=== PATIENT | male | born 1930 | race Caucasian/White ===

== ENCOUNTER 2016-12-05 16:38 | Inpatient (IN) | payer MEDICARE, OTHER ==
[~2016-12-05] VITALS: Ht 182.9 cm; Wt 88.5 kg
--- NOTE | 2016-12-05 16:38 | Emergency Room Report ---
History of Present Illness General Source: Patient, EMS Present Illness HPI [id number] sent from PMD for ?new onset Atrial fib Patient just got back from [place], had 6 days progressive SOB No chest pain, fever/chills, cough No history of asthma, COPD, CHF History of HTN, DM EMS strip shows sinus tach. Qwaves in v1-2 ST depression in V5 ECG from PMDs shows Atrial fib with RVR wo [address] depression Was given albuterol by EMS for wheezing Allergies: Coded Allergies: No Known Allergies (Unverified , 12/05/16) Patient History Past Medical History: DM, HTN Past Surgical History: none Pertinent Family History: none Social History: Denies: smoking, alcohol use, drug use Immunizations: UTD Reviewed Nursing Documentation: PMH: Agreed, PSxH: Agreed Review of Systems All Other Systems: negative except mentioned in HPI Physical Exam Sp02 EP Interpretation: reviewed, normal General Appearance: normal inspection, well appearing, no apparent distress, alert, GCS 15, non-toxic Head: normocephalic, atraumatic Eyes: bilateral eye PERRL, bilateral eye EOMI ENT: normal ENT inspection, hearing grossly normal, normal voice Neck: normal inspection, full range of motion, supple, no bony tend Respiratory: normal inspection, lungs clear, normal breath sounds, no respiratory distress, no retraction, wheezing Cardiovascular #1: regular rate, rhythm, no edema Gastrointestinal: normal inspection, normal bowel sounds, non tender, soft, no guarding, no hernia Genitourinary: no CVA tenderness Musculoskeletal: normal inspection, back normal, normal range of motion, Rina' s Sign negative Neurologic: normal inspection, alert, oriented x3, responsive, grab operator III-XII nml as tested, motor strength/tone normal, speech normal Psychiatric: normal inspection, judgement/insight normal, mood/affect normal Medical Decision Making Medicare Attestation I Cheyanne Loya MD hereby attest that the medical record entry for date of service, 12/05/16 accurately reflects signatures/notations that I made in my capacity as MD when I treated/diagnosed the above listed Medicare beneficiary. I attest that this information is true, accurate and complete to the best of my knowledge. I understand that any falsification, omission, or concealment of material fact may subject me to administrative, civil, or criminal liability. This patient warrants hospital admission for extreme of age and has a condition that cannot be treated as outpatient. Diagnostic Impression: Primary Impression: SOB (shortness of breath) Additional Impressions: Atrial fibrillation Qualified Codes: I48.91 - Unspecified atrial fibrillation Acute CHF (congestive heart failure) Qualified Codes: I50.9 - Heart failure, unspecified JAYNE (acute kidney injury) ER Course ?new onset Atrial Fib. Rate controlled to 118 Wheeze possibly cardiac wheeze, acute onset CHF from ?new onset Atrial fib CXR with diffuse pulm congestion New onset atrial fib ASA given Troponin 0. Likely cause of acute CHF Given low dose lopressor, HR now <100 Acute CHF Low dose lasix given BNP elevated Possible rll pna pn CXR Blood Cx pending Abx given for CAP Endorsed tele admit Dr Nickerson at 524pm EKG Diagnostic Results Rate: tachycardiac Rhythm: other - Atrial fib Rhythm Strip Diag. Results EP Interpretation: yes - 111 Rate: 111 Rhythm: NSR, no PVC's, no ectopy Chest X-Ray Diagnostic Results Chest X-Ray Diagnostic Results : Chest X-Ray Ordered: Yes Indication: Shortness of Breath EP Interpretation: Yes Interpretation: no pneumothorax, other - Diffuse pulm congestion. POssible right LL PNA Status: improved Disposition: ADMITTED INPATIENT Condition: Serious CHEYANNE LOYA M.D. Dec 05, 2016 16:38
[2016-12-05 16:42] VITALS: BP 130/8
[2016-12-05] MEDS ORDERED: Metoprolol 5mg/5ml Inj IVP SCH (17:15)
[2016-12-05 17:18] LABS: BASOPHILS % (AUTO) 0.8 % (0.0-2.0); EOSINOPHILS % (AUTO) 0.5 % (0.0-3.0); LYMPHOCYTES % (AUTO) 11.1 % (20.0-45.0); MEAN CORPUSCULAR VOLUME 95 FL (80-99); MEAN PLATELET VOLUME 6.7 FL (6.5-10.1); NEUTROPHILS % (AUTO) 79.6 % (45.0-75.0); PLATELET COUNT 349 K/UL (150-450); RED BLOOD COUNT 2.83 M/UL (4.70-6.10); RED CELL DISTRIBUTION WIDTH 11.1 % (11.6-14.8); WHITE BLOOD COUNT 12.5 K/UL (4.8-10.8)
[2016-12-05 17:39] LABS: TROPONIN I < 0.30 ng/mL (<=0.30)
[2016-12-05 17:40] LABS: ALANINE AMINOTRANSFERASE 27 U/L (3-41); ALBUMIN/GLOBULIN RATIO 1.6 (1.0-2.7); ANION GAP 14 (5-15); ASPARTATE AMINO TRANSFERASE 40 U/L (5-40); CALCIUM 8.7 mg/dL (8.6-10.2); CARBON DIOXIDE 22 mEQ/L (20-30); CHLORIDE 100 mEQ/L (98-107); CREATININE 2.6 mg/dL (0.7-1.2); HEMOLYSIS 0; POTASSIUM 3.8 mEQ/L (3.4-4.9); SODIUM 136 mEQ/L (135-145); TOTAL PROTEIN 6.3 g/dL (6.6-8.7)
[2016-12-05 17:50] LABS: CKMB 2.8 ng/mL (< 6.7)
[2016-12-05] MEDS ORDERED: DuoNeb 0.5-3(2.5)mg/3ml neb HHN PRN (18:15)
[2016-12-05] MEDS ORDERED: Miralax 17gm pkt ORAL PRN (18:15)
[2016-12-05] MEDS ORDERED: LANTUS5 UNITS SUBQ (19:16)
[2016-12-05 19:20] VITALS: BP 127/69
[2016-12-05 20:35] VITALS: BP 126/71
[2016-12-05] MEDS: Heparin 5000 units/ml inj SUBQ SCH (22:24)
[2016-12-06 00:26] VITALS: BP 160/58
[2016-12-06 04:13] VITALS: BP 132/66
[2016-12-06] MEDS: NovoLOG Insulin Flexpen SUBQ SCH ×5 (06:52→20:53)
[2016-12-06 07:08] LABS: BASOPHILS % (AUTO) 0.7 % (0.0-2.0); LYMPHOCYTES % (AUTO) 13.2 % (20.0-45.0); MEAN CORPUSCULAR HEMOGLOBIN 32.6 PG (27.0-31.0); MEAN CORPUSCULAR HGB CONC 34.6 G/DL (32.0-36.0); MEAN CORPUSCULAR VOLUME 94 FL (80-99); MEAN PLATELET VOLUME 6.8 FL (6.5-10.1); MONOCYTES % (AUTO) 8.5 % (1.0-10.0); NEUTROPHILS % (AUTO) 75.7 % (45.0-75.0); PLATELET COUNT 406 K/UL (150-450); RED BLOOD COUNT 3.04 M/UL (4.70-6.10); RED CELL DISTRIBUTION WIDTH 11.1 % (11.6-14.8); WHITE BLOOD COUNT 11.1 K/UL (4.8-10.8)
[2016-12-06 07:29] LABS: ANION GAP 16 (5-15); CARBON DIOXIDE 24 mEQ/L (20-30); CHLORIDE 103 mEQ/L (98-107); CREATININE 2.4 mg/dL (0.7-1.2); HEMOLYSIS 1; PHOSPHORUS 3.6 mg/dL (2.5-4.8); POTASSIUM 3.7 mEQ/L (3.4-4.9); SODIUM 143 mEQ/L (135-145)
[2016-12-06] MEDS: Heparin 5000 units/ml inj SUBQ SCH (08:57)
[2016-12-06 09:00] VITALS: BP 140/63
--- NOTE | 2016-12-06 10:10 | Diagnostic Imaging Report ---
Indication: SOB Technique: One view of the chest Comparison: none Findings: There is bilateral mostly interstitial edema versus infiltrates, with some airspace consolidation as well. Pleural spaces appear clear. Heart is enlarged. Impression: Bilateral infiltrates versus edema Cardiomegaly
--- NOTE | 2016-12-06 11:27 | Diagnostic Imaging Report ---
Indication: DYSPNEA Technique: One view of the chest Comparison: none Findings: Better inspiration on the current and the previous exam. There is slightly increased infiltrate in the right upper lobe. There is interim resolution of previously demonstrated right basilar infiltrate. There is some patchy consolidation in the left perihilar region. Generalized interstitial congestion has improved. Pleural spaces remain clear. Impression: Interstitial edema has overall improved. Focal airspace consolidation at the right lung base has resolved. There is increased consolidation in the right upper lobe and left perihilar region
[2016-12-06 12:00] VITALS: BP 116/78
--- NOTE | 2016-12-06 12:41 | History and Physical ---
History of Present Illness General Date patient seen: Dec 06, 2016 Reason for Hospitalization: Dyspnea/Respdistress Present Illness HPI 86 year ld male with hx of DM, HTN sent from [facility] for new onset Atrial fib. Patient just got back from [place], had 6 days progressive SOB No chest pain, fever/chills, cough. . EMS strip shows sinus tach. Pt was in and out of afib in ER. Initial CXR showed cardiomegaly and pulmonary edema, +/- infiltrate. Pt has dry cough and doesn't recall having fever or chills. Allergies: Coded Allergies: No Known Allergies (Unverified , 12/05/16) Medication History Scheduled Insulin Glargine (Lantus), 15 SUBQ BEDTIME, (Reported) Patient History Healthcare decision maker Resuscitation status Full Code Advanced Directive on File No Past Medical/Surgical History Past Medical/Surgical History: (1) Diabetes mellitus (2) Hypertension Review of Systems Constitutional: Reports: malaise Respiratory: Reports: cough, wheezing Physical Exam Lines, tubes and drains: peripheral HEENT: normocephalic, anicteric Neck: non-tender, normal alignment Respiratory/Chest: chest wall non-tender, lungs clear, expiratory wheezing Cardiovascular/Chest: normal peripheral pulses, normal rate Genitourinary/Rectal: normal genital exam, normal rectal exam Last 24 Hour Vital Signs Date Time Temp Pulse Resp B/P (MAP) Pulse Ox O2 Delivery O2 Flow Rate FiO2 12/06/16 12:00 97.8 74 20 116/78 98 Room Air 12/06/16 09:00 97.7 73 21 140/63 98 Nasal Cannula 2.0 12/06/16 08:00 75 12/06/16 07:52 Nasal Cannula 2.0 28 12/06/16 07:51 96 Nasal Cannula 2.0 28 12/06/16 07:50 68 20 Nasal Cannula 2.0 28 12/06/16 04:13 98.1 65 20 132/66 94 Nasal Cannula 2.0 12/06/16 04:00 69 12/06/16 00:26 98.0 77 20 160/58 96 Nasal Cannula 2.0 12/06/16 00:00 74 12/05/16 21:00 71 12/05/16 20:35 98.6 121 32 126/71 93 Nasal Cannula 2.0 12/05/16 19:49 98.6 107 32 127/69 91 Nasal Cannula 2.0 12/05/16 19:30 Nasal Cannula 2.0 28 12/05/16 19:30 95 Nasal Cannula 2.0 28 12/05/16 19:30 114 20 Nasal Cannula 2.0 28 12/05/16 19:20 107 32 127/69 91 Nasal Cannula 2.0 12/05/16 17:35 129 128/74 12/05/16 16:42 89 28 T-piece 5.0 12/05/16 16:42 98.6 22 130/8 90 Room Air 12/05/16 16:32 98.6 118 22 130/8 90 Room Air Laboratory Tests Test 12/05/16 16:32 12/06/16 06:20 White Blood Count 12.5 K/UL (4.8-10.8) H 11.1 K/UL (4.8-10.8) H Red Blood Count 2.83 M/UL (4.70-6.10) L 3.04 M/UL (4.70-6.10) L Hemoglobin 9.6 G/DL (14.2-18.0) L 9.9 G/DL (14.2-18.0) L Hematocrit 26.7 % (42.0-52.0) L 28.6 % (42.0-52.0) L Mean Corpuscular Volume 95 FL (80-99) 94 FL (80-99) Mean Corpuscular Hemoglobin 34.0 PG (27.0-31.0) H 32.6 PG (27.0-31.0) H Mean Corpuscular Hemoglobin Concent 36.0 G/DL (32.0-36.0) 34.6 G/DL (32.0-36.0) Red Cell Distribution Width 11.1 % (11.6-14.8) L 11.1 % (11.6-14.8) L Platelet Count 349 K/UL (150-450) 406 K/UL (150-450) Mean Platelet Volume 6.7 FL (6.5-10.1) 6.8 FL (6.5-10.1) Neutrophils (%) (Auto) 79.6 % (45.0-75.0) H 75.7 % (45.0-75.0) H Lymphocytes (%) (Auto) 11.1 % (20.0-45.0) L 13.2 % (20.0-45.0) L Monocytes (%) (Auto) 8.0 % (1.0-10.0) 8.5 % (1.0-10.0) Eosinophils (%) (Auto) 0.5 % (0.0-3.0) 2.0 % (0.0-3.0) Basophils (%) (Auto) 0.8 % (0.0-2.0) 0.7 % (0.0-2.0) Sodium Level 136 mEQ/L (135-145) 143 mEQ/L (135-145) Potassium Level 3.8 mEQ/L (3.4-4.9) 3.7 mEQ/L (3.4-4.9) Chloride Level 100 mEQ/L (98-107) 103 mEQ/L (98-107) Carbon Dioxide Level 22 mEQ/L (20-30) 24 mEQ/L (20-30) Anion Gap 14 (5-15) 16 (5-15) H Blood Urea Nitrogen 42 mg/dL (7-23) H 38 mg/dL (7-23) H Creatinine 2.6 mg/dL (0.7-1.2) H 2.4 mg/dL (0.7-1.2) H Estimat Glomerular Filtration Rate mL/min (>60) mL/min (>60) Glucose Level 282 mg/dL (74-106) H 163 mg/dL (74-106) #H Calcium Level 8.7 mg/dL (8.6-10.2) 9.0 mg/dL (8.6-10.2) Total Bilirubin 0.5 mg/dL (0.0-1.2) Aspartate Amino Transf (AST/SGOT) 40 U/L (5-40) Alanine Aminotransferase (ALT/SGPT) 27 U/L (3-41) Alkaline Phosphatase 111 U/L (40-129) Total Creatine Kinase 186 U/L (38-174) H Creatine Kinase MB 2.8 ng/mL (< 6.7) Creatine Kinase MB Relative Index 1.5 Troponin I < 0.30 ng/mL (<=0.30) Pro-B-Type Natriuretic Peptide 68943 pg/mL (0-450) H Total Protein 6.3 g/dL (6.6-8.7) L Albumin 3.9 g/dL (3.5-5.2) 3.0 g/dL (3.5-5.2) L Globulin 2.4 g/dL Albumin/Globulin Ratio 1.6 (1.0-2.7) Phosphorus Level 3.6 mg/dL (2.5-4.8) Height (Feet): 6 Height (Inches): 0.00 Weight (Pounds): 191 Medications Current Medications Medications (Trade) Dose Ordered Sig/Nitin Route PRN Reason Start Time Stop Time Status Last Admin Dose Admin Acetaminophen (Tylenol) 650 mg Q4H PRN ORAL T>100.5 12/05/16 18:15 01/04/17 18:14 Albuterol/ Ipratropium (DuoNeb 0.5-3(2.5)mg/3ml) 3 ml Q4H PRN HHN Shortness of Breath 12/05/16 18:15 12/10/16 18:14 Cetylpyridinium Chloride (Cepacol) 1 lozenge Q6HR PRN DUNG SORE THROAT 12/05/16 22:15 01/04/17 22:14 12/05/16 22:23 Dextrose (Dextrose 50%) STAT PRN IV Hypoglycemia 12/05/16 21:45 01/04/17 21:44 Furosemide (Lasix) 40 mg EVERY 8 HOURS IV 12/05/16 22:00 01/04/17 21:59 12/06/16 06:49 Heparin Sodium (Porcine) (Heparin 5000 units/ml) 5,000 units EVERY 12 HOURS SUBQ 12/05/16 21:00 01/04/17 20:59 12/06/16 08:57 Insulin Aspart (NovoLOG) BEFORE MEALS AND HS SUBQ 12/05/16 23:00 01/04/17 22:59 12/06/16 11:19 Ondansetron HCl (Zofran) 4 mg Q6H PRN IVP Nausea & Vomiting 12/05/16 18:15 01/04/17 18:14 Polyethylene Glycol (Miralax) 17 gm DAILYPRN PRN ORAL Constipation 12/05/16 18:15 01/04/17 18:14 Temazepam (Restoril) 15 mg HSPRN PRN ORAL Insomnia 12/05/16 21:00 12/12/16 20:59 Assessment/Plan Problem List: (1) Acute CHF (congestive heart failure) ICD Codes: I50.9 - Heart failure, unspecified SNOMED: 67539745 Qualifiers: Qualified Codes: I50.9 - Heart failure, unspecified (2) ATN (acute tubular necrosis) ICD Codes: N17.0 - Acute kidney failure with tubular necrosis SNOMED: 81749639 (3) Atrial fibrillation ICD Codes: I48.91 - Unspecified atrial fibrillation SNOMED: 12695615 Qualifiers: Qualified Codes: I48.91 - Unspecified atrial fibrillation (4) Hypertension ICD Codes: I10 - Essential (primary) hypertension SNOMED: 97531617 (5) Diabetes mellitus ICD Codes: E11.9 - Type 2 diabetes mellitus without complications SNOMED: 05382705 Assessment/Plan cardiac evaluation rate control check sputum, check BNP sliding scale, diabetic diet respiratory treatment cardio will decide about anticoagulation ENOC BUSCH Dec 06, 2016 12:41
[2016-12-06] MEDS ORDERED: Promethazine/Codeine 5ml UD ORAL PRN (14:00)
[2016-12-06 14:10] LABS: URIC ACID 10.5 mg/dL (3.0-7.5)
--- NOTE | 2016-12-06 14:11 | Consultation ---
Consult Note Consult Note asked to eval for renal failure HPI 86YOM sent from PMD for ?new onset Atrial fib Patient just got back from [place], had 6 days progressive SOB No chest pain, fever/chills, cough No history of asthma, COPD, CHF History of HTN, DM EMS strip shows sinus tach. Qwaves in v1-2 ST depression in V5 ECG from PMDs shows Atrial fib with RVR wo [address] Was given albuterol by EMS for wheezing Patient interviewed , examined- data reviewed . Assessment/Plan Renal failure , likely chronic , possible superimposed acute Anemia, likely chronic HTN DM presents with SOB , whezzing- Atrial fibrillation - h/o Prostate Ca and surgery- incontinent h/o Back surgery Plan: 2D Echo- Kidney LISA- UA- optimize cardiac and pulmonary status- Anemia cordova- Avoid Nephrotoxics- keep BP and BS in check MILKA VALDEZ Dec 06, 2016 14:11
--- NOTE | 2016-12-06 15:05 | Cardiology Progress Note ---
Assessment/Plan Assessment/Plan afib rvr spont converted to sinus recent nocturnal palpitation 2-3 weeks pneumonia dm htn cva hx prostate cnacer s/ reection hs fo bacteremia 1 yearago arf on crf cad hs s/p stent 2001 converted to sinus but has noted episodes of palp at nite fortheh past 2-3 week as devestating as a stroke could be will place on anticoagual tion and monitor on tele and outpt with ziopatch will have echo keep on tele treat underlying lung infection [id number] Objective Last 24 Hour Vital Signs Date Time Temp Pulse Resp B/P (MAP) Pulse Ox O2 Delivery O2 Flow Rate FiO2 12/06/16 12:00 97.8 74 20 116/78 98 Room Air 12/06/16 09:00 97.7 73 21 140/63 98 Nasal Cannula 2.0 12/06/16 08:00 75 12/06/16 07:52 Nasal Cannula 2.0 28 12/06/16 07:51 96 Nasal Cannula 2.0 28 12/06/16 07:50 68 20 Nasal Cannula 2.0 28 12/06/16 04:13 98.1 65 20 132/66 94 Nasal Cannula 2.0 12/06/16 04:00 69 12/06/16 00:26 98.0 77 20 160/58 96 Nasal Cannula 2.0 12/06/16 00:00 74 12/05/16 21:00 71 12/05/16 20:35 98.6 121 32 126/71 93 Nasal Cannula 2.0 12/05/16 19:49 98.6 107 32 127/69 91 Nasal Cannula 2.0 12/05/16 19:30 Nasal Cannula 2.0 28 12/05/16 19:30 95 Nasal Cannula 2.0 28 12/05/16 19:30 114 20 Nasal Cannula 2.0 28 12/05/16 19:20 107 32 127/69 91 Nasal Cannula 2.0 12/05/16 17:35 129 128/74 12/05/16 16:42 89 28 T-piece 5.0 12/05/16 16:42 98.6 22 130/8 90 Room Air 12/05/16 16:32 98.6 118 22 130/8 90 Room Air Laboratory Tests Test 12/05/16 16:32 12/06/16 06:20 12/06/16 06:43 White Blood Count 12.5 K/UL (4.8-10.8) H 11.1 K/UL (4.8-10.8) H Red Blood Count 2.83 M/UL (4.70-6.10) L 3.04 M/UL (4.70-6.10) L Hemoglobin 9.6 G/DL (14.2-18.0) L 9.9 G/DL (14.2-18.0) L Hematocrit 26.7 % (42.0-52.0) L 28.6 % (42.0-52.0) L Mean Corpuscular Volume 95 FL (80-99) 94 FL (80-99) Mean Corpuscular Hemoglobin 34.0 PG (27.0-31.0) H 32.6 PG (27.0-31.0) H Mean Corpuscular Hemoglobin Concent 36.0 G/DL (32.0-36.0) 34.6 G/DL (32.0-36.0) Red Cell Distribution Width 11.1 % (11.6-14.8) L 11.1 % (11.6-14.8) L Platelet Count 349 K/UL (150-450) 406 K/UL (150-450) Mean Platelet Volume 6.7 FL (6.5-10.1) 6.8 FL (6.5-10.1) Neutrophils (%) (Auto) 79.6 % (45.0-75.0) H 75.7 % (45.0-75.0) H Lymphocytes (%) (Auto) 11.1 % (20.0-45.0) L 13.2 % (20.0-45.0) L Monocytes (%) (Auto) 8.0 % (1.0-10.0) 8.5 % (1.0-10.0) Eosinophils (%) (Auto) 0.5 % (0.0-3.0) 2.0 % (0.0-3.0) Basophils (%) (Auto) 0.8 % (0.0-2.0) 0.7 % (0.0-2.0) Sodium Level 136 mEQ/L (135-145) 143 mEQ/L (135-145) Potassium Level 3.8 mEQ/L (3.4-4.9) 3.7 mEQ/L (3.4-4.9) Chloride Level 100 mEQ/L (98-107) 103 mEQ/L (98-107) Carbon Dioxide Level 22 mEQ/L (20-30) 24 mEQ/L (20-30) Anion Gap 14 (5-15) 16 (5-15) H Blood Urea Nitrogen 42 mg/dL (7-23) H 38 mg/dL (7-23) H Creatinine 2.6 mg/dL (0.7-1.2) H 2.4 mg/dL (0.7-1.2) H Estimat Glomerular Filtration Rate mL/min (>60) mL/min (>60) Glucose Level 282 mg/dL (74-106) H 163 mg/dL (74-106) #H Calcium Level 8.7 mg/dL (8.6-10.2) 9.0 mg/dL (8.6-10.2) Total Bilirubin 0.5 mg/dL (0.0-1.2) Aspartate Amino Transf (AST/SGOT) 40 U/L (5-40) Alanine Aminotransferase (ALT/SGPT) 27 U/L (3-41) Alkaline Phosphatase 111 U/L (40-129) Total Creatine Kinase 186 U/L (38-174) H 114 U/L (38-174) Creatine Kinase MB 2.8 ng/mL (< 6.7) Creatine Kinase MB Relative Index 1.5 Troponin I < 0.30 ng/mL (<=0.30) Pro-B-Type Natriuretic Peptide 35447 pg/mL (0-450) H Total Protein 6.3 g/dL (6.6-8.7) L Albumin 3.9 g/dL (3.5-5.2) 3.0 g/dL (3.5-5.2) L Globulin 2.4 g/dL Albumin/Globulin Ratio 1.6 (1.0-2.7) Phosphorus Level 3.6 mg/dL (2.5-4.8) Uric Acid 10.5 mg/dL (3.0-7.5) H ARACELI PAULSON Dec 06, 2016 15:05
[2016-12-06 15:47] LABS: APPEARANCE,URINE CLEAR; KETONES,URINE NEGATIVE (NEGATIVE); LEUKOCYTE ESTERASE ,URINE NEGATIVE (NEGATIVE); NITRITE,URINE NEGATIVE (NEGATIVE); PH,URINE 6 (4.5-8.0); PROTEIN,URINE NEGATIVE (NEGATIVE); UROBILINOGEN,URINE NORMAL MG/DL (0.0-1.0)
[2016-12-06 16:00] VITALS: BP 146/64
[2016-12-06 16:09] LABS: AMORPHOUS SEDIMENT,UR FEW /LPF; BACTERIA,URINE FEW /HPF; RBC,URINE 0-2 /HPF (0 - 0); WBC,URINE 0-2 /HPF (0 - 0)
[2016-12-06] MEDS: Eliquis 2.5mg tablet ORAL SCH (16:28)
[2016-12-06 20:00] VITALS: BP 138/57
[2016-12-06] MEDS ORDERED: Diltiazem 25mg/5ml IV ONE (20:30)
[2016-12-06] MEDS: Amiodarone 200mg tab ORAL SCH (20:51)
--- NOTE | 2016-12-06 23:06 | Consultation ---
Consult Note Consult Note ID DIC # [id number] VALERIA PATIÑO M.D. Dec 06, 2016 23:06
[2016-12-07] VITALS (7 sets, daily range): BP systolic 106–140; BP diastolic 56–79
--- NOTE | 2016-12-07 05:15 | Consultation ---
DATE OF CONSULTATION: 12/06/2016 CARDIOLOGY CONSULTATION REFERRING PHYSICIAN: Lilli Nickerson M.D. REASON FOR REFERRAL: Atrial fibrillation. History of Present Illness: This is an elderly gentleman whose information is obtained from the patient directly and from review of the patient's chart. He has had a trip to [place] last week. When he returned, he was fine the first day, second day he developed some sore throat, not feeling good, and he hardly could get out of bed and waited for few days to see if the symptoms would resolve. Yesterday, he went to his primary care physician. He was told to go to the emergency room, 911 was summoned and the patient was brought to the emergency room at [facility]. He really does not have any chest pain. He does have some shortness of breath, but there is no PND or orthopnea. He has had some shortness of breath with exertion and has had occasional palpitations, mainly during the night over the past three or four weeks that he has noticed. There is no syncope. His walking is limited mainly because of his recent hip surgery, although some shortness of breath component is also there, but may be limitation because of his hip surgery. On a trip, he did walk some half a block and he had to stop because of his hip. However, he has been doing more poorly recently. Past Medical History: Positive for diabetes and high blood pressure. His records at [facility] were reviewed. He was hospitalized back in 2016 and diagnosis with status post laminectomy with L4-L5 decompression with strep bacteremia, acute kidney failure on chronic renal insufficiency secondary to volume depletion on top of baseline abnormality, anemia and urinary incontinence. He does have a history of prostate cancer for which a prostatectomy was performed in 1993. He has had some problems with incontinence that he has been followed at [facility] as well as at [facility]. He has coronary disease, status post percutaneous coronary angioplasty and stent in 2001. 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 ALLERGIES: None. Social History: He never smoked or drank. He is retired. 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 has apparently dementia. He has two daughters in the area that he is hoping will come by and visit him later tonight. Review Of Systems: Gastrointestinal: He denies any nausea or vomiting. No diarrhea. No bloody or black stool. Genitourinary: Negative. Pulmonary: Positive for coughing, congestion and wheezing. Cardiac: As mentioned in HPI. Constitutional: Not feeling good and some rigors have been noted. PHYSICAL EXAMINATION: General: The patient to be elderly gentleman, in no apparent respiratory distress. Neck: Supple. No jugular venous distention. No abdominojugular reflux noted. Lungs: Appear to be clear to auscultation and percussion. He has rhonchi and expiratory wheezes. Cardiac: S1 is normal. S2 is normal. Regular rate and rhythm. No heaves or thrills noted. ABDOMEN: Soft and nontender. Positive bowel sounds. Extremities: There is no clubbing, cyanosis, nor is there any edema of significant degree. NEUROLOGICAL: Appears to be normal. Laboratory And Diagnostic Data: His EKG shows atrial fibrillation, ventricular response appears to be rapid at times. He has had heart rates in excess of 150 on telemetry, but he subsequently converted and the duration of time that he was in atrial fibrillation unfortunately is not completely clear to me. His QRS complexes do not seem to be any different than they were on his EKG from 2004, although as mentioned, he was in atrial fibrillation and at times that he has been converted to sinus rhythm already. Laboratory values, white count 11.5, hemoglobin 9.9, and platelet count of 406,000. His sodium is 143, potassium 3.7, chloride 103, bicarbonate 24, BUN 38, creatinine 2.4 and glucose of 163 down from 282. His uric acid is 10.5. Calcium is 9. His CK of 114 down from 183. Troponin first set is less than 0.3. ProBNP is 10,657. Albumin is 3. A chest x-ray was performed at the time of admission, bilateral infiltrates versus edema and cardiomegaly were documented on the chest x-ray. Repeat chest x-ray shows better inspiration, increased infiltrate in the right upper lobe, resolution of right basal infiltrate, some patchy consolidation in left parahilar region, generalized interstitial congestion has improved. Pleural spaces remained clear. ASSESSMENT: 1. Probable underlying pneumonia. 2. Episode of atrial fibrillation down spontaneously converted to sinus rhythm. 3. Diabetes mellitus. 4. Hypertension. 5. Chronic renal insufficiency. 6. Anemia. 7. History of bacteremia. 8. Prostate cancer status post resection. 9. History of urinary incontinence. Plan: Dr. Nickerson, this patient was seen in cardiac consultation at the time of his initial presentation for his atrial fibrillation at times with rapid ventricular response. He has got some risk factors for stroke including diabetes mellitus, high blood pressure, prior CVA as well as age and gender. In that regard, he should be on anticoagulation, however, the duration of his atrial fibrillations are unknown. He does indicate that for the past two to three months, he has been feeling rapid heart beats mainly at night and that may need to be considered in decision of putting him on anticoagulation. Because of the risk of stroke being so devastating, I think probably we would place him on some low-dose Eliquis for the time being. He has no significant fall. He should be followed up over the next few weeks to see if he has recurrence of atrial fibrillation and if he had to evaluate his atrial fibrillation burden with event monitors as an outpatient to eventually decide whether he should be on anticoagulation longer time or not. Copies of [facility] records have been reviewed and addended as part of the patient's present chart for everyone else to review as well. Of note, his creatinine of 2.6 when compared to his prior creatinine that is available through the [employer] system appears to be higher than his last one in September 2016, creatinine of 1.7. Fan Sheikh M.D. DR: DEVIN JOB#: [id number] CC:
[2016-12-07] MEDS: Amiodarone 200mg tab ORAL SCH ×3 (05:37→21:34)
[2016-12-07] MEDS: NovoLOG Insulin Flexpen SUBQ SCH ×4 (06:33→21:36)
[2016-12-07 08:08] LABS: MEAN CORPUSCULAR HGB CONC 33.9 G/DL (32.0-36.0); MEAN CORPUSCULAR VOLUME 94 FL (80-99); MEAN PLATELET VOLUME 6.6 FL (6.5-10.1); PLATELET COUNT 487 K/UL (150-450); RED BLOOD COUNT 3.39 M/UL (4.70-6.10); RED CELL DISTRIBUTION WIDTH 11.2 % (11.6-14.8); WHITE BLOOD COUNT 10.5 K/UL (4.8-10.8)
[2016-12-07 08:21] LABS: CRP QUANT 8.8 mg/dL (< 0.5); MAGNESIUM 1.6 mg/dL (1.7-2.5); PHOSPHORUS 3.5 mg/dL (2.5-4.8); URIC ACID 11.6 mg/dL (3.0-7.5)
[2016-12-07 08:22] LABS: TROPONIN I < 0.30 ng/mL (<=0.30)
[2016-12-07 08:25] LABS: ALANINE AMINOTRANSFERASE 26 U/L (3-41); ALBUMIN/GLOBULIN RATIO 0.9 (1.0-2.7); ANION GAP 15 (5-15); ASPARTATE AMINO TRANSFERASE 31 U/L (5-40); CALCIUM 8.8 mg/dL (8.6-10.2); CARBON DIOXIDE 24 mEQ/L (20-30); CHLORIDE 99 mEQ/L (98-107); CHOLESTEROL 96 mg/dL (< 200); CHOLESTEROL/HDL RATIO 4.8 (3.3-4.4); CREATININE 2.8 mg/dL (0.7-1.2); LACTATE DEHYDROGENASE 254 U/L (135-230); LDL CHOLESTEROL (CALC.) 52 mg/dL (60-99); POTASSIUM 3.8 mEQ/L (3.4-4.9); SODIUM 138 mEQ/L (135-145); TOTAL PROTEIN 6.3 g/dL (6.6-8.7)
[2016-12-07 08:32] LABS: FERRITIN 317 ng/mL (10-230)
[2016-12-07 08:50] LABS: INR 1.1 (0.9-1.1); PROTHROMBIN TIME 11.3 SEC (9.30-11.50)
[2016-12-07 08:54] LABS: IRON 31 ug/dL (59-158); TOTAL IRON BINDING CAPACITY 161 ug/dL (250-400)
[2016-12-07] MEDS: Eliquis 2.5mg tablet ORAL SCH ×2 (09:08→17:12)
[2016-12-07 09:14] LABS: ERYTHROCYTE SEDIMENTATION RATE 115 MM/HR (0-30); PATH BLOOD SMEAR/OMC SENT TO PATHOLOGIST; RETICULOCYTE COUNT 1.1 % (0.0-2.0)
[2016-12-07 09:54] LABS: EOSINOPHILS % (MANUAL) 3 % (0-3); LYMPHOCYTES % (MANUAL) 14 % (20-45); NEUTROPHILS % (MANUAL) 78 % (45-75); TOTAL CELLS COUNTED 100
[2016-12-07 09:55] LABS: BAND NEUTROPHILS % (MANUAL) 0 % (0-8); BASOPHILS % (MANUAL) 0 % (0-2); HYPOCHROMASIA 1+; PLATELET ESTIMATE ADEQUATE
--- NOTE | 2016-12-07 10:15 | Consultation ---
DATE OF CONSULTATION: 12/06/2016 INFECTIOUS DISEASES CONSULTATION CONSULTING PHYSICIAN: Loi Breen M.D. REFERRING PHYSICIAN: Lilli Nickerson M.D. REASON FOR CONSULTATION: Evaluation of the patient for pneumonia. History of present illness: The patient is an 86-year-old male with multiple medical problems, who was admitted to this medical center due to the shortness of breath that was progressive recently. The patient's workup was suggestive of AFib. Chest x-ray showed pulmonary edema and cardiomegaly. Denies having fever and chills. Infectious Diseases consultation has been requested for further evaluation of the patient and antibiotic management. PAST MEDICAL HISTORY: 1. History of prostate cancer. 2. History of diabetes. 3. History of knee replacement and shoulder surgery. MEDICATIONS: Levaquin. ALLERGIES: No known drug allergies. SOCIAL HISTORY: The patient lives at home. FAMILY HISTORY: Not contributing. Review of systems: HEENT: No recent change in vision or hearing. Pulmonary: As mentioned above. No significant cough, mostly shortness of breath. Cardiovascular: As mentioned above. Gastrointestinal/Abdomen: No nausea or vomiting. Genitourinary: No dysuria. Musculoskeletal: As mentioned above. PHYSICAL EXAMINATION: Vital signs: Temperature 98, blood pressure 138/57, pulse rate 50, and respiratory rate 18. HEENT: No pale conjunctivae. No icterus. NECK: No lymphadenopathy. CHEST: Clear. HEART: S1 and S2. ABDOMEN: Soft. EXTREMITIES: No cyanosis at this time. NEUROLOGICAL: He is awake and alert. Laboratory data: White blood cells 12.5, hemoglobin 9.9, and platelets 406. UA is unremarkable. BUN and creatinine 2.4. ALT, AST, and alkaline phosphatase are unremarkable. Diagnostic data: Chest x-ray, interstitial edema with focal consolidation in the right lung base and right upper lobe and left perihilar region. ASSESSMENT: The patient is an 86-year-old male with: 1. Possible healthcare-associated pneumonia. 2. Shortness of breath due to the above versus congestive heart failure. 3. Leukocytosis, improving. 4. Afebrile. 5. History of prostate cancer. 6. Diabetes. 7. Status post knee replacement and shoulder surgery. PLAN: 1. We will continue the patient on Levaquin day #2/5. 2. Monitor CBC. 3. Monitor BMP. 4. Monitor chest x-ray. 5. Follow up renal and Nephrology recommendation regarding renal insufficiency. 6. Monitor culture (blood and sputum). 7. Based on the patient's clinical course and labs, we will do further recommendation. Thank you, Dr. Nickerson,for allowing me to participate in the care of this patient. I will follow the patient with you during this hospitalization. Loi Breen M.D. DR: Kalpesh JOB#: [id number] CC:
--- NOTE | 2016-12-07 10:41 | Diagnostic Imaging Report ---
Indication: Abnormal renal function tests Technique: Grayscale and duplex images of the kidneys, retroperitoneum, and bladder were obtained. Comparison:None Findings: Right kidney measures 10.3 cm in length. Left kidney measures 11 cm in length. Both kidneys demonstrate normal echogenicity. No hydronephrosis. No focal abnormality. Normal inferior vena cava. Bladder is normal. Impression: negative.
--- NOTE | 2016-12-07 11:44 | Pulmonology Progress Note ---
Assessment/Plan Problems: (1) Acute CHF (congestive heart failure) (2) Atrial fibrillation (3) ATN (acute tubular necrosis) (4) Hypertension (5) Diabetes mellitus Assessment/Plan on amiodarone, Eliquis started sliding scale continue abx / levoflox pt/ot dc when heart rate better. Subjective ROS Limited/Unobtainable: No Interval Events: feeling better, less cough Constitutional: Reports: fever Allergies: Coded Allergies: No Known Allergies (Unverified , 12/05/16) Objective Last 24 Hour Vital Signs Date Time Temp Pulse Resp B/P (MAP) Pulse Ox O2 Delivery O2 Flow Rate FiO2 12/07/16 08:00 97.5 64 16 117/59 95 Nasal Cannula 3.0 12/07/16 07:42 Nasal Cannula 2.0 12/07/16 07:41 94 Nasal Cannula 2.0 12/07/16 07:40 80 20 Nasal Cannula 2.0 12/07/16 06:39 86 121/64 12/07/16 04:23 112 12/07/16 04:11 98.1 95 18 140/66 94 Nasal Cannula 2.0 12/07/16 00:21 110 140/79 12/07/16 00:06 102 12/07/16 00:00 98.0 110 20 140/79 94 Nasal Cannula 3.0 12/06/16 20:35 85 138/57 12/06/16 20:00 98.2 76 18 138/57 93 Nasal Cannula 2.0 12/06/16 19:53 79 12/06/16 19:30 94 Nasal Cannula 2.0 12/06/16 19:30 120 20 Nasal Cannula 2.0 12/06/16 19:30 Nasal Cannula 2.0 12/06/16 17:55 81 125/66 12/06/16 16:00 97.5 77 21 146/64 91 Nasal Cannula 2.0 12/06/16 16:00 84 12/06/16 15:25 72 20 97 Nasal Cannula 2.0 12/06/16 15:20 70 20 93 Nasal Cannula 2.0 12/06/16 12:00 97.8 74 20 116/78 98 Room Air 12/06/16 12:00 73 General Appearance: WD/WN HEENT: normocephalic, atraumatic Respiratory/Chest: chest wall non-tender, lungs clear Cardiovascular: normal peripheral pulses, normal rate Abdomen: normal bowel sounds, soft, non tender Genitourinary: normal external genitalia 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 Lymphatic: no neck adenopathy Microbiology Date/Time Source Procedure Growth Status 12/05/16 21:45 Blood Blood Culture - Preliminary NO GROWTH AFTER 24 HOURS Resulted 12/05/16 21:30 Blood Blood Culture - Preliminary NO GROWTH AFTER 24 HOURS Resulted Laboratory Tests 12/06/16 15:20: Urine Color Pale yellow, Urine Appearance Clear, Urine pH 6, Urine Specific [place] 1.005, Urine Protein Negative, Urine Glucose (UA) Negative, Urine Ketones Negative, Urine Occult Blood Negative, Urine Nitrite Negative, Urine Bilirubin Negative, Urine Urobilinogen Normal, Urine Leukocyte Esterase Negative , Urine RBC 0-2H, Urine WBC 0-2, Urine Squamous Epithelial Cells None, Urine Amorphous Sediment FewH, Urine Bacteria Few, Urine Eosinophils None seen, Urine Random Sodium 129, Urine Potassium Timed 11 12/07/16 08:00: White Blood Count 10.5, Red Blood Count 3.39L, Hemoglobin 10.9L, Hematocrit 32.0L, Mean Corpuscular Volume 94, Mean Corpuscular Hemoglobin 32.0H, Mean Corpuscular Hemoglobin Concent 33.9, Red Cell Distribution Width 11.2L, Platelet Count 487H, Mean Platelet Volume 6.6, Neutrophils (%) (Auto) , Lymphocytes (%) (Auto) , Monocytes (%) (Auto) , Eosinophils (%) (Auto) , Basophils (%) (Auto) , Differential Total Cells Counted 100, Neutrophils % ( Manual) 78H, Lymphocytes % (Manual) 14L, Monocytes % (Manual) 5, Eosinophils % ( Manual) 3, Basophils % (Manual) 0, Band Neutrophils 0, Platelet Estimate Adequate, Platelet Morphology , Giant Platelets 1+, Hypochromasia 1+, Erythrocyte Sedimentation Rate 115H, Reticulocyte Count 1.1, Prothrombin Time 11.3, Prothromb Time International Ratio 1.1, Activated Partial Thromboplast Time 30, Sodium Level 138, Potassium Level 3.8, Chloride Level 99, Carbon Dioxide Level 24, Anion Gap 15, Blood Urea Nitrogen 41H, Creatinine 2.8H, Estimat Glomerular Filtration Rate , Glucose Level 304#H, Hemoglobin A1c 6.9H, Uric Acid 11.6H, Calcium Level 8.8, Phosphorus Level 3.5, Magnesium Level 1.6L, Iron Level 31L, Total Iron Binding Capacity 161L, Percent Iron Saturation 19, Unsaturated Iron Binding 130, Ferritin 317H, Total Bilirubin 0.5, Gamma Glutamyl Transpeptidase 26, Aspartate Amino Transf (AST/SGOT) 31, Alanine Aminotransferase (ALT/SGPT) 26, Alkaline Phosphatase 116, Lactate Dehydrogenase 254H, Troponin I < 0.30, C-Reactive Protein, Quantitative 8.8H, Pro-B-Type Natriuretic Peptide 4269H, Total Protein 6.3L, Albumin 3.1L, Globulin 3.2, Albumin/Globulin Ratio 0.9L, Triglycerides Level 122, Cholesterol Level 96, LDL Cholesterol 52L, HDL Cholesterol 20, Cholesterol/HDL Ratio 4.8H, Carcinoembryonic Antigen 1.8, Vitamin B12 Level 691, Folate [Pending], Thyroid Stimulating Hormone (TSH) 1.980 Current Medications Medications (Trade) Dose Ordered Sig/Nitin Route PRN Reason Start Time Stop Time Status Last Admin Dose Admin Acetaminophen (Tylenol) 650 mg Q4H PRN ORAL T>100.5 12/05/16 18:15 01/04/17 18:14 Albuterol/ Ipratropium (DuoNeb 0.5-3(2.5)mg/3ml) 3 ml Q4H PRN HHN Shortness of Breath 12/05/16 18:15 12/10/16 18:14 12/06/16 15:29 Amiodarone HCl (Cordarone) 200 mg Q8HR ORAL 12/06/16 21:00 01/05/17 20:59 12/07/16 05:37 Apixaban (Eliquis) 2.5 mg BID ORAL 12/06/16 16:00 01/05/17 15:59 12/07/16 09:08 Cetylpyridinium Chloride (Cepacol) 1 lozenge Q6HR PRN DUNG SORE THROAT 12/05/16 22:15 01/04/17 22:14 12/05/16 22:23 Dextrose (Dextrose 50%) STAT PRN IV Hypoglycemia 12/05/16 21:45 01/04/17 21:44 Diltiazem HCl (Cardizem) 30 mg EVERY 6 HOURS ORAL 12/06/16 18:00 01/05/17 17:59 12/07/16 06:39 Furosemide (Lasix) 40 mg Q12HR IV 12/06/16 21:00 01/05/17 20:59 12/07/16 09:09 Insulin Aspart (NovoLOG) BEFORE MEALS AND HS SUBQ 12/05/16 23:00 01/04/17 22:59 12/07/16 06:33 Levofloxacin 50 ml @ 50 mls/hr Q24H IVPB 12/07/16 15:00 12/14/16 14:59 Ondansetron HCl (Zofran) 4 mg Q6H PRN IVP Nausea & Vomiting 12/05/16 18:15 01/04/17 18:14 Pantoprazole (Protonix) 40 mg BID ORAL 12/06/16 14:15 01/05/17 14:14 12/07/16 09:08 Polyethylene Glycol (Miralax) 17 gm DAILYPRN PRN ORAL Constipation 12/05/16 18:15 01/04/17 18:14 Promethazine HCl/ Codeine (Phenergan with Codeine) 5 ml Q4H PRN ORAL For Cough 12/06/16 14:00 01/05/17 13:59 Temazepam (Restoril) 15 mg HSPRN PRN ORAL Insomnia 12/05/16 21:00 12/12/16 20:59 ENOC BUSCH Dec 07, 2016 11:44
--- NOTE | 2016-12-07 12:14 | Wound Care Consultation ---
Wound Assessment Wound Assessment #1: Wound Number: 1 Wound Present on Admission: No New Wound: Yes Status Change of Wound: No Wound Location Body Site Modif: mid Wound Location Body Site: sacral Wound Type: pressure ulcer Doug Test: Does not Doug Pressure Ulcer Stage: II Wound Thickness: Partial Thickness Wound Length: 0.8 Wound Width: 0.5 Wound Depth: less than 0.1 Percent of Wound Blunt/Red: 100 Wound Drainage Description: Serosanguineous Wound Drainage Amount: Scant Wound Drainage Odor: None/Absent Tissue Surrounding Wound: Erythemic Wound General Appearance: Reddened Wound Assessment #2: Wound Number: 2 Wound Present on Admission: Yes New Wound: No Status Change of Wound: No Wound Location Body Site Modif: left Wound Location Body Site: ear Wound Type: scab Doug Test: Does not Duog Wound Thickness: Full Thickness Wound Length: 0.5 Wound Width: 0.2 Wound Depth: utd Percent of Wound Bed Yellow/Wh: 100 - dry Wound Drainage Amount: None Wound Drainage Odor: None/Absent Tissue Surrounding Wound: Intact Wound General Appearance: Asymptomatic Wound Assessment #3: Wound Number: 3 Wound Present on Admission: Yes New Wound: No Status Change of Wound: No Wound Location Body Site Modif: right Wound Location Body Site: ear Wound Type: scab Doug Test: Does not Doug Wound Thickness: Full Thickness Wound Length: 0.3 Wound Width: 0.3 Wound Depth: utd Percent of Wound Bed Yellow/Wh: 100 - dry Wound Drainage Amount: None Wound Drainage Odor: None/Absent Tissue Surrounding Wound: Intact Wound General Appearance: Asymptomatic Wound Assessment #4: Wound Number: 4 Wound Present on Admission: No New Wound: Yes Status Change of Wound: No Wound Location Body Site Modif: left, right, mid, upper Wound Location Body Site: back Wound Type: rash Doug Test: Does not Doug Percent of Wound Blunt/Red: 100 Wound Drainage Amount: None Wound Drainage Odor: None/Absent Tissue Surrounding Wound: Intact Wound General Appearance: Reddened Wound Comment #1 Sacral stage II pressure ulcer #2 Left ear dry scab #3 Right ear dry scab #4 Back area with rashes Recommendation -Keep clean and dry -Turn and reposition -Low air loss [facility] mattress -Local wound care per protocol -Optimize nutrition -Offload both heels -Heel protector on both heels -Assess and f/u accordingly for any changes MIKE FOOTE RN Dec 07, 2016 12:14
[2016-12-07] MEDS: Levofloxacin 250mg/D5W 50ml IVPB SCH (14:24)
[2016-12-07] MEDS ORDERED: Tubing IV Secondary IV ONE (14:53)
[2016-12-07] MEDS ORDERED: NS 275ml ONE (14:53)
--- NOTE | 2016-12-07 16:04 | General Progress Note ---
Assessment/Plan Status: stable Status Narrative Cr alex 2.8 Assessment/Plan Renal failure , likely chronic , possible superimposed acute Anemia, likely chronic HTN DM presents with SOB , whezzing- Atrial fibrillation - h/o Prostate Ca and surgery- incontinent h/o Back surgery Plan: 2D Echo- pending Kidney LISA- negative UA- optimize cardiac and pulmonary status- Anemia cordova- Avoid Nephrotoxics- keep BP and BS in check Subjective ROS Limited/Unobtainable: No Constitutional: Reports: malaise Allergies: Coded Allergies: No Known Allergies (Unverified , 12/05/16) Objective Last 24 Hour Vital Signs Date Time Temp Pulse Resp B/P (MAP) Pulse Ox O2 Delivery O2 Flow Rate FiO2 12/07/16 12:00 98.1 67 18 140/60 93 Nasal Cannula 3.0 12/07/16 12:00 67 12/07/16 11:51 64 117/59 12/07/16 08:00 97.5 64 16 117/59 95 Nasal Cannula 3.0 12/07/16 08:00 104 12/07/16 07:42 Nasal Cannula 2.0 12/07/16 07:41 94 Nasal Cannula 2.0 12/07/16 07:40 80 20 Nasal Cannula 2.0 12/07/16 06:39 86 121/64 12/07/16 04:23 112 12/07/16 04:11 98.1 95 18 140/66 94 Nasal Cannula 2.0 12/07/16 00:21 110 140/79 12/07/16 00:06 102 12/07/16 00:00 98.0 110 20 140/79 94 Nasal Cannula 3.0 12/06/16 20:35 85 138/57 12/06/16 20:00 98.2 76 18 138/57 93 Nasal Cannula 2.0 12/06/16 19:53 79 12/06/16 19:30 94 Nasal Cannula 2.0 12/06/16 19:30 120 20 Nasal Cannula 2.0 12/06/16 19:30 Nasal Cannula 2.0 28 12/06/16 17:55 81 125/66 Laboratory Tests 12/07/16 08:00: White Blood Count 10.5, Red Blood Count 3.39L, Hemoglobin 10.9L, Hematocrit 32.0L, Mean Corpuscular Volume 94, Mean Corpuscular Hemoglobin 32.0H, Mean Corpuscular Hemoglobin Concent 33.9, Red Cell Distribution Width 11.2L, Platelet Count 487H, Mean Platelet Volume 6.6, Neutrophils (%) (Auto) , Lymphocytes (%) (Auto) , Monocytes (%) (Auto) , Eosinophils (%) (Auto) , Basophils (%) (Auto) , Differential Total Cells Counted 100, Neutrophils % ( Manual) 78H, Lymphocytes % (Manual) 14L, Monocytes % (Manual) 5, Eosinophils % ( Manual) 3, Basophils % (Manual) 0, Band Neutrophils 0, Platelet Estimate Adequate, Platelet Morphology , Giant Platelets 1+, Hypochromasia 1+, Erythrocyte Sedimentation Rate 115H, Reticulocyte Count 1.1, Prothrombin Time 11.3, Prothromb Time International Ratio 1.1, Activated Partial Thromboplast Time 30, Sodium Level 138, Potassium Level 3.8, Chloride Level 99, Carbon Dioxide Level 24, Anion Gap 15, Blood Urea Nitrogen 41H, Creatinine 2.8H, Estimat Glomerular Filtration Rate , Glucose Level 304#H, Hemoglobin A1c 6.9H, Uric Acid 11.6H, Calcium Level 8.8, Phosphorus Level 3.5, Magnesium Level 1.6L, Iron Level 31L, Total Iron Binding Capacity 161L, Percent Iron Saturation 19, Unsaturated Iron Binding 130, Ferritin 317H, Total Bilirubin 0.5, Gamma Glutamyl Transpeptidase 26, Aspartate Amino Transf (AST/SGOT) 31, Alanine Aminotransferase (ALT/SGPT) 26, Alkaline Phosphatase 116, Lactate Dehydrogenase 254H, Troponin I < 0.30, C-Reactive Protein, Quantitative 8.8H, Pro-B-Type Natriuretic Peptide 4269H, Total Protein 6.3L, Albumin 3.1L, Globulin 3.2, Albumin/Globulin Ratio 0.9L, Triglycerides Level 122, Cholesterol Level 96, LDL Cholesterol 52L, HDL Cholesterol 20, Cholesterol/HDL Ratio 4.8H, Carcinoembryonic Antigen 1.8, Vitamin B12 Level 691, Folate [Pending], Thyroid Stimulating Hormone (TSH) 1.980 Height (Feet): 6 Height (Inches): 0.00 Weight (Pounds): 173 General Appearance: other - not short of breath Cardiovascular: normal rate Respiratory/Chest: decreased breath sounds Abdomen: soft MILKA VALDEZ Dec 07, 2016 16:04
[2016-12-07] MEDS: Allopurinol 100mg Tab ORAL SCH (17:06)
--- NOTE | 2016-12-07 18:14 | Cardiology Progress Note ---
Assessment/Plan Assessment/Plan 1. Probable underlying pneumonia. 2. Episode of atrial fibrillation paroxysmal 3. Diabetes mellitus. 4. Hypertension. 5. Chronic renal insufficiency. 6. Anemia. 7. History of bacteremia. 8. Prostate cancer status post resection. 9. History of urinary incontinence. on eliquis went bck adn forth with afib flutter over nite on several occasion needed iv dilt i have started him on amiod for nwo keep on eliquis hold duonebs as increases tachy keep on tele Atrovent hhn tele reviewed d/w rn Subjective Cardiovascular: Denies: chest pain, lightheadedness, palpitations Respiratory: Reports: cough, SOB with excertion, sputum Gastrointestinal/Abdominal: Denies: black stools Genitourinary: Denies: burning Objective Last 24 Hour Vital Signs Date Time Temp Pulse Resp B/P (MAP) Pulse Ox O2 Delivery O2 Flow Rate FiO2 12/07/16 17:05 73 106/60 12/07/16 16:00 97.9 73 17 106/60 96 Nasal Cannula 3.0 12/07/16 12:00 98.1 67 18 140/60 93 Nasal Cannula 3.0 12/07/16 12:00 67 12/07/16 11:51 64 117/59 12/07/16 08:00 97.5 64 16 117/59 95 Nasal Cannula 3.0 12/07/16 08:00 104 12/07/16 07:42 Nasal Cannula 2.0 28 12/07/16 07:41 94 Nasal Cannula 2.0 28 12/07/16 07:40 80 20 Nasal Cannula 2.0 28 12/07/16 06:39 86 121/64 12/07/16 04:23 112 12/07/16 04:11 98.1 95 18 140/66 94 Nasal Cannula 2.0 12/07/16 00:21 110 140/79 12/07/16 00:06 102 12/07/16 00:00 98.0 110 20 140/79 94 Nasal Cannula 3.0 12/06/16 20:35 85 138/57 12/06/16 20:00 98.2 76 18 138/57 93 Nasal Cannula 2.0 12/06/16 19:53 79 12/06/16 19:30 94 Nasal Cannula 2.0 28 12/06/16 19:30 120 20 Nasal Cannula 2.0 28 12/06/16 19:30 Nasal Cannula 2.0 28 General Appearance: no apparent distress, alert Neck: no JVD Cardiovascular: normal rate Respiratory/Chest: crackles/rales, rhonchi - bilaterally Abdomen: normal bowel sounds, non tender, soft Extremities: no swelling Laboratory Tests Test 12/07/16 08:00 White Blood Count 10.5 K/UL (4.8-10.8) Red Blood Count 3.39 M/UL (4.70-6.10) L Hemoglobin 10.9 G/DL (14.2-18.0) L Hematocrit 32.0 % (42.0-52.0) L Mean Corpuscular Volume 94 FL (80-99) Mean Corpuscular Hemoglobin 32.0 PG (27.0-31.0) H Mean Corpuscular Hemoglobin Concent 33.9 G/DL (32.0-36.0) Red Cell Distribution Width 11.2 % (11.6-14.8) L Platelet Count 487 K/UL (150-450) H Mean Platelet Volume 6.6 FL (6.5-10.1) Neutrophils (%) (Auto) % (45.0-75.0) Lymphocytes (%) (Auto) % (20.0-45.0) Monocytes (%) (Auto) % (1.0-10.0) Eosinophils (%) (Auto) % (0.0-3.0) Basophils (%) (Auto) % (0.0-2.0) Differential Total Cells Counted 100 Neutrophils % (Manual) 78 % (45-75) H Lymphocytes % (Manual) 14 % (20-45) L Monocytes % (Manual) 5 % (1-10) Eosinophils % (Manual) 3 % (0-3) Basophils % (Manual) 0 % (0-2) Band Neutrophils 0 % (0-8) Platelet Estimate Adequate Platelet Morphology Giant Platelets 1+ Hypochromasia 1+ Erythrocyte Sedimentation Rate 115 MM/HR (0-30) H Reticulocyte Count 1.1 % (0.0-2.0) Prothrombin Time 11.3 SEC (9.30-11.50) Prothromb Time International Ratio 1.1 (0.9-1.1) Activated Partial Thromboplast Time 30 SEC (23-33) Sodium Level 138 mEQ/L (135-145) Potassium Level 3.8 mEQ/L (3.4-4.9) Chloride Level 99 mEQ/L (98-107) Carbon Dioxide Level 24 mEQ/L (20-30) Anion Gap 15 (5-15) Blood Urea Nitrogen 41 mg/dL (7-23) H Creatinine 2.8 mg/dL (0.7-1.2) H Estimat Glomerular Filtration Rate mL/min (>60) Glucose Level 304 mg/dL (74-106) #H Hemoglobin A1c 6.9 % (< 6.0) H Uric Acid 11.6 mg/dL (3.0-7.5) H Calcium Level 8.8 mg/dL (8.6-10.2) Phosphorus Level 3.5 mg/dL (2.5-4.8) Magnesium Level 1.6 mg/dL (1.7-2.5) L Iron Level 31 ug/dL (59-158) L Total Iron Binding Capacity 161 ug/dL (250-400) L Percent Iron Saturation 19 % (15-50) Unsaturated Iron Binding 130 ug/dL (112-346) Ferritin 317 ng/mL (10-230) H Total Bilirubin 0.5 mg/dL (0.0-1.2) Gamma Glutamyl Transpeptidase 26 U/L (8-61) Aspartate Amino Transf (AST/SGOT) 31 U/L (5-40) Alanine Aminotransferase (ALT/SGPT) 26 U/L (3-41) Alkaline Phosphatase 116 U/L (40-129) Lactate Dehydrogenase 254 U/L (135-230) H Troponin I < 0.30 ng/mL (<=0.30) C-Reactive Protein, Quantitative 8.8 mg/dL (< 0.5) H Pro-B-Type Natriuretic Peptide 4269 pg/mL (0-450) H Total Protein 6.3 g/dL (6.6-8.7) L Albumin 3.1 g/dL (3.5-5.2) L Globulin 3.2 g/dL Albumin/Globulin Ratio 0.9 (1.0-2.7) L Triglycerides Level 122 mg/dL (< 150) Cholesterol Level 96 mg/dL (< 200) LDL Cholesterol 52 mg/dL (60-99) L HDL Cholesterol 20 mg/dL (> 60) Cholesterol/HDL Ratio 4.8 (3.3-4.4) H Carcinoembryonic Antigen 1.8 ng/mL Vitamin B12 Level 691 pg/mL (211-946) Folate Pending Thyroid Stimulating Hormone (TSH) 1.980 uIU/mL (0.300-4.500) Microbiology Date/Time Source Procedure Growth Status 12/05/16 21:45 Blood Blood Culture - Preliminary NO GROWTH AFTER 24 HOURS Resulted 12/05/16 21:30 Blood Blood Culture - Preliminary NO GROWTH AFTER 24 HOURS Resulted ARACELI PAULSON Dec 07, 2016 18:14
[2016-12-07] MEDS: Ipratropium 0.02% Inh Soln 2.5ml UD HHN SCH (19:48)
[2016-12-08 03:57] VITALS: BP 128/54
[2016-12-08] MEDS: Amiodarone 200mg tab ORAL SCH ×2 (05:39→17:39)
[2016-12-08] MEDS: NovoLOG Insulin Flexpen SUBQ SCH ×4 (06:28→21:38)
[2016-12-08 07:41] LABS: BASOPHILS % (AUTO) 0.7 % (0.0-2.0); EOSINOPHILS % (AUTO) 3.7 % (0.0-3.0); LYMPHOCYTES % (AUTO) 13.9 % (20.0-45.0); MEAN CORPUSCULAR HEMOGLOBIN 31.9 PG (27.0-31.0); MEAN CORPUSCULAR HGB CONC 34.2 G/DL (32.0-36.0); MEAN CORPUSCULAR VOLUME 93 FL (80-99); MEAN PLATELET VOLUME 6.5 FL (6.5-10.1); MONOCYTES % (AUTO) 7.4 % (1.0-10.0); NEUTROPHILS % (AUTO) 74.3 % (45.0-75.0); PLATELET COUNT 520 K/UL (150-450); RED BLOOD COUNT 3.34 M/UL (4.70-6.10); WHITE BLOOD COUNT 10.3 K/UL (4.8-10.8)
[2016-12-08] MEDS: Ipratropium 0.02% Inh Soln 2.5ml UD HHN SCH ×3 (07:42→19:12)
[2016-12-08 08:00] VITALS: BP 123/48
[2016-12-08 08:06] LABS: PHOSPHORUS 4.3 mg/dL (2.5-4.8); URIC ACID 11.6 mg/dL (3.0-7.5)
[2016-12-08 08:13] LABS: ALANINE AMINOTRANSFERASE 22 U/L (3-41); ALBUMIN/GLOBULIN RATIO 0.8 (1.0-2.7); ANION GAP 15 (5-15); ASPARTATE AMINO TRANSFERASE 25 U/L (5-40); CALCIUM 8.8 mg/dL (8.6-10.2); CARBON DIOXIDE 24 mEQ/L (20-30); CHLORIDE 101 mEQ/L (98-107); HEMOLYSIS 3; SODIUM 140 mEQ/L (135-145); TOTAL PROTEIN 6.4 g/dL (6.6-8.7)
--- NOTE | 2016-12-08 09:41 | Pulmonology Progress Note ---
Assessment/Plan Assessment/Plan ASSESSMENT SOB possible CAP A fib ( new onset) with RVR ( off and on) acute diastolic CHF ARF on CKD HTN DM anemia of chronic disease prostate Ca , s/p surgery sacral decub st 2 , POA PLAN OF CARE tele O2 HHN prn s/p diuresis , off Lasix due to worsening creatinine pro BNP trending down fup CXR with improvement in congestive changes cardio follows rate control with Amiodarone and Cardizem -controlled a/coagulation with Eliquis ECHO with pEF 55% and RVSP of 23, mild LVH Venous Duplex BLE negative BP management with Cardizem and optimize as needed empiric abx, blood cx preliminary negative ID follows BS management with SS of insulin, [id number] at goal renal failure likely chronic with some element of acute, nephro follows creat worse, off diuresis renal US negative, no hydro, normal echogenicity bilaterally GI prophylaxis monitor HH, stays at baseline, CEA WNL wound care as per wound nurse recommendations case discussed and evaluated by supervising physician Subjective Allergies: Coded Allergies: No Known Allergies (Unverified , 12/05/16) Subjective denies chest pain, admits to intermittent SOB, dry cough occasional palpitations, no dizziness Objective Last 24 Hour Vital Signs Date Time Temp Pulse Resp B/P (MAP) Pulse Ox O2 Delivery O2 Flow Rate FiO2 12/08/16 08:23 73 20 93 Nasal Cannula 3.0 12/08/16 08:19 Nasal Cannula 4.0 12/08/16 08:19 92 Nasal Cannula 4.0 12/08/16 08:18 75 20 92 Nasal Cannula 4.0 12/08/16 06:32 74 127/48 12/08/16 03:57 98.2 76 20 128/54 97 Room Air 12/08/16 03:47 66 12/08/16 00:01 85 125/56 12/08/16 00:00 67 12/07/16 23:56 98.5 84 21 125/56 93 Nasal Cannula 2.0 12/07/16 20:35 71 12/07/16 20:03 97.9 72 20 124/57 98 Room Air 12/07/16 20:02 74 18 95 Nasal Cannula 3.0 32 12/07/16 19:49 72 18 93 Nasal Cannula 3.0 32 12/07/16 19:48 Nasal Cannula 3.0 32 12/07/16 19:48 93 Nasal Cannula 3.0 32 12/07/16 17:05 73 106/60 12/07/16 16:00 80 12/07/16 16:00 97.9 73 17 106/60 96 Nasal Cannula 3.0 12/07/16 12:00 98.1 67 18 140/60 93 Nasal Cannula 3.0 12/07/16 12:00 67 12/07/16 11:51 64 117/59 General Appearance: no acute distress, other - awake, alert, responsive HEENT: normocephalic, atraumatic, anicteric, mucous membranes moist Respiratory/Chest: no respiratory distress, no accessory muscle use, rhonchi - few scattered , other Cardiovascular: normal rate, regular rhythm - SR with off and on A fib with RVR occasionally ( 130) , no JVD Abdomen: soft, non tender, non distended Genitourinary: normal external genitalia Extremities: no edema, pedal pulses normal Neurologic/Psychiatric: abnormal gait, alert, oriented x 3, responsive Musculoskeletal: atrophy Microbiology Date/Time Source Procedure Growth Status 12/05/16 21:45 Blood Blood Culture - Preliminary NO GROWTH AFTER 48 HOURS Resulted 12/05/16 21:30 Blood Blood Culture - Preliminary NO GROWTH AFTER 48 HOURS Resulted Laboratory Tests 12/08/16 05:20: White Blood Count 10.3, Red Blood Count 3.34L, Hemoglobin 10.7L, Hematocrit 31.2L, Mean Corpuscular Volume 93, Mean Corpuscular Hemoglobin 31.9H, Mean Corpuscular Hemoglobin Concent 34.2, Red Cell Distribution Width 11.0L, Platelet Count 520H, Mean Platelet Volume 6.5, Neutrophils (%) (Auto) 74.3, Lymphocytes (%) (Auto) 13.9L, Monocytes (%) (Auto) 7.4, Eosinophils (%) (Auto) 3.7H, Basophils (%) (Auto) 0.7, Sodium Level 140, Potassium Level 4.0, Chloride Level 101, Carbon Dioxide Level 24, Anion Gap 15, Blood Urea Nitrogen 43H, Creatinine 3.0H, Estimat Glomerular Filtration Rate , Glucose Level 256H, Uric Acid 11.6H, Calcium Level 8.8, Phosphorus Level 4.3, Magnesium Level 2.2, Total Bilirubin 0.4, Aspartate Amino Transf (AST/SGOT) 25, Alanine Aminotransferase ( ALT/SGPT) 22, Alkaline Phosphatase 122, Pro-B-Type Natriuretic Peptide 1865H, Total Protein 6.4L, Albumin 3.0L, Globulin 3.4, Albumin/Globulin Ratio 0.8L Current Medications Medications (Trade) Dose Ordered Sig/Nitin Route PRN Reason Start Time Stop Time Status Last Admin Dose Admin Acetaminophen (Tylenol) 650 mg Q4H PRN ORAL T>100.5 12/05/16 18:15 01/04/17 18:14 Allopurinol (Zyloprim) 100 mg DAILY ORAL 12/07/16 16:30 01/06/17 16:29 12/07/16 17:06 Amiodarone HCl (Cordarone) 200 mg Q8HR ORAL 12/06/16 21:00 01/05/17 20:59 12/08/16 05:39 Apixaban (Eliquis) 2.5 mg BID ORAL 12/06/16 16:00 01/05/17 15:59 12/07/16 17:12 Cetylpyridinium Chloride (Cepacol) 1 lozenge Q6HR PRN DUNG SORE THROAT 12/05/16 22:15 01/04/17 22:14 12/05/16 22:23 Clotrimazole (Lotrimin) 1 applic EVERY 12 HOURS TOPIC 12/07/16 21:00 01/06/17 20:59 12/07/16 21:34 Dextrose (Dextrose 50%) STAT PRN IV Hypoglycemia 12/05/16 21:45 01/04/17 21:44 Diltiazem HCl (Cardizem) 30 mg EVERY 6 HOURS ORAL 12/06/16 18:00 01/05/17 17:59 12/08/16 06:32 Insulin Aspart (NovoLOG) BEFORE MEALS AND HS SUBQ 12/05/16 23:00 01/04/17 22:59 12/08/16 06:28 Ipratropium [place] (Atrovent) 500 mcg TIDRT HHN 12/07/16 19:00 12/12/16 18:59 12/08/16 07:42 Levofloxacin 50 ml @ 50 mls/hr Q24H IVPB 12/07/16 15:00 12/14/16 14:59 12/07/16 14:24 Ondansetron HCl (Zofran) 4 mg Q6H PRN IVP Nausea & Vomiting 12/05/16 18:15 01/04/17 18:14 Pantoprazole (Protonix) 40 mg BID ORAL 12/06/16 14:15 01/05/17 14:14 12/07/16 17:12 Polyethylene Glycol (Miralax) 17 gm DAILYPRN PRN ORAL Constipation 12/05/16 18:15 01/04/17 18:14 Promethazine HCl/ Codeine (Phenergan with Codeine) 5 ml Q4H PRN ORAL For Cough 12/06/16 14:00 01/05/17 13:59 Temazepam (Restoril) 15 mg HSPRN PRN ORAL Insomnia 12/05/16 21:00 12/12/16 20:59 Aristides ([facility])Meenakshi NP Dec 08, 2016 09:41
[2016-12-08] MEDS: Allopurinol 100mg Tab ORAL SCH (09:43)
[2016-12-08] MEDS: Eliquis 2.5mg tablet ORAL SCH ×2 (09:43→17:39)
[2016-12-08 12:00] VITALS: BP 116/53
--- NOTE | 2016-12-08 12:26 | Diagnostic Imaging Report ---
Indication: DYSPNEA Technique: One view of the chest Comparison: 12/06/2016 Findings: Left perihilar atelectasis is again demonstrated. Right apical hazy infiltrate is again demonstrated. The remainder of the lungs and pleural spaces are clear. The heart size is normal. Findings are overall unchanged Impression: Unchanged, over 2 days, findings as above.
--- NOTE | 2016-12-08 12:48 | Cardiology Report ---
APPROVED REPORT EKG Measurement Heart [id number] NM [id number] [id number] Sinus rhythm with 1st degree AV block Right bundle branch block Left ventricular hypertrophy with repolarization abnormality Abnormal ECG
--- NOTE | 2016-12-08 12:54 | General Progress Note ---
Assessment/Plan Status: stable - from cardiac and pulmonary stand Status Narrative Cr up to 3 Assessment/Plan Renal failure , likely chronic , possible superimposed acute Anemia, likely chronic HTN DM presents with SOB , whezzing- Atrial fibrillation - h/o Prostate Ca and surgery- incontinent h/o Back surgery Plan: 2D Echo- pending Kidney LISA- negative UA- optimize cardiac and pulmonary status- Anemia cordova- Avoid Nephrotoxics- keep BP and BS in check Subjective ROS Limited/Unobtainable: No Constitutional: Reports: malaise Allergies: Coded Allergies: No Known Allergies (Unverified , 12/05/16) Objective Last 24 Hour Vital Signs Date Time Temp Pulse Resp B/P (MAP) Pulse Ox O2 Delivery O2 Flow Rate FiO2 12/08/16 12:00 73 123/48 12/08/16 08:23 73 20 93 Nasal Cannula 3.0 12/08/16 08:19 Nasal Cannula 4.0 12/08/16 08:19 92 Nasal Cannula 4.0 12/08/16 08:18 75 20 92 Nasal Cannula 4.0 12/08/16 08:00 98.2 71 19 123/48 93 Nasal Cannula 4.0 12/08/16 06:32 74 127/48 12/08/16 03:57 98.2 76 20 128/54 97 Room Air 12/08/16 03:47 66 12/08/16 00:01 85 125/56 12/08/16 00:00 67 12/07/16 23:56 98.5 84 21 125/56 93 Nasal Cannula 2.0 12/07/16 20:35 71 12/07/16 20:03 97.9 72 20 124/57 98 Room Air 12/07/16 20:02 74 18 95 Nasal Cannula 3.0 32 12/07/16 19:49 72 18 93 Nasal Cannula 3.0 32 12/07/16 19:48 Nasal Cannula 3.0 32 12/07/16 19:48 93 Nasal Cannula 3.0 32 12/07/16 17:05 73 106/60 12/07/16 16:00 80 12/07/16 16:00 97.9 73 17 106/60 96 Nasal Cannula 3.0 Intake and Output 12/08/16 12/09/16 19:00 07:00 Intake Total 260 ml Balance 260 ml Intake Oral 260 ml Laboratory Tests 12/08/16 05:20: White Blood Count 10.3, Red Blood Count 3.34L, Hemoglobin 10.7L, Hematocrit 31.2L, Mean Corpuscular Volume 93, Mean Corpuscular Hemoglobin 31.9H, Mean Corpuscular Hemoglobin Concent 34.2, Red Cell Distribution Width 11.0L, Platelet Count 520H, Mean Platelet Volume 6.5, Neutrophils (%) (Auto) 74.3, Lymphocytes (%) (Auto) 13.9L, Monocytes (%) (Auto) 7.4, Eosinophils (%) (Auto) 3.7H, Basophils (%) (Auto) 0.7, Sodium Level 140, Potassium Level 4.0, Chloride Level 101, Carbon Dioxide Level 24, Anion Gap 15, Blood Urea Nitrogen 43H, Creatinine 3.0H, Estimat Glomerular Filtration Rate , Glucose Level 256H, Uric Acid 11.6H, Calcium Level 8.8, Phosphorus Level 4.3, Magnesium Level 2.2, Total Bilirubin 0.4, Aspartate Amino Transf (AST/SGOT) 25, Alanine Aminotransferase ( ALT/SGPT) 22, Alkaline Phosphatase 122, Pro-B-Type Natriuretic Peptide 1865H, Total Protein 6.4L, Albumin 3.0L, Globulin 3.4, Albumin/Globulin Ratio 0.8L Height (Feet): 6 Height (Inches): 0.00 Weight (Pounds): 193 General Appearance: no apparent distress Cardiovascular: normal rate Respiratory/Chest: decreased breath sounds Abdomen: soft Objective no signs of CHF MILKA VALDEZ Dec 08, 2016 12:54
--- NOTE | 2016-12-08 14:28 | Cardiology Progress Note ---
Assessment/Plan Assessment/Plan 1. Probable underlying pneumonia. 2. Episode of atrial fibrillation paroxysmal 3. Diabetes mellitus. 4. Hypertension. 5. Chronic renal insufficiency. 6. Anemia. 7. History of bacteremia. 8. Prostate cancer status post resection. 9. History of urinary incontinence. on eliquis bid went bck adn forth with afib flutter now remain in sinus i have started him on amiod for nwo hold duonebs as increases tachy keep on tele Atrovent hhn tele reviewed i have asked pt to return to se me in 2 week i have givenhim instruction about amio adn eliquis and need to decrease amiod to once a day after aboput 2 weeks and possible dc in near future he has agreed to fu with me in office Subjective Cardiovascular: Denies: chest pain, irregular heart rate, lightheadedness Respiratory: Reports: SOB with excertion, Denies: shortness of breath Gastrointestinal/Abdominal: Denies: abdominal pain Genitourinary: Denies: burning Objective Last 24 Hour Vital Signs Date Time Temp Pulse Resp B/P (MAP) Pulse Ox O2 Delivery O2 Flow Rate FiO2 12/08/16 13:17 87 18 92 Nasal Cannula 3.0 12/08/16 13:07 88 18 91 Nasal Cannula 3.0 12/08/16 12:00 76 12/08/16 12:00 98.1 75 21 116/53 98 Nasal Cannula 4.0 12/08/16 12:00 73 123/48 12/08/16 08:23 73 20 93 Nasal Cannula 3.0 12/08/16 08:19 Nasal Cannula 4.0 12/08/16 08:19 92 Nasal Cannula 4.0 12/08/16 08:18 75 20 92 Nasal Cannula 4.0 12/08/16 08:00 77 12/08/16 08:00 98.2 71 19 123/48 93 Nasal Cannula 4.0 12/08/16 06:32 74 127/48 12/08/16 03:57 98.2 76 20 128/54 97 Room Air 12/08/16 03:47 66 12/08/16 00:01 85 125/56 12/08/16 00:00 67 12/07/16 23:56 98.5 84 21 125/56 93 Nasal Cannula 2.0 12/07/16 20:35 71 12/07/16 20:03 97.9 72 20 124/57 98 Room Air 12/07/16 20:02 74 18 95 Nasal Cannula 3.0 32 12/07/16 19:49 72 18 93 Nasal Cannula 3.0 32 12/07/16 19:48 Nasal Cannula 3.0 32 12/07/16 19:48 93 Nasal Cannula 3.0 32 12/07/16 17:05 73 106/60 12/07/16 16:00 80 12/07/16 16:00 97.9 73 17 106/60 96 Nasal Cannula 3.0 General Appearance: alert Neck: supple Cardiovascular: normal rate, regular rhythm Respiratory/Chest: lungs clear Abdomen: normal bowel sounds, non tender, soft Extremities: no swelling Intake and Output 12/08/16 12/09/16 19:00 07:00 Intake Total 480 ml Output Total 300 ml Balance 180 ml Intake Oral 480 ml Output Urine Total 300 ml Laboratory Tests Test 12/08/16 05:20 White Blood Count 10.3 K/UL (4.8-10.8) Red Blood Count 3.34 M/UL (4.70-6.10) L Hemoglobin 10.7 G/DL (14.2-18.0) L Hematocrit 31.2 % (42.0-52.0) L Mean Corpuscular Volume 93 FL (80-99) Mean Corpuscular Hemoglobin 31.9 PG (27.0-31.0) H Mean Corpuscular Hemoglobin Concent 34.2 G/DL (32.0-36.0) Red Cell Distribution Width 11.0 % (11.6-14.8) L Platelet Count 520 K/UL (150-450) H Mean Platelet Volume 6.5 FL (6.5-10.1) Neutrophils (%) (Auto) 74.3 % (45.0-75.0) Lymphocytes (%) (Auto) 13.9 % (20.0-45.0) L Monocytes (%) (Auto) 7.4 % (1.0-10.0) Eosinophils (%) (Auto) 3.7 % (0.0-3.0) H Basophils (%) (Auto) 0.7 % (0.0-2.0) Sodium Level 140 mEQ/L (135-145) Potassium Level 4.0 mEQ/L (3.4-4.9) Chloride Level 101 mEQ/L (98-107) Carbon Dioxide Level 24 mEQ/L (20-30) Anion Gap 15 (5-15) Blood Urea Nitrogen 43 mg/dL (7-23) H Creatinine 3.0 mg/dL (0.7-1.2) H Estimat Glomerular Filtration Rate mL/min (>60) Glucose Level 256 mg/dL (74-106) H Uric Acid 11.6 mg/dL (3.0-7.5) H Calcium Level 8.8 mg/dL (8.6-10.2) Phosphorus Level 4.3 mg/dL (2.5-4.8) Magnesium Level 2.2 mg/dL (1.7-2.5) Total Bilirubin 0.4 mg/dL (0.0-1.2) Aspartate Amino Transf (AST/SGOT) 25 U/L (5-40) Alanine Aminotransferase (ALT/SGPT) 22 U/L (3-41) Alkaline Phosphatase 122 U/L (40-129) Pro-B-Type Natriuretic Peptide 1865 pg/mL (0-450) H Total Protein 6.4 g/dL (6.6-8.7) L Albumin 3.0 g/dL (3.5-5.2) L Globulin 3.4 g/dL Albumin/Globulin Ratio 0.8 (1.0-2.7) L Microbiology Date/Time Source Procedure Growth Status 12/05/16 21:45 Blood Blood Culture - Preliminary NO GROWTH AFTER 48 HOURS Resulted 12/05/16 21:30 Blood Blood Culture - Preliminary NO GROWTH AFTER 48 HOURS Resulted ARACELI PAULSON Dec 08, 2016 14:28
[2016-12-08] MEDS: Levofloxacin 250mg/D5W 50ml IVPB SCH (15:16)
--- NOTE | 2016-12-08 15:31 | Infectious Diseases Prog Note ---
Assessment/Plan Assessment/Plan ASSESSMENT: The patient is an 86-year-old male with: Possible healthcare-associated pneumonia - cough nonproductive - CXR 12/08: Left perihilar atelectasis is again demonstrated. Right apical hazy infiltrate is again demonstrated. The remainder of the lungs and pleural spaces are clear. Shortness of breath due to the above versus congestive heart failure. Stage II sacral decubitus POA, not grossly infected Leukocytosis - resolved, afebrile. New onset A-fib with RVR Acute diastolic CHF Renal insufficiency ?acute vs chronic - worse Thrombocytosis History of prostate cancer. DM2 - HbA1c 6.9% NKDA Full Code PLAN: We will continue the patient on Levaquin day #4/5. f/u final cultures Monitor CBC. Monitor BMP. Monitor chest x-ray. Subjective Allergies: Coded Allergies: No Known Allergies (Unverified , 12/05/16) Subjective remains afebrile no sig cough Objective Vital Signs Last 24 Hour Vital Signs Date Time Temp Pulse Resp B/P (MAP) Pulse Ox O2 Delivery O2 Flow Rate FiO2 12/08/16 13:17 87 18 92 Nasal Cannula 3.0 12/08/16 13:07 88 18 91 Nasal Cannula 3.0 12/08/16 12:00 76 12/08/16 12:00 98.1 75 21 116/53 98 Nasal Cannula 4.0 12/08/16 12:00 73 123/48 12/08/16 08:23 73 20 93 Nasal Cannula 3.0 12/08/16 08:19 Nasal Cannula 4.0 12/08/16 08:19 92 Nasal Cannula 4.0 12/08/16 08:18 75 20 92 Nasal Cannula 4.0 12/08/16 08:00 77 12/08/16 08:00 98.2 71 19 123/48 93 Nasal Cannula 4.0 12/08/16 06:32 74 127/48 12/08/16 03:57 98.2 76 20 128/54 97 Room Air 12/08/16 03:47 66 12/08/16 00:01 85 125/56 12/08/16 00:00 67 12/07/16 23:56 98.5 84 21 125/56 93 Nasal Cannula 2.0 12/07/16 20:35 71 12/07/16 20:03 97.9 72 20 124/57 98 Room Air 12/07/16 20:02 74 18 95 Nasal Cannula 3.0 32 12/07/16 19:49 72 18 93 Nasal Cannula 3.0 32 12/07/16 19:48 Nasal Cannula 3.0 32 12/07/16 19:48 93 Nasal Cannula 3.0 32 12/07/16 17:05 73 106/60 12/07/16 16:00 80 12/07/16 16:00 97.9 73 17 106/60 96 Nasal Cannula 3.0 Height (Feet): 6 Height (Inches): 0.00 Weight (Pounds): 193 General Appearance: no acute distress Respiratory/Chest: no respiratory distress Cardiovascular: normal rate, regular rhythm Abdomen: normal bowel sounds, soft, non tender, non distended Microbiology Date/Time Source Procedure Growth Status 12/05/16 21:45 Blood Blood Culture - Preliminary NO GROWTH AFTER 48 HOURS Resulted 12/05/16 21:30 Blood Blood Culture - Preliminary NO GROWTH AFTER 48 HOURS Resulted Laboratory Tests Test 12/08/16 05:20 White Blood Count 10.3 K/UL (4.8-10.8) Red Blood Count 3.34 M/UL (4.70-6.10) L Hemoglobin 10.7 G/DL (14.2-18.0) L Hematocrit 31.2 % (42.0-52.0) L Mean Corpuscular Volume 93 FL (80-99) Mean Corpuscular Hemoglobin 31.9 PG (27.0-31.0) H Mean Corpuscular Hemoglobin Concent 34.2 G/DL (32.0-36.0) Red Cell Distribution Width 11.0 % (11.6-14.8) L Platelet Count 520 K/UL (150-450) H Mean Platelet Volume 6.5 FL (6.5-10.1) Neutrophils (%) (Auto) 74.3 % (45.0-75.0) Lymphocytes (%) (Auto) 13.9 % (20.0-45.0) L Monocytes (%) (Auto) 7.4 % (1.0-10.0) Eosinophils (%) (Auto) 3.7 % (0.0-3.0) H Basophils (%) (Auto) 0.7 % (0.0-2.0) Sodium Level 140 mEQ/L (135-145) Potassium Level 4.0 mEQ/L (3.4-4.9) Chloride Level 101 mEQ/L (98-107) Carbon Dioxide Level 24 mEQ/L (20-30) Anion Gap 15 (5-15) Blood Urea Nitrogen 43 mg/dL (7-23) H Creatinine 3.0 mg/dL (0.7-1.2) H Estimat Glomerular Filtration Rate mL/min (>60) Glucose Level 256 mg/dL (74-106) H Uric Acid 11.6 mg/dL (3.0-7.5) H Calcium Level 8.8 mg/dL (8.6-10.2) Phosphorus Level 4.3 mg/dL (2.5-4.8) Magnesium Level 2.2 mg/dL (1.7-2.5) Total Bilirubin 0.4 mg/dL (0.0-1.2) Aspartate Amino Transf (AST/SGOT) 25 U/L (5-40) Alanine Aminotransferase (ALT/SGPT) 22 U/L (3-41) Alkaline Phosphatase 122 U/L (40-129) Pro-B-Type Natriuretic Peptide 1865 pg/mL (0-450) H Total Protein 6.4 g/dL (6.6-8.7) L Albumin 3.0 g/dL (3.5-5.2) L Globulin 3.4 g/dL Albumin/Globulin Ratio 0.8 (1.0-2.7) L Current Medications Medications (Trade) Dose Ordered Sig/Nitin Route PRN Reason Start Time Stop Time Status Last Admin Dose Admin Acetaminophen (Tylenol) 650 mg Q4H PRN ORAL T>100.5 12/05/16 18:15 01/04/17 18:14 Allopurinol (Zyloprim) 100 mg DAILY ORAL 12/07/16 16:30 01/06/17 16:29 12/08/16 09:43 Amiodarone HCl (Cordarone) 200 mg BID ORAL 12/08/16 18:00 01/05/17 20:59 Apixaban (Eliquis) 2.5 mg BID ORAL 12/06/16 16:00 01/05/17 15:59 12/08/16 09:43 Cetylpyridinium Chloride (Cepacol) 1 lozenge Q6HR PRN DUNG SORE THROAT 9/18/17 22:15 01/04/17 22:14 12/05/16 22:23 Clotrimazole (Lotrimin) 1 applic EVERY 12 HOURS TOPIC 12/07/16 21:00 01/06/17 20:59 12/08/16 10:12 Dextrose (Dextrose 50%) STAT PRN IV Hypoglycemia 12/05/16 21:45 01/04/17 21:44 Diltiazem HCl (Cardizem) 30 mg Q8H ORAL 12/08/16 20:00 01/05/17 17:59 Insulin Aspart (NovoLOG) BEFORE MEALS AND HS SUBQ 12/05/16 23:00 01/04/17 22:59 12/08/16 12:37 Ipratropium [place] (Atrovent) 500 mcg TIDRT HHN 12/07/16 19:00 12/12/16 18:59 12/08/16 13:07 Levofloxacin 50 ml @ 50 mls/hr Q24H IVPB 12/07/16 15:00 12/14/16 14:59 12/08/16 15:16 Ondansetron HCl (Zofran) 4 mg Q6H PRN IVP Nausea & Vomiting 12/05/16 18:15 01/04/17 18:14 Pantoprazole (Protonix) 40 mg BID ORAL 12/06/16 14:15 01/05/17 14:14 12/08/16 09:43 Polyethylene Glycol (Miralax) 17 gm DAILYPRN PRN ORAL Constipation 12/05/16 18:15 01/04/17 18:14 Promethazine HCl/ Codeine (Phenergan with Codeine) 5 ml Q4H PRN ORAL For Cough 12/06/16 14:00 01/05/17 13:59 Temazepam (Restoril) 15 mg HSPRN PRN ORAL Insomnia 12/05/16 21:00 12/12/16 20:59 ASHLY LAGUNAS Dec 08, 2016 15:31
[2016-12-08 16:00] VITALS: BP 138/58
--- NOTE | 2016-12-08 16:46 | Cardiology Report ---
APPROVED REPORT EXAM: Two-dimensional and M-mode echocardiogram with Doppler and color Doppler. INDICATION LV function M-Mode DIMENSIONS IVSd1.3 (0.7-1.1cm)Left Atrium (MM)4.5 (1.6-4.0cm) LVDd5.1 (3.5-5.6cm)Aortic Root3.7 (2.0-3.7cm) PWd1.2 (0.7-1.1cm)Aortic Cusp Exc.2.2 (1.5-2.0cm) LVDs2.9 (2.5-4.0cm) PWs1.9 cm Technically difficult study due to poor acoustical windows. Normal left ventricular chamber size, systolic function and wall motion to extent visualized except for inferior wall hypokinesis Left ventricular ejection fraction estimated to be 55 %. Study quality precludes accurate assessment of regional wall motion. Mild left ventricular hypertrophy. Anterior Echo-free space, may be due to pericardial fat or effusion. All other cardiac chamber sizes are within normal limits. Focal aortic valve sclerosis with adequate cusp excursion. Thickened mitral valve leaflets with normal excursion. Mitral annulus and aortic root calcification. Pulmonic valve not well visualized. Normal tricuspid valve structure. IVC at normal size with physiologic collapse. A color flow and spectral Doppler study was performed and revealed: Trace aortic regurgitation. Mild mitral regurgitation. Mitral diastolic velocities suggest reduced left ventricular relaxation c/w mild LV diastolic dysfunction (Grade I). Trace tricuspid regurgitation. Tricuspid systolic velocities suggests peak right ventricular systolic pressure of 23 mmHg.
[2016-12-08 20:04] VITALS: BP 133/64
[2016-12-08 23:50] VITALS: BP 130/75
[2016-12-09 03:53] VITALS: BP 128/70
[2016-12-09] MEDS: NovoLOG Insulin Flexpen SUBQ SCH ×2 (06:34→12:34)
[2016-12-09] MEDS: Ipratropium 0.02% Inh Soln 2.5ml UD HHN SCH ×2 (07:50→13:46)
[2016-12-09 08:00] VITALS: BP 121/56
[2016-12-09 08:33] LABS: EOSINOPHILS % (AUTO) 4.6 % (0.0-3.0); LYMPHOCYTES % (AUTO) 12.9 % (20.0-45.0); MEAN CORPUSCULAR HEMOGLOBIN 33.2 PG (27.0-31.0); MEAN CORPUSCULAR VOLUME 95 FL (80-99); MEAN PLATELET VOLUME 6.2 FL (6.5-10.1); MONOCYTES % (AUTO) 6.3 % (1.0-10.0); NEUTROPHILS % (AUTO) 75.3 % (45.0-75.0); PLATELET COUNT 518 K/UL (150-450); RED BLOOD COUNT 3.11 M/UL (4.70-6.10); RED CELL DISTRIBUTION WIDTH 11.4 % (11.6-14.8); WHITE BLOOD COUNT 9.7 K/UL (4.8-10.8)
[2016-12-09 08:52] LABS: ANION GAP 13 (5-15); CALCIUM 8.5 mg/dL (8.6-10.2); CARBON DIOXIDE 25 mEQ/L (20-30); CHLORIDE 102 mEQ/L (98-107); CREATININE 2.8 mg/dL (0.7-1.2); HEMOLYSIS 1; SODIUM 140 mEQ/L (135-145)
[2016-12-09] MEDS: Eliquis 2.5mg tablet ORAL SCH (09:25)
[2016-12-09] MEDS: Allopurinol 100mg Tab ORAL SCH (09:25)
[2016-12-09] MEDS: Amiodarone 200mg tab ORAL SCH (09:25)
--- NOTE | 2016-12-09 09:48 | General Progress Note ---
Assessment/Plan Status: stable Status Narrative Cr lower 2.8 Assessment/Plan Renal failure , likely chronic , possible superimposed acute Anemia, likely chronic HTN DM presents with SOB , whezzing- Atrial fibrillation - h/o Prostate Ca and surgery- incontinent h/o Back surgery Plan: 2D Echo- Left ventricular ejection fraction estimated to be 55 %. Kidney LISA- negative UA- optimize cardiac and pulmonary status- Anemia cordova- Avoid Nephrotoxics- keep BP and BS in check DC planning ? Subjective ROS Limited/Unobtainable: No Allergies: Coded Allergies: No Known Allergies (Unverified , 12/05/16) Objective Last 24 Hour Vital Signs Date Time Temp Pulse Resp B/P (MAP) Pulse Ox O2 Delivery O2 Flow Rate FiO2 12/09/16 08:00 79 12/09/16 08:00 97.9 67 20 121/56 97 Nasal Cannula 2.0 12/09/16 07:45 72 20 95 Nasal Cannula 4.0 12/09/16 07:44 95 Nasal Cannula 4.0 12/09/16 07:43 Nasal Cannula 4.0 12/09/16 04:14 68 120/60 12/09/16 04:00 67 12/09/16 03:53 97.8 75 20 128/70 98 Room Air 12/09/16 00:00 65 12/08/16 23:50 98.8 71 21 130/75 97 Room Air 12/08/16 21:36 76 133/74 12/08/16 20:04 98.6 68 20 133/64 95 Room Air 12/08/16 20:00 68 12/08/16 19:24 81 18 94 Nasal Cannula 3.0 12/08/16 19:14 Nasal Cannula 4.0 12/08/16 19:14 92 Nasal Cannula 4.0 12/08/16 19:13 79 18 92 Nasal Cannula 3.0 12/08/16 16:00 70 12/08/16 16:00 98.2 70 19 138/58 95 Nasal Cannula 4.0 12/08/16 13:17 87 18 92 Nasal Cannula 3.0 12/08/16 13:07 88 18 91 Nasal Cannula 3.0 12/08/16 12:00 76 12/08/16 12:00 98.1 75 21 116/53 98 Nasal Cannula 4.0 12/08/16 12:00 73 123/48 Laboratory Tests 12/09/16 06:52: White Blood Count 9.7, Red Blood Count 3.11L, Hemoglobin 10.3L, Hematocrit 29.5L , Mean Corpuscular Volume 95, Mean Corpuscular Hemoglobin 33.2H, Mean Corpuscular Hemoglobin Concent 35.0, Red Cell Distribution Width 11.4L, Platelet Count 518H, Mean Platelet Volume 6.2L, Neutrophils (%) (Auto) 75.3H, Lymphocytes (%) (Auto) 12.9L, Monocytes (%) (Auto) 6.3, Eosinophils (%) (Auto) 4.6H, Basophils (%) (Auto) 1.0, Sodium Level 140, Potassium Level 4.0, Chloride Level 102, Carbon Dioxide Level 25, Anion Gap 13, Blood Urea Nitrogen 44H, Creatinine 2.8H, Estimat Glomerular Filtration Rate , Glucose Level 212H, Calcium Level 8.5L Height (Feet): 6 Height (Inches): 0.00 Weight (Pounds): 195 General Appearance: no apparent distress Objective no signs of CHF MILKA VALDEZ Dec 09, 2016 09:48
[2016-12-09 10:50] LABS: OTHERS PATHOLOGIST COMMENT
[2016-12-09 12:00] VITALS: BP 131/66
[2016-12-09] MEDS ORDERED: LEVAQUIN250 M1 ORAL (12:00)
[2016-12-09] MEDS ORDERED: ELIQUIS2.5 MG ORAL (12:00)
[2016-12-09] MEDS ORDERED: PACERONE200 MG ORAL (12:00)
[2016-12-09] MEDS ORDERED: CARDIZEM30 M1 PO (12:02)
--- NOTE | 2016-12-09 12:04 | Discharge Instructions ---
Discharge Instructions Discharge Instructions Follow up with: dr Sheikh in 2 weeks Call MD/Return to Hospital if: fever, palpiattions, dizziness, chest pain, dyspnea Services at Discharge: home health services Diet: diabetic calorie control, cardiac 2 GM Na, low fat Activity: as tolerated - fall precautions For Congestive Heart Failure Reminder Report to your physician any weight gain of 5 pounds or more in one week. [facility] Barnhart NP Dec 09, 2016 12:04
--- NOTE | 2016-12-09 12:06 | Pulmonology Progress Note ---
Assessment/Plan Assessment/Plan ASSESSMENT SOB possible CAP A fib ( new onset) with RVR ( off and on) acute diastolic CHF ARF on CKD HTN DM anemia of chronic disease prostate Ca , s/p surgery sacral decub st 2 , POA PLAN OF CARE tele O2 HHN prn s/p diuresis , off Lasix due to worsening creatinine pro BNP trending down fup CXR with improvement in congestive changes cardio follows rate control with Amiodarone and Cardizem -controlled a/coagulation with Eliquis ECHO with pEF 55% and RVSP of 23, mild LVH Venous Duplex BLE negative BP management with Cardizem and optimize as needed empiric abx, blood cx preliminary negative ID follows BS management with SS of insulin, [id number] at goal renal failure likely chronic with some element of acute, nephro follows off diuresis renal US negative, no hydro, normal echogenicity bilaterally GI prophylaxis monitor HH, stays at baseline, CEA WNL wound care as per wound nurse recommendations dc today with home health services: wound care, BS management, cardiac status management , medication compliance per ID 1 more day of abx case discussed and evaluated by supervising physician Subjective Allergies: Coded Allergies: No Known Allergies (Unverified , 12/05/16) Subjective denies chest pain, SOB feeling better no dizziness Objective Last 24 Hour Vital Signs Date Time Temp Pulse Resp B/P (MAP) Pulse Ox O2 Delivery O2 Flow Rate FiO2 12/09/16 08:00 79 12/09/16 08:00 97.9 67 20 121/56 97 Nasal Cannula 2.0 12/09/16 07:55 71 18 98 Nasal Cannula 3.0 12/09/16 07:45 72 20 95 Nasal Cannula 4.0 12/09/16 07:44 95 Nasal Cannula 4.0 12/09/16 07:43 Nasal Cannula 4.0 12/09/16 04:14 68 120/60 12/09/16 04:00 67 12/09/16 03:53 97.8 75 20 128/70 98 Room Air 12/09/16 00:00 65 12/08/16 23:50 98.8 71 21 130/75 97 Room Air 12/08/16 21:36 76 133/74 12/08/16 20:04 98.6 68 20 133/64 95 Room Air 12/08/16 20:00 68 12/08/16 19:24 81 18 94 Nasal Cannula 3.0 12/08/16 19:14 Nasal Cannula 4.0 12/08/16 19:14 92 Nasal Cannula 4.0 12/08/16 19:13 79 18 92 Nasal Cannula 3.0 12/08/16 16:00 70 12/08/16 16:00 98.2 70 19 138/58 95 Nasal Cannula 4.0 12/08/16 13:17 87 18 92 Nasal Cannula 3.0 12/08/16 13:07 88 18 91 Nasal Cannula 3.0 Objective General Appearance: no acute distress, other - awake, alert, responsive HEENT: normocephalic, atraumatic, anicteric, mucous membranes moist Respiratory/Chest: no respiratory distress, no accessory muscle use, BS clear Cardiovascular: normal rate, regular rhythm - SR with off and on A fib , no JVD Abdomen: soft, non tender, non distended Genitourinary: normal external genitalia Extremities: no edema, pedal pulses normal Neurologic/Psychiatric: abnormal gait, alert, oriented x 3, responsive Musculoskeletal: atrophy Laboratory Tests 12/09/16 06:52: White Blood Count 9.7, Red Blood Count 3.11L, Hemoglobin 10.3L, Hematocrit 29.5L , Mean Corpuscular Volume 95, Mean Corpuscular Hemoglobin 33.2H, Mean Corpuscular Hemoglobin Concent 35.0, Red Cell Distribution Width 11.4L, Platelet Count 518H, Mean Platelet Volume 6.2L, Neutrophils (%) (Auto) 75.3H, Lymphocytes (%) (Auto) 12.9L, Monocytes (%) (Auto) 6.3, Eosinophils (%) (Auto) 4.6H, Basophils (%) (Auto) 1.0, Sodium Level 140, Potassium Level 4.0, Chloride Level 102, Carbon Dioxide Level 25, Anion Gap 13, Blood Urea Nitrogen 44H, Creatinine 2.8H, Estimat Glomerular Filtration Rate , Glucose Level 212H, Calcium Level 8.5L Current Medications Medications (Trade) Dose Ordered Sig/Nitin Route PRN Reason Start Time Stop Time Status Last Admin Dose Admin Acetaminophen (Tylenol) 650 mg Q4H PRN ORAL T>100.5 12/05/16 18:15 01/04/17 18:14 Allopurinol (Zyloprim) 100 mg DAILY ORAL 12/07/16 16:30 01/06/17 16:29 12/09/16 09:25 Amiodarone HCl (Cordarone) 200 mg BID ORAL 12/08/16 18:00 01/05/17 20:59 12/09/16 09:25 Apixaban (Eliquis) 2.5 mg BID ORAL 12/06/16 16:00 01/05/17 15:59 12/09/16 09:25 Cetylpyridinium Chloride (Cepacol) 1 lozenge Q6HR PRN DUNG SORE THROAT 12/05/16 22:15 01/04/17 22:14 12/05/16 22:23 Clotrimazole (Lotrimin) 1 applic EVERY 12 HOURS TOPIC 12/07/16 21:00 01/06/17 20:59 12/09/16 09:26 Dextrose (Dextrose 50%) STAT PRN IV Hypoglycemia 12/05/16 21:45 01/04/17 21:44 Diltiazem HCl (Cardizem) 30 mg Q8H ORAL 12/08/16 20:00 01/05/17 17:59 12/09/16 04:14 Insulin Aspart (NovoLOG) BEFORE MEALS AND HS SUBQ 12/05/16 23:00 01/04/17 22:59 12/09/16 06:34 Ipratropium [place] (Atrovent) 500 mcg TIDRT HHN 12/07/16 19:00 12/12/16 18:59 12/09/16 07:50 Levofloxacin 50 ml @ 50 mls/hr Q24H IVPB 12/07/16 15:00 12/14/16 14:59 12/08/16 15:16 Ondansetron HCl (Zofran) 4 mg Q6H PRN IVP Nausea & Vomiting 12/05/16 18:15 01/04/17 18:14 Pantoprazole (Protonix) 40 mg BID ORAL 12/06/16 14:15 01/05/17 14:14 12/09/16 09:24 Polyethylene Glycol (Miralax) 17 gm DAILYPRN PRN ORAL Constipation 12/05/16 18:15 01/04/17 18:14 Promethazine HCl/ Codeine (Phenergan with Codeine) 5 ml Q4H PRN ORAL For Cough 12/06/16 14:00 10/19/17 13:59 Temazepam (Restoril) 15 mg HSPRN PRN ORAL Insomnia 12/05/16 21:00 12/12/16 20:59 Aristides ([facility])Meenakshi NP Dec 09, 2016 12:06
[2016-12-09 12:28] VITALS: BP 121/56
--- NOTE | 2016-12-11 22:14 | Diagnostic Imaging Report ---
APPROVED REPORT CPT Code: 82076 Present Symptoms Shortness of breath BILATERAL: Imaging reveals a patent deep venous system bilaterally. There is no evidence of thrombus within the femoral, popliteal or tibial segments. The greater saphenous veins are also within normal limits. Doppler indicates normal spontaneous flow within these segments.
--- NOTE | 2016-12-12 14:43 | Discharge Summary ---
Discharge Summary Hospital Course Date of Admission Dec 05, 2016 at 17:13 Date of Discharge Dec 09, 2016 at 15:00 Admitting Diagnosis SOB/new onset Atrial fib HPI Kaiden Guo is a 86 year old male who was admitted on Dec 05, 2016 at 17: 13 for Short Of Breath,New Onset Atrial Fibrilation Hospital Course dc summary #[id number] Discharge Medications New Medications: Diltiazem Hcl* (Cardizem*) 30 Mg Tablet 30 MG PO Q8HR, #90 TAB Levofloxacin* (Levaquin*) 250 Mg Tablet 250 MG ORAL DAILY, #1 TAB Amiodarone Hcl* (Pacerone*) 200 Mg Tablet 200 MG ORAL BID, #58 TAB [id number] mg po bid x 2 weeks #28 tabs then cgange todaily #30 tabs Apixaban (Eliquis) 2.5 Mg Tablet 2.5 MG ORAL BID, #60 TAB Continued Medications: Insulin Glargine (Lantus) 100 Unit/1 Ml Vial 15 SUBQ BEDTIME, #1 EA 0 Refills Discharge Condition Upon Discharge: stable Discharge Disposition Patient was discharged to Home with Home Health(06) Discharge Diagnoses: Discharge Instructions Discharge Instructions Follow up with: dr Sheikh in 2 weeks Call MD/Return to Hospital if: fever, palpiattions, dizziness, chest pain, dyspnea Services Upon Discharge: home health services Activity: as tolerated - fall precautions Aristides [facility])Meenakshi NP Dec 12, 2016 14:43
--- NOTE | 2016-12-13 04:30 | Discharge Summary 2 SIG ---
DATE OF ADMISSION: 12/05/2016 DATE OF DISCHARGE: 12/09/2016 Reason For Admission: 86-year-old male was sent from the primary medical doctor office for questionable new onset of atrial fibrillation. The patient had a progressive shortness of breath for the last 6 days. No chest pain. No fevers. No chills. No cough. No history of asthma. No chronic obstructive pulmonary disease. No congestive heart failure. Past medical history significant for hypertension and diabetes. While in route ECG showed sinus tachycardia with Q-waves in leads V1 and V2. ST depression in V5. EKG from primary medical doctor revealed atrial fibrillation with rapid ventricular response of [address] depression in V5. The patient was given albuterol by software engineer intern for wheezing. In ED patient was given the low dose of Lopressor, heart rate was below 100. Aspirin was given. Troponin was negative. Chest x-ray revealed diffuse pulmonary congestion: CHF, possible underlying pneumonia. Low dose of Lasix was administered. The patient was eugene-cultured, and started on empiric antibiotics for possible community-acquired pneumonia. The patient was admitted for further management. ADMITTING DIAGNOSES: 1. Atrial fibrillation with rapid ventricular response. 2. Acute congestive heart failure, 3. Possible pneumonia. 4. Acute kidney injury. 5. Hypertension. 6. Diabetes. Hospital Stay: The patient was admitted to telemetry floor. Cardiology and ID consults were requested. Supplemental oxygen provided to keep saturation above 92%. Pulmonary toilet provided as needed only with Atrovent. Albuterol was stopped due to the risk of tachycardia. The patient was on diuretic. Pro BNP was trending down. However, diuretic was stopped due to worsening creatinine. Followup chest x-ray revealed improvement in congestive changes. The patient demonstrated on tapestry spontaneous switching between atrial fibrillation and sinus rhythm. Prior to discharge, in sinus rhythm. While in the atrial fibrillation, rate was controlled. Rate control was done with Cardizem and amiodarone. Anticoagulation was started with Eliquis. Echocardiogram revealed ejection fraction of 55%, right ventricular systolic pressure of 23 as well as the mild left ventricular hypertrophy. Venous Duplex bilateral lower extremities was negative. Blood pressure was managed with Cardizem and was stable. Strawhat Sizer cleared the patient for discharge. Strawhat Sizer instructed the patient to take amiodarone twice a day, and in two weeks decrease dose of amiodarone to once daily with a goal to eventually discontinue amiodarone. The patient to follow up as outpatient with regulatory compliance director. in two weeks. The patient agreed to see regulatory compliance director as outpatient. The patient was on empiric antibiotics. Blood culture were preliminary negative. ID specialist followed. The patient was treated for presumptive community acquired pneumonia. Patient will need one more day of antibiotic as outpatient, prescription provided. Blood sugar was managed with sliding scale of insulin. Hemoglobin A1c- 6.9 , at goal. Renal failure was likely chronic with some element of acute. Collections Professional followed. The patient off diuresis. Renal ultrasound negative: no hydronephrosis, normal echogenicity bilaterally. Gastrointestinal prophylaxis provided. Anemia workup was consistent with anemia of chronic disease with low iron and low TIBC as well as the elevated ferritin. Hemoglobin and hematocrit were closely monitored throughout the stay. remained at the baseline. CEA was within normal limits. Wound care was provided as per wound nurse recommendation. The patient was stable for discharge home with home health services for wound care, blood sugar management, and cardiac status management as well as to ensure medication compliance. FINAL DIAGNOSES: 1. Possible community-acquired pneumonia. 2. Atrial fibrillation, new onset with rapid ventricular response. 3. Acute diastolic congestive heart failure. 4. Acute renal failure on chronic kidney disease. 5. Hypertension. 6. Diabetes. 7. Anemia of chronic disease. 8. Prostate cancer, status post surgery. 9. Sacral decubitus stage II, present on admission. DISCHARGE MEDICATIONS: See medication reconciliation list. Need one more day of antibiotic. Decrease amiodarone in two weeks to once daily. Discharge Instruction: The patient was discharged home. Follow up with the primary medical doctor. Follow up with the regulatory compliance director in two weeks. Lilli Nickerson M.D. [facility]shi [facility] N.PLisa DR: FLORES JOB#: [id number] CC: KESHIA
== END 2016-12-09 15:00 | disposition home health service (06) | DRG 291 ==
LOC: EDBD 16:38 → EMR 17:00 → 2E 17:13 → EDBEDREQ 17:43
DX: I50.31 Acute diastolic (congestive) heart failure (principal); J18.9 Pneumonia, unspecified organism; N17.0 Acute kidney failure with tubular necrosis; L89.152 Pressure ulcer of sacral region, stage 2; E11.22 Type 2 diabetes mellitus with diabetic chronic kidney disease; I48.91 Unspecified atrial fibrillation; D63.8 Anemia in other chronic diseases classified elsewhere; Z79.01 Long term (current) use of anticoagulants; I12.9 Hypertensive chronic kidney disease with stage 1 through stage 4 chronic kidney disease, or unspecified chronic kidney disease; I25.10 Atherosclerotic heart disease of native coronary artery without angina pectoris; N18.9 Chronic kidney disease, unspecified; Z85.46 Personal history of malignant neoplasm of prostate; N39.498 Other specified urinary incontinence; Z95.5 Presence of coronary angioplasty implant and graft; Z86.73 Personal history of transient ischemic attack (TIA), and cerebral infarction without residual deficits; K21.9 Gastro-esophageal reflux disease without esophagitis
CPT/HCPCS: 36415; 71010; 76775; 80048; 80053; 80061; 80069; 81001; 82378; 82550; 82553; 82607; 82728; 82746; 82962; 82977; 83036; 83540; 83550; 83615; 83735; 83880; 84100; 84133; 84300; 84443; 84484; 84550; 85007; 85025; 85044; 85060; 85610; 85651; 85730; 86140; 87040; 89050; 93005; 93306; 93970; 94640; 94664; 94760; 99285; J1815; J7620

== ENCOUNTER 2017-01-19 15:15 | Inpatient (IN) | payer MEDICARE, OTHER ==
[~2017-01-19] VITALS: Ht 180.3 cm; Wt 80.7 kg
[~2017-01-19 15:15] MED LIST: CARDIZEM30 M1 PO; ELIQUIS2.5 MG ORAL; LANTUS5 UNITS SUBQ; LEVAQUIN250 M1 ORAL; PACERONE200 MG ORAL
--- NOTE | 2017-01-19 15:37 | Emergency Room Report ---
History of Present Illness General Chief Complaint: Generalized Weakness Source: Patient, EMS Present Illness HPI Patient presents emergency department today complaining of acute onset of nausea vomiting abdominal discomfort and hypotension. Patient states he also feels dizzy. Patient is not a very good historian as he appears very comfortable. Patient was brought in by paramedics. Apparently the caregiver for the patient's called 911 to have the patient evaluated. No further history is available as the patient appears fairly ill. Patient was hypotensive. Symptoms noted to be highly severe.No other modifying factors. No other associated signs and symptoms. No other complaints were noted. Allergies: Coded Allergies: No Known Allergies (Unverified , 12/05/16) Patient History Past Medical History: DM, HTN Past Surgical History: pacemaker Pertinent Family History: none Social History: Denies: smoking, alcohol use, drug use Reviewed Nursing Documentation: PMH: Agreed, PSxH: Agreed Nursing Documentation-PMH Past Medical History: No History, Except For Hx Hypertension: Yes Hx Diabetes: Yes Hx Cancer: Yes Hx Gastrointestinal Problems: No Hx Neurological Problems: No Review of Systems All Other Systems: negative except mentioned in HPI Physical Exam Vital Signs Date Time Temp Pulse Resp B/P (MAP) Pulse Ox O2 Delivery O2 Flow Rate FiO2 01/19/17 15:16 96.1 86 20 87/41 97 Room Air Sp02 EP Interpretation: reviewed, normal General Appearance: moderate distress, lethargic Head: normocephalic Eyes: bilateral eye normal inspection ENT: normal ENT inspection, hearing grossly normal, normal voice Neck: normal inspection, full range of motion, supple, no bony tend Respiratory: normal inspection, lungs clear, normal breath sounds, no respiratory distress, no retraction, no wheezing Cardiovascular #1: regular rate, rhythm, no edema, no gallop Gastrointestinal: normal inspection, normal bowel sounds, non tender, soft, no guarding, no hernia Genitourinary: no CVA tenderness Musculoskeletal: normal inspection Neurologic: alert, responsive, other - confused about month Psychiatric: anxious Skin: diaphoresis Procedures Critical Care Time Critical Care Time Patient had a critical medical condition which untreated could potentially result in life or limb threatening injury. Total critical care time excluding procedures was approximately 45 minutes. Medical Decision Making Diagnostic Impression: Primary Impression: Hypotension Additional Impressions: Gastroenteritis Dehydration Renal insufficiency ER Course Patient presents emergency department today with weakness and altered mental status and hypotension. Differential considerations include dehydration, acute NM, acute renal failure, gastroenteritis, bowel obstruction just to name a few.Given the severity of the patient's presentation I felt this is a highly complex patient. This patient required extensive workup. Because of patient's hypotension this is a critical patient IV was immediately established patient was given fluids. Patient blood pressure improved significantly. Laboratory workup was not impressive CT scan of the abdomen and pelvis shows possible gastroenteritis. Patient's blood pressure did improve but appears to weak with active nausea vomiting and diarrhea. Because of the presentation and the tenuous blood pressure felt the patient require admission to the hospital to telemetry unit. Case was discussed with Dr. Nickerson who very graciously agreed to admit the patient. Patient also had evidence of renal insufficiency which could have to do it patient's low blood pressure as well as dehydration. Labs Test 01/19/17 15:30 White Blood Count 8.8 K/UL (4.8-10.8) Red Blood Count 4.19 M/UL (4.70-6.10) Hemoglobin 13.2 G/DL (14.2-18.0) Hematocrit 39.7 % (42.0-52.0) Mean Corpuscular Volume 95 FL (80-99) Mean Corpuscular Hemoglobin 31.4 PG (27.0-31.0) Mean Corpuscular Hemoglobin Concent 33.2 G/DL (32.0-36.0) Red Cell Distribution Width 12.1 % (11.6-14.8) Platelet Count 467 K/UL (150-450) Mean Platelet Volume 5.8 FL (6.5-10.1) Neutrophils (%) (Auto) 61.6 % (45.0-75.0) Lymphocytes (%) (Auto) 33.5 % (20.0-45.0) Monocytes (%) (Auto) 2.9 % (1.0-10.0) Eosinophils (%) (Auto) 1.3 % (0.0-3.0) Basophils (%) (Auto) 0.7 % (0.0-2.0) Prothrombin Time 10.7 SEC (9.30-11.50) Prothromb Time International Ratio 1.0 (0.9-1.1) Activated Partial Thromboplast Time 21 SEC (23-33) Sodium Level 138 MMOL/L (136-145) Potassium Level 4.6 MMOL/L (3.5-5.1) Chloride Level 108 MMOL/L (98-107) Carbon Dioxide Level 16 MMOL/L (21-32) Anion Gap 14 mmol/L (5-15) Blood Urea Nitrogen 42 mg/dL (7-18) Creatinine 2.9 MG/DL (0.55-1.30) Estimat Glomerular Filtration Rate mL/min (>60) Glucose Level 219 MG/DL (74-106) Calcium Level 9.6 MG/DL (8.5-10.1) Total Bilirubin 0.5 MG/DL (0.2-1.0) Aspartate Amino Transf (AST/SGOT) 24 U/L (15-37) Alanine Aminotransferase (ALT/SGPT) 22 U/L (12-78) Alkaline Phosphatase 116 U/L (46-116) Total Creatine Kinase 96 U/L (26-308) Creatine Kinase MB 3.7 NG/ML (0.0-3.6) Creatine Kinase MB Relative Index 3.8 Troponin I 0.018 ng/mL (0.000-0.056) Total Protein 7.0 G/DL (6.4-8.2) Albumin 3.5 G/DL (3.4-5.0) Globulin 3.5 g/dL Albumin/Globulin Ratio 1.0 (1.0-2.7) Lipase 250 U/L (73-393) EKG Diagnostic Results Rate: normal, other - ventricular block Rhythm: NSR ST Segments: no acute changes Rhythm Strip Diag. Results EP Interpretation: yes Rate: 74 Rhythm: NSR, no PVC's, no ectopy, other - ventricular block Chest X-Ray Diagnostic Results Chest X-Ray Diagnostic Results : Chest X-Ray Ordered: Yes # of Views/Limited/Complete: 1 View Indication: Shortness of Breath EP Interpretation: No Interpretation: no consolidation, no effusion, no pneumothorax, no acute cardiopulmonary disease Impression: No acute disease Electronically Signed by: Electronically signed by Ina Mixon MD Last Vital Signs Date Time Temp Pulse Resp B/P (MAP) Pulse Ox O2 Delivery O2 Flow Rate FiO2 01/19/17 15:16 96.1 86 20 87/41 97 Room Air Status: improved Disposition: ADMITTED INPATIENT Condition: Serious INA MXION M.D. Jan 19, 2017 15:37
[2017-01-19 15:40] LABS: BASOPHILS % (AUTO) 0.7 % (0.0-2.0); EOSINOPHILS % (AUTO) 1.3 % (0.0-3.0); HEMATOCRIT 39.7 % (42.0-52.0); HEMOGLOBIN 13.2 G/DL (14.2-18.0); LYMPHOCYTES % (AUTO) 33.5 % (20.0-45.0); MEAN CORPUSCULAR VOLUME 95 FL (80-99); MONOCYTES % (AUTO) 2.9 % (1.0-10.0); NEUTROPHILS % (AUTO) 61.6 % (45.0-75.0); PLATELET COUNT 467 K/UL (150-450); RED BLOOD COUNT 4.19 M/UL (4.70-6.10); RED CELL DISTRIBUTION WIDTH 12.1 % (11.6-14.8); WHITE BLOOD COUNT 8.8 K/UL (4.8-10.8)
[2017-01-19 15:45] VITALS: BP 97/42
[2017-01-19 15:49] LABS: ANION GAP 14 mmol/L (5-15); BLOOD UREA NITROGEN 42 mg/dL (7-18); CALCIUM 9.6 MG/DL (8.5-10.1); CARBON DIOXIDE 16 MMOL/L (21-32); CHLORIDE 108 MMOL/L (98-107); CREATININE 2.9 MG/DL (0.55-1.30); POTASSIUM 4.6 MMOL/L (3.5-5.1); SODIUM 138 MMOL/L (136-145)
[2017-01-19] MEDS ORDERED: ACETAMINOPHEN-1 EAC1 ORAL (15:53)
[2017-01-19] MEDS ORDERED: RAMIPRIL5 MG ORAL (15:53)
[2017-01-19] MEDS ORDERED: ATORVASTATIN CA20 MG ORAL ×2 (15:53→15:58)
[2017-01-19] MEDS ORDERED: ZANTAC150 MG ORAL (15:58)
[2017-01-19] MEDS ORDERED: AMIODARONE HCL400 M1 ORAL (16:00)
[2017-01-19] MEDS ORDERED: GLIPIZIDE5 MG ORAL (16:00)
[2017-01-19] MEDS ORDERED: OMEPRAZOLE40 M1 ORAL (16:01)
[2017-01-19 16:03] LABS: ALANINE AMINOTRANSFERASE 22 U/L (12-78); ALBUMIN 3.5 G/DL (3.4-5.0); ALKALINE PHOSPHATASE 116 U/L (46-116); ASPARTATE AMINO TRANSFERASE 24 U/L (15-37); BILIRUBIN,TOTAL 0.5 MG/DL (0.2-1.0); CKMB 3.7 NG/ML (0.0-3.6); CREATINE KINASE 96 U/L (26-308)
--- NOTE | 2017-01-19 16:33 | Diagnostic Imaging Report ---
Indication: COUGH Technique: One view of the chest Comparison: 12/08/2016 Findings: Power pack overlies the left chest. Lungs and pleural space are clear. Previously demonstrated left perihilar atelectasis is no longer evident. There is a fracture deformity of the left shoulder Impression: No acute process
--- NOTE | 2017-01-19 16:37 | Diagnostic Imaging Report ---
Indication: PAIN Technique: spiral acquisitions obtained through the brain. Angled axial and coronal 5 x 5 mm slices were reconstructed. No IV contrast utilized. Radiation dose was minimized using automated exposure control Total dose length product 1446 mGycm. CTDIvol(s) 70 mGy Comparison: none FINDINGS: No acute hemorrhage or edema. No mass effect or midline shift. There is age-related enlargement of the ventricles and extra axial CSF spaces. There is a focus of cystic encephalomalacia in the right hippocampal region. This results in expected location of the atrium and proximal temporal horn of the right lateral ventricle. There is some obscuration of the posterior fossa by streak artifact from dental amalgam. There is periventricular deep white matter ischemic change. Normal vu-white differentiation. Visualized orbits are unremarkable. Visualized sinuses are unremarkable. Intact calvarium. There is a 1 cm diameter cutaneous lesion in the high right frontal scalp, and a smaller lesion in the left frontal subcutaneous scalp. IMPRESSION: Chronic and age-related changes. 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 Bilateral frontal subcutaneous lesions. Correlate with clinical findings The CT scanner at [facility] is accredited by the [employer] and the scans are performed using protocols designed to limit radiation exposure to as low as reasonably achievable to attain images of sufficient resolution adequate for diagnostic evaluation The CT scanner at [facility] is accredited by the [employer] and the scans are performed using protocols designed to limit radiation exposure to as low as reasonably achievable to attain images of sufficient resolution adequate for diagnostic evaluation. Contrast
--- NOTE | 2017-01-19 16:47 | Diagnostic Imaging Report ---
Indication: Abdominal pain Technique: Spiral acquisitions obtained through the abdomen and pelvis. No oral contrast utilized, per emergency room physician request No IV contrast utilized, per referring physician request.. Multiplanar reconstructions were generated. Total dose length product 716 mGycm. CTDIvol(s) 12 mGy. Dose reduction achieved using automated exposure control Comparison: None Findings: The appendix is normal. The colon is diffusely borderline dilated, filled with gas and fluid, mostly the latter, to the level of the distal descending colon. It is stool-filled, upper limits of normal in caliber distal to this. There is fairly extensive sigmoid diverticulosis. No evidence of diverticulitis. No colonic wall thickening is demonstrated. Small bowel loops are diffusely fluid-filled, upper limits of normal in caliber. The distal esophagus demonstrates a small sliding-type hiatal hernia and possibly some wall thickening. The stomach and duodenum are unremarkable. Lack of IV contrast limits assessment of the solid organs. The liver demonstrates calcifications and segments 7 and 2. The gallbladder demonstrates multiple gallstones. No biliary ductal dilatation. The pancreas is atrophic. The spleen demonstrates several parenchymal calcifications. The adrenals are unremarkable. The kidneys demonstrate perinephric fat stranding. A calcification in the right renal sinus is more likely arterial than calyceal. No mesenteric or retroperitoneal mass or adenopathy. The reservoir for a penile prosthesis is seen in the right lower quadrant. The tubing is incompletely included as is the prosthetic itself. There is a left hip arthroplasty prosthesis. There are is a left common iliac arterial stent. No pelvic mass or adenopathy. The included lung bases demonstrate posterior dependent atelectatic changes. There is anterior wall pericardial thickening versus fluid. The bones demonstrate degenerative spondylosis changes. Impression: Borderline distended gas and fluid filled proximal colon. This may indicates diarrhea. May also indicate colitis, although there is no definite wall thickening present. Mildly prominent fluid-filled small bowel loops may indicate a component of enteritis or diarrhea as well Sigmoid diverticulosis. No evidence of diverticulitis. Hiatal hernia. Possible distal esophageal wall thickening, could indicate a component of esophagitis Cholelithiasis Postsurgical changes as described, including penile prosthesis, left hip arthroplasty, left common iliac arterial stent Incidental findings as noted, including evidence of old granulomatous disease within the liver spleen, pancreatic atrophy, anterior wall pericardial thickening versus fluid, degenerative spondylosis, posterior dependent pulmonary atelectasis The CT scanner at [facility] is accredited by the [employer] and the scans are performed using protocols designed to limit radiation exposure to as low as reasonably achievable to attain images of sufficient resolution adequate for diagnostic evaluation.
[2017-01-19 17:30] VITALS: BP 124/93
[2017-01-19] MEDS ORDERED: Mylanta II UD 30ml ORAL PRN (18:45)
[2017-01-19] MEDS ORDERED: Ketorolac 30mg Inj IV PRN (18:45)
[2017-01-19] MEDS ORDERED: Miralax 17gm pkt ORAL PRN (18:45)
[2017-01-19] MEDS ORDERED: Nitroglycerin Subl 0.4mg tab SL PRN (18:45)
[2017-01-19 20:00] VITALS: BP 153/46
[2017-01-19] MEDS: NovoLOG Insulin Flexpen SUBQ SCH (20:25)
[2017-01-19] MEDS ORDERED: Heparin 5000 units/ml inj SUBQ SCH (21:00)
[2017-01-20] VITALS (8 sets, daily range): BP systolic 86–123; BP diastolic 37–65
[2017-01-20] MEDS: NovoLOG Insulin Flexpen SUBQ SCH ×4 (05:24→21:12)
--- NOTE | 2017-01-20 06:00 | Consultation ---
DATE OF CONSULTATION: 01/19/2017 UROLOGY CONSULTATION CONSULTING PHYSICIAN: Seth Loredo M.D. ATTENDING PHYSICIAN/CONSULTING PHYSICIAN: Lilli Nickerson M.D. CHIEF COMPLAINT AND HISTORY OF PRESENT ILLNESS: I was asked by Dr. Nickerson to evaluate this elderly gentleman regarding a history of possible urinary retention in the setting of previous prostate surgery and hardware. Briefly, the patient presented to the hospital with history of nausea, vomiting, and abdominal pain. He also had dizziness. He was brought to the hospital. The patient has an artificial urinary sphincter through which, he drains his bladder, but he reports that today he has not been able to do so. He has a history of prostate cancer, for which he had a radical prostatectomy complicated by stress incontinence. The artificial urinary sphincter was placed by Dr. Babin at [facility] over 20 years ago. He has never had a problem with it up until more recently when he noted what was described above today. PAST MEDICAL HISTORY: 1. Prostate cancer. 2. Diabetes mellitus. 3. Hypertension. PAST SURGICAL HISTORY: 1. Pacemaker placement. 2. Radical prostatectomy. MEDICATIONS: Please see the chart for current medications administration details. ALLERGIES: No known drug allergies. SOCIAL HISTORY: Unremarkable for tobacco, alcohol, or drug use. FAMILY HISTORY: Noncontributory. REVIEW OF SYSTEMS: A 12-system review of systems was essentially unremarkable outside of what is described above. PHYSICAL EXAMINATION: GENERAL: The patient is an elderly gentleman, awake, alert, oriented x4, in mild distress. HEENT: NC/AT. EOMI. NECK: Supple. Full range of motion. Oropharynx clear. CHEST: Within normal limits. ABDOMEN: Soft, nondistended. Tender suprapubically. Prostatectomy scar clean, dry, and intact. EXTREMITIES: Warm and well perfused. No cyanosis, clubbing, or edema. BACK: No CVA tenderness to percussion. NEUROLOGIC: Grossly nonfocal. GENITOURINARY: Normal male phallus. No discharge, lesions, or curvature. There are bilateral descended testes and cord structures with no masses or tenderness to palpation. The artificial urinary sphincter pump is palpable in the right hemiscrotum. The cuff is palpable in the urethra. LABORATORY DATA: White blood cell count 8.8, hematocrit 39.7, and platelets 467. PT, PTT, and INR within normal limits. Sodium 138, potassium 4.6, chloride 108, bicarbonate 16, BUN 42, creatinine 2.9, glucose 219, and calcium 9.6. Urinalysis, specific gravity 1.005, pH 6.0. Dip test negative for all findings. DIAGNOSTIC IMAGING: CT scan of the abdomen and pelvis reveals borderline gas and fluid-filled proximal colon, possibly indicative of colitis. There are postsurgical changes including penile prosthesis, left hip arthroplasty and left common iliac arterial shunt. I believe the penile prosthesis they are actually referring to is the reservoir for the artificial urinary sphincter. ASSESSMENT AND PLAN: In summary, the patient is an 86-year-old gentleman with a history of prostate cancer, status post radical prostatectomy. His course was complicated by stress urinary incontinence, for which he underwent an artificial urinary sphincter placement many years ago at [facility]. It has worked reasonably well until this time when he presents to the hospital with very little urine output today and abdominal pain and nausea and vomiting. Physical exam reveals an artificial urinary sphincter in place. Laboratory data is notable for evidence of dehydration and renal insufficiency. Diagnostic imaging reveals the pump of the artificial urinary sphincter. Today, at the bedside, I myself attempted to deflate the patient's pump. The button pushed easily and the pump went to the what should have been the open position. Despite the same, there was no urine output. At the patient's request, I then passed a 12-Romansh Frias catheter through the urethra into the bladder. This returned a very small amount of urine. It was inflated and left to gravity drainage and irrigated easily indicating good position. It appears that the patient's low urine output is not due to any kind of obstruction from his sphincter, but rather from oliguria/anuria. This is possibly secondary to dehydration and is backed up by his elevated creatinine and BUN. I would suggest rehydrating the patient and see how his urine output does. I would leave the catheter in place overnight. It can be removed at your discretion and he can return to using his pump when he is better. Thank you for allowing me to participate in the care of this unfortunate gentleman. Please do not hesitate to contact me with any questions that you may further have regarding his care. I will be happy to see him with you as needed. Seth Loredo M.D. DR: Yahaira JOB#: [id number] CC:
[2017-01-20 08:28] LABS: HEMATOCRIT 32.3 % (42.0-52.0); MEAN CORPUSCULAR VOLUME 97 FL (80-99); PLATELET COUNT 350 K/UL (150-450); RED BLOOD COUNT 3.33 M/UL (4.70-6.10); RED CELL DISTRIBUTION WIDTH 12.9 % (11.6-14.8)
[2017-01-20 08:34] LABS: WHITE BLOOD COUNT 22.2 K/UL (4.8-10.8)
[2017-01-20 08:39] LABS: INR 1.1 (0.9-1.1)
[2017-01-20 08:43] LABS: ANION GAP 8 mmol/L (5-15); BLOOD UREA NITROGEN 58 mg/dL (7-18); CALCIUM 8.7 MG/DL (8.5-10.1); CARBON DIOXIDE 21 MMOL/L (21-32); CHLORIDE 111 MMOL/L (98-107); POTASSIUM 5.9 MMOL/L (3.5-5.1); SODIUM 140 MMOL/L (136-145)
[2017-01-20 08:48] LABS: LACTATE DEHYDROGENASE 160 U/L (81-234)
[2017-01-20] MEDS: Amiodarone 200mg tab ORAL SCH (08:54)
[2017-01-20 08:57] LABS: ALANINE AMINOTRANSFERASE 25 U/L (12-78); ALKALINE PHOSPHATASE 88 U/L (46-116); AMYLASE 158 U/L (25-115); ASPARTATE AMINO TRANSFERASE 31 U/L (15-37); BILIRUBIN,TOTAL 0.6 MG/DL (0.2-1.0)
[2017-01-20] MEDS ORDERED: Eliquis 2.5mg tablet ORAL SCH (09:00)
[2017-01-20 09:18] LABS: % IRON SATURATION 7 % (15-50); IRON 13 ug/dL (50-175); TOTAL IRON BINDING CAPACITY 178 ug/dL (250-450)
--- NOTE | 2017-01-20 09:38 | History and Physical ---
History of Present Illness General Date patient seen: Jan 20, 2017 Time patient seen: 08:30 Reason for Hospitalization: Generalized Weakness Present Illness HPI 86 y/old male with hx of DM, HTN, prostate Ca, s/p radical prostatectomy, pacemaker presented to ED with altered mental status, acute onset of nausea, vomiting and abdominal discomfort, diarrhea noted blood in stool He reported very little urinary output He reported being dizzy He denied chest pain, SOB, palpitations Workup in ED revealed low BP -87/41, evidence of renal failure with BUN -42 and creatinine-2.9 CT A/P revealed possible enteritis, possible colitis, diarrhea, cholelithiasis CT head revealed no acute IC pathology CXR unremarkable Stable lytes, LFT, lipase No leukocytosis , afebrile patient was admitted for further management patient seen later by urologist who placed Frias catheter, no significant urinary output, no evidence of urinary retention, patient simply was oliguric due to dehydration - per urologist this am leukocytosis-22 c/o pain L hip Allergies: Coded Allergies: No Known Allergies (Unverified , 12/05/16) Medication History Scheduled Amiodarone Hcl* (Amiodarone Hcl*), 200 MG ORAL DAILY, (Reported) Apixaban (Eliquis), 2.5 MG ORAL BID Atorvastatin Calcium* (Atorvastatin Calcium*), 20 MG ORAL BEDTIME, (Reported) Glipizide* (Glipizide*), 5 MG ORAL DAILY, (Reported) Insulin Glargine (Lantus), 15 SUBQ BEDTIME, (Reported) Omeprazole (Omeprazole), 40 MG ORAL DAILY, (Reported) Ranitidine Hcl* (Zantac*), 75 MG ORAL DAILY, (Reported) Scheduled PRN Acetaminophen With Codeine (T#3) (Tylenol #3 Tab*), 1 TAB ORAL Q4H PRN for For Pain, (Reported) Discontinued Medications Diltiazem Hcl* (Cardizem*), 30 MG PO Q8HR Discontinued Reason: Pt stopped taking med Levofloxacin* (Levaquin*), 250 MG ORAL DAILY Discontinued Reason: Therapy completed Patient History Healthcare decision maker Resuscitation status Full Code Advanced Directive on File No Past Medical/Surgical History Past Medical/Surgical History: (1) Diabetes mellitus (2) Hypertension Review of Systems Constitutional: Reports: weakness Eye: Reports: no symptoms ENT: Reports: no symptoms Respiratory: Reports: cough - dry, no wheezing, no hemoptysis Cardiovascular: Reports: palpitations Gastrointestinal: Reports: constipation Genitourinary: Reports: see HPI Musculoskeletal: Reports: other - left hip pain Psychiatric: Reports: no symptoms Neurological: Reports: no symptoms Endocrine: Reports: other - diabetes Hematologic/Lymphatic: Reports: no symptoms, other Physical Exam General Appearance: no apparent distress, alert Lines, tubes and drains: peripheral HEENT: normocephalic, atraumatic, anicteric, mucous membranes moist Neck: non-tender, supple Respiratory/Chest: lungs clear, no respiratory distress, no accessory muscle use Cardiovascular/Chest: normal peripheral pulses, normal rate, regular rhythm Abdomen: non tender, soft Extremities: no calf tenderness Skin Exam: warm/dry Neurologic: alert Musculoskeletal: normal muscle bulk Last 24 Hour Vital Signs Date Time Temp Pulse Resp B/P (MAP) Pulse Ox O2 Delivery O2 Flow Rate FiO2 01/20/17 08:48 98.1 63 20 114/58 2 Room Air 01/20/17 04:47 98.2 65 24 110/49 99 Nasal Cannula 2.0 01/20/17 04:00 98.2 65 24 110/49 99 Nasal Cannula 2.0 01/20/17 04:00 65 01/20/17 00:49 97.9 65 16 86/37 98 Nasal Cannula 2.0 01/20/17 00:00 67 01/19/17 21:24 97.5 01/19/17 20:00 96.1 40 24 153/46 96 Nasal Cannula 3.0 01/19/17 18:41 72 21 122/93 100 Room Air 01/19/17 17:30 68 23 124/93 97 Room Air 01/19/17 15:45 97.5 60 27 97/42 100 Room Air 01/19/17 15:16 96.1 86 20 87/41 97 Room Air Laboratory Tests Test 01/19/17 15:30 01/20/17 07:35 White Blood Count 8.8 K/UL (4.8-10.8) 22.2 K/UL (4.8-10.8) #*H Red Blood Count 4.19 M/UL (4.70-6.10) L 3.33 M/UL (4.70-6.10) L Hemoglobin 13.2 G/DL (14.2-18.0) L 11.0 G/DL (14.2-18.0) L Hematocrit 39.7 % (42.0-52.0) L 32.3 % (42.0-52.0) L Mean Corpuscular Volume 95 FL (80-99) 97 FL (80-99) Mean Corpuscular Hemoglobin 31.4 PG (27.0-31.0) H 32.9 PG (27.0-31.0) H Mean Corpuscular Hemoglobin Concent 33.2 G/DL (32.0-36.0) 34.0 G/DL (32.0-36.0) Red Cell Distribution Width 12.1 % (11.6-14.8) 12.9 % (11.6-14.8) Platelet Count 467 K/UL (150-450) H 350 K/UL (150-450) Mean Platelet Volume 5.8 FL (6.5-10.1) L 6.3 FL (6.5-10.1) L Neutrophils (%) (Auto) 61.6 % (45.0-75.0) % (45.0-75.0) Lymphocytes (%) (Auto) 33.5 % (20.0-45.0) % (20.0-45.0) Monocytes (%) (Auto) 2.9 % (1.0-10.0) % (1.0-10.0) Eosinophils (%) (Auto) 1.3 % (0.0-3.0) % (0.0-3.0) Basophils (%) (Auto) 0.7 % (0.0-2.0) % (0.0-2.0) Prothrombin Time 10.7 SEC (9.30-11.50) 11.3 SEC (9.30-11.50) Prothromb Time International Ratio 1.0 (0.9-1.1) 1.1 (0.9-1.1) Activated Partial Thromboplast Time 21 SEC (23-33) L 29 SEC (23-33) Sodium Level 138 MMOL/L (136-145) Pending Potassium Level 4.6 MMOL/L (3.5-5.1) Pending Chloride Level 108 MMOL/L (98-107) H Pending Carbon Dioxide Level 16 MMOL/L (21-32) L Pending Anion Gap 14 mmol/L (5-15) Blood Urea Nitrogen 42 mg/dL (7-18) H Pending Creatinine 2.9 MG/DL (0.55-1.30) H Pending Estimat Glomerular Filtration Rate mL/min (>60) Pending Glucose Level 219 MG/DL (74-106) H Pending Calcium Level 9.6 MG/DL (8.5-10.1) Pending Total Bilirubin 0.5 MG/DL (0.2-1.0) Pending Aspartate Amino Transf (AST/SGOT) 24 U/L (15-37) Pending Alanine Aminotransferase (ALT/SGPT) 22 U/L (12-78) Pending Alkaline Phosphatase 116 U/L (46-116) Pending Total Creatine Kinase 96 U/L (26-308) Creatine Kinase MB 3.7 NG/ML (0.0-3.6) H Creatine Kinase MB Relative Index 3.8 Troponin I 0.018 ng/mL (0.000-0.056) Total Protein 7.0 G/DL (6.4-8.2) Pending Albumin 3.5 G/DL (3.4-5.0) Pending Globulin 3.5 g/dL Pending Albumin/Globulin Ratio 1.0 (1.0-2.7) Lipase 250 U/L (73-393) Pending Neutrophils % (Manual) Pending Lymphocytes % (Manual) Pending Platelet Estimate Pending Platelet Morphology Pending Reticulocyte Count Pending Hemoglobin A1c 7.0 % (4.3-6.0) H Iron Level Pending Unsaturated Iron Binding Pending Lactate Dehydrogenase 160 U/L (81-234) Amylase Level Pending Vitamin B12 Level Pending Folate Pending Thyroid Stimulating Hormone (TSH) Pending Height (Feet): 6 Height (Inches): 7.00 Weight (Pounds): 178 Medications Current Medications Medications (Trade) Dose Ordered Sig/Nitin Route PRN Reason Start Time Stop Time Status Last Admin Dose Admin Acetaminophen (Tylenol) 650 mg Q4H PRN ORAL fever 01/19/17 18:45 02/18/17 18:44 01/19/17 20:25 Al Hydroxide/Mg Hydroxide (Mylanta II) 30 ml Q6H PRN ORAL dyspepsia 01/19/17 18:45 02/18/17 18:44 Amiodarone HCl (Cordarone) 200 mg DAILY ORAL 01/20/17 09:00 02/19/17 08:59 01/20/17 08:54 Atorvastatin Calcium (Lipitor) 20 mg BEDTIME ORAL 01/19/17 21:00 02/18/17 20:59 01/19/17 20:23 Dextrose (Dextrose 50%) STAT PRN IV Hypoglycemia 01/19/17 18:45 02/18/17 18:44 Diphenhydramine HCl (Benadryl) 25 mg Q6H PRN ORAL Itching/Pruritis 01/19/17 18:45 02/18/17 18:44 Insulin Aspart (NovoLOG) BEFORE MEALS AND HS SUBQ 01/19/17 21:00 02/18/17 20:59 Ketorolac Tromethamine (Toradol 30mg) 30 mg Q6H PRN IV moderate pian 4-6 01/19/17 18:45 01/24/17 18:44 Nitroglycerin (Ntg) 0.4 mg Q5M X 3 DOSES PRN SL Prn Chest Pain 01/19/17 18:45 02/18/17 18:44 Ondansetron HCl (Zofran) 4 mg Q6H PRN IVP Nausea & Vomiting 01/19/17 18:45 02/18/17 18:44 Polyethylene Glycol (Miralax) 17 gm HSPRN PRN ORAL Constipation 01/19/17 18:45 02/18/17 18:44 Sodium Chloride 1,000 ml @ 50 mls/hr Q20H IV 01/19/17 18:33 02/18/17 18:32 01/19/17 20:26 Temazepam (Restoril) 15 mg HSPRN PRN ORAL Insomnia 01/19/17 18:45 01/26/17 18:44 Assessment/Plan Assessment/Plan ASSESSMENT possible sepsis ( ? UTI ? enteritis? colitis) acute toxic metabolic encephalopathy (likely 2 to dehydration ) bloody diarrhea hypotension dehydration ARF/possible ATN on CRI possible gastroenteritis hx of prostate Ca with radical prostatectomy L hip pain DM hx of HTN pacemaker PAF anemia PLAN OF CARE IVF, increase rate closely monitor BP appears to be hemodynamically stable monitor renal parameters, lytes avoid nephrotoxic renal US on previous admission in November - no hydro, normal echogenicity bilateral kidneys monitor UO panculture start empiric abx ID consult abdominal US GI eval a/emetic prn NPO resume home meds Amiodarone, Eliguis, statin ECHO done in November with pEF 55% and RVSP of 23 BS management with SS of insulin, check HgA1c Venous Duplex BLE pain management X ray L hip anemia w/up , stool OB, CEA monitor counts, transfuse prn case discussed and evaluated by supervising physician Aristides WinklerMeenakshi tejeda NP Jan 20, 2017 09:38
[2017-01-20] MEDS ORDERED: Vancomycin 1.5 GM/D5W 250ML IVPB SCH (10:45)
[2017-01-20] MEDS ORDERED: Zosyn 3.375gm q12h **Extended infusion IVPB SCH (11:30)
--- NOTE | 2017-01-20 11:45 | Consultation ---
Consult Note Consult Note [id number] VALERIA PATIÑO M.D. Jan 20, 2017 11:45
--- NOTE | 2017-01-20 11:45 | Consultation ---
Consult Note Consult Note [id number] VALERIA PATIÑO M.D. Jan 20, 2017 11:45
--- NOTE | 2017-01-20 11:45 | Consultation ---
Consult Note Consult Note [id number] VALERIA PATIÑO M.D. Jan 20, 2017 11:45
--- NOTE | 2017-01-20 12:04 | GI Initial Consult Note ---
Cathy Bosch N.PLisa 01/20/17 1204: History of Present Illness General Date patient seen: Jan 20, 2017 Time patient seen: 11:54 Reason for Hospitalization: Generalized Weakness Referring physician: [facility] Reason for Consultation: EMESIS Present Illness HPI Patient presents emergency department today complaining of acute onset of nausea vomiting abdominal discomfort and hypotension. Patient states he also feels dizzy. Patient is not a very good historian as he appears very comfortable. Patient was brought in by paramedics. Apparently the caregiver for the patient's called 911 to have the patient evaluated. No further history is available as the patient appears fairly ill. Patient was hypotensive. Symptoms noted to be highly severe.No other modifying factors. No other associated signs and symptoms. No other complaints were noted. GI consulted for emesis. HPI as noted above. Pt seen on floor, awake A&Ox4 NAD with no active s/sx of N/V/D. Per patient had episode of emesis in ED, and prior a few at home. Denied any hematemesis or coffee grounds. C/o of only nausea at this time and watery stools. Patient recently had a BM, in which the RN reported red tinge. Last colonoscopy per patient was 2-3 years ago with unremarkable results. He presents today with leukocytosis and diarrhea. CT AP shows possible esophagitis and/or colitis. Lipase unremarkable. Home Meds Active Scripts Apixaban (ELIQUIS) 2.5 Mg Tablet, 2.5 MG ORAL BID, #60 TAB Prov:Aristides (Meenakshi Dominique [employer] 12/09/16 Reported Medications Omeprazole (OMEPRAZOLE) 40 Mg Capsule.dr, 40 MG ORAL DAILY, CAP 01/19/17 Glipizide* (GLIPIZIDE*) 5 Mg Tablet, 5 MG ORAL DAILY, TAB 01/19/17 Amiodarone Hcl* (AMIODARONE HCL*) 400 Mg Tablet, 200 MG ORAL DAILY, TAB 01/19/17 Ranitidine Hcl* (ZANTAC*) 150 Mg Tablet, 75 MG ORAL DAILY, #30 TAB 0 Refills 01/19/17 Atorvastatin Calcium* (ATORVASTATIN CALCIUM*) 20 Mg Tablet, 20 MG ORAL BEDTIME, TAB 01/19/17 Acetaminophen With Codeine (T#3) (TYLENOL #3 TAB*) Y Tab, 1 TAB ORAL Q4H Y for For Pain, TAB 01/19/17 Insulin Glargine (Lantus) 100 Unit/1 Ml Vial, 15 SUBQ BEDTIME, #1 EA 0 Refills 12/05/16 Discontinued Scripts Diltiazem Hcl* (CARDIZEM*) 30 Mg Tablet, 30 MG PO Q8HR, #90 TAB Prov:Aristides (Nivia),Meenakshi [employer] 12/09/16 Levofloxacin* (LEVAQUIN*) 250 Mg Tablet, 250 MG ORAL DAILY, #1 TAB Prov:Aristides (Nivia)Meenakshi [employer] 12/09/16 Med list reviewed/reconciled: Yes Allergies: Coded Allergies: No Known Allergies (Unverified , 12/05/16) Patient History History Provided By: Patient, Medical Record PMH Narrative Past Medical History: DM, HTN Past Surgical History: pacemaker Pertinent Family History: none Social History: Denies: smoking, alcohol use, drug use Reviewed Nursing Documentation: PMH: Agreed, PSxH: Agreed Nursing Documentation-PMH Past Medical History: No History, Except For Hx Hypertension: Yes Hx Diabetes: Yes Hx Cancer: Yes Hx Gastrointestinal Problems: No Hx Neurological Problems: No Review of Systems All Other Systems: negative except mentioned in HPI Physical Exam Vital Signs Date Time Temp Pulse Resp B/P (MAP) Pulse Ox O2 Delivery O2 Flow Rate FiO2 01/19/17 15:16 96.1 86 20 87/41 97 Room Air 01/19/17 20:00 3.0 Sp02 EP Interpretation: reviewed, normal Labs Laboratory Tests Test 01/19/17 15:30 01/20/17 07:35 White Blood Count 8.8 K/UL (4.8-10.8) 22.2 K/UL (4.8-10.8) #*H Red Blood Count 4.19 M/UL (4.70-6.10) L 3.33 M/UL (4.70-6.10) L Hemoglobin 13.2 G/DL (14.2-18.0) L 11.0 G/DL (14.2-18.0) L Hematocrit 39.7 % (42.0-52.0) L 32.3 % (42.0-52.0) L Mean Corpuscular Volume 95 FL (80-99) 97 FL (80-99) Mean Corpuscular Hemoglobin 31.4 PG (27.0-31.0) H 32.9 PG (27.0-31.0) H Mean Corpuscular Hemoglobin Concent 33.2 G/DL (32.0-36.0) 34.0 G/DL (32.0-36.0) Red Cell Distribution Width 12.1 % (11.6-14.8) 12.9 % (11.6-14.8) Platelet Count 467 K/UL (150-450) H 350 K/UL (150-450) Mean Platelet Volume 5.8 FL (6.5-10.1) L 6.3 FL (6.5-10.1) L Neutrophils (%) (Auto) 61.6 % (45.0-75.0) % (45.0-75.0) Lymphocytes (%) (Auto) 33.5 % (20.0-45.0) % (20.0-45.0) Monocytes (%) (Auto) 2.9 % (1.0-10.0) % (1.0-10.0) Eosinophils (%) (Auto) 1.3 % (0.0-3.0) % (0.0-3.0) Basophils (%) (Auto) 0.7 % (0.0-2.0) % (0.0-2.0) Prothrombin Time 10.7 SEC (9.30-11.50) 11.3 SEC (9.30-11.50) Prothromb Time International Ratio 1.0 (0.9-1.1) 1.1 (0.9-1.1) Activated Partial Thromboplast Time 21 SEC (23-33) L 29 SEC (23-33) Sodium Level 138 MMOL/L (136-145) 140 MMOL/L (136-145) Potassium Level 4.6 MMOL/L (3.5-5.1) 5.9 MMOL/L (3.5-5.1) H Chloride Level 108 MMOL/L (98-107) H 111 MMOL/L (98-107) H Carbon Dioxide Level 16 MMOL/L (21-32) L 21 MMOL/L (21-32) Anion Gap 14 mmol/L (5-15) 8 mmol/L (5-15) Blood Urea Nitrogen 42 mg/dL (7-18) H 58 mg/dL (7-18) H Creatinine 2.9 MG/DL (0.55-1.30) H 4.0 MG/DL (0.55-1.30) H Estimat Glomerular Filtration Rate mL/min (>60) mL/min (>60) Glucose Level 219 MG/DL (74-106) H 219 MG/DL (74-106) H Calcium Level 9.6 MG/DL (8.5-10.1) 8.7 MG/DL (8.5-10.1) Total Bilirubin 0.5 MG/DL (0.2-1.0) 0.6 MG/DL (0.2-1.0) Aspartate Amino Transf (AST/SGOT) 24 U/L (15-37) 31 U/L (15-37) Alanine Aminotransferase (ALT/SGPT) 22 U/L (12-78) 25 U/L (12-78) Alkaline Phosphatase 116 U/L (46-116) 88 U/L (46-116) Total Creatine Kinase 96 U/L (26-308) Creatine Kinase MB 3.7 NG/ML (0.0-3.6) H Creatine Kinase MB Relative Index 3.8 Troponin I 0.018 ng/mL (0.000-0.056) Total Protein 7.0 G/DL (6.4-8.2) 6.1 G/DL (6.4-8.2) L Albumin 3.5 G/DL (3.4-5.0) 3.0 G/DL (3.4-5.0) L Globulin 3.5 g/dL 3.1 g/dL Albumin/Globulin Ratio 1.0 (1.0-2.7) 1.0 (1.0-2.7) Lipase 250 U/L (73-393) 78 U/L (73-393) Differential Total Cells Counted 100 Neutrophils % (Manual) 82 % (45-75) H Lymphocytes % (Manual) 7 % (20-45) L Monocytes % (Manual) 5 % (1-10) Eosinophils % (Manual) 0 % (0-3) Basophils % (Manual) 0 % (0-2) Band Neutrophils 6 % (0-8) Platelet Estimate Adequate Platelet Morphology Normal Red Blood Cell Morphology Normal Reticulocyte Count 1.4 % (0.0-2.0) Hemoglobin A1c 7.0 % (4.3-6.0) H Iron Level 13 ug/dL (50-175) L Total Iron Binding Capacity 178 ug/dL (250-450) L Percent Iron Saturation 7 % (15-50) L Unsaturated Iron Binding 165 ug/dL (112-346) Lactate Dehydrogenase 160 U/L (81-234) Amylase Level 158 U/L (25-115) H Vitamin B12 Level 658 PG/ML (193-986) Folate 17.0 NG/ML (3.1-17.5) Thyroid Stimulating Hormone (TSH) 3.006 uiU/mL (0.360-3.740) General Appearance: well appearing, no apparent distress, alert Head: normocephalic EENT: PERRL/EOMI, normal ENT inspection Neck: supple Respiratory: normal breath sounds, no respiratory distress Cardiovascular: normal rate Gastrointestinal: normal inspection, non tender, soft, normal bowel sounds, non -distended Rectal: deferred Genitourinary: deferred Musculoskeletal: normal inspection, back normal Neurologic: normal inspection, alert, oriented x3, responsive Psychiatric: normal inspection, judgement/insight normal, memory normal Skin: normal inspection, normal color, no rash, warm/dry, palpation normal, well hydrated Lymphatic: normal inspection, no adenopathy Current Medications Current Medications Medications (Trade) Dose Ordered Sig/Nitin Route PRN Reason Start Time Stop Time Status Last Admin Dose Admin Acetaminophen (Tylenol) 650 mg Q4H PRN ORAL fever 01/19/17 18:45 02/18/17 18:44 01/20/17 11:48 Al Hydroxide/Mg Hydroxide (Mylanta II) 30 ml Q6H PRN ORAL dyspepsia 01/19/17 18:45 02/18/17 18:44 Amiodarone HCl (Cordarone) 200 mg DAILY ORAL 01/20/17 09:00 02/19/17 08:59 01/20/17 08:54 Atorvastatin Calcium (Lipitor) 20 mg BEDTIME ORAL 01/19/17 21:00 02/18/17 20:59 01/19/17 20:23 Ceftriaxone Sodium 2 gm/ Dextrose 110 ml @ 220 mls/hr Q24H IVPB 01/20/17 11:45 01/27/17 11:44 UNV Dextrose (Dextrose 50%) STAT PRN IV Hypoglycemia 01/19/17 18:45 02/18/17 18:44 Diphenhydramine HCl (Benadryl) 25 mg Q6H PRN ORAL Itching/Pruritis 01/19/17 18:45 02/18/17 18:44 Insulin Aspart (NovoLOG) BEFORE MEALS AND HS SUBQ 01/19/17 21:00 02/18/17 20:59 01/20/17 11:50 Ketorolac Tromethamine (Toradol 30mg) 30 mg Q6H PRN IV moderate pian 4-6 01/19/17 18:45 01/24/17 18:44 Metronidazole 100 ml @ 100 mls/hr Q8HR IVPB 01/20/17 14:00 01/27/17 13:59 UNV Nitroglycerin (Ntg) 0.4 mg Q5M X 3 DOSES PRN SL Prn Chest Pain 01/19/17 18:45 02/18/17 18:44 Ondansetron HCl (Zofran) 4 mg Q6H PRN IVP Nausea & Vomiting 01/19/17 18:45 02/18/17 18:44 Polyethylene Glycol (Miralax) 17 gm HSPRN PRN ORAL Constipation 01/19/17 18:45 02/18/17 18:44 Sodium Chloride 1,000 ml @ 75 mls/hr [id number] IV 01/20/17 10:30 02/19/17 10:29 01/20/17 10:59 Temazepam (Restoril) 15 mg HSPRN PRN ORAL Insomnia 01/19/17 18:45 01/26/17 18:44 GI: Plan Problems: (1) Colitis (2) Dehydration (3) Gastroenteritis (4) Hypotension (5) Blood in stool (6) Diabetes mellitus (7) Hypertension Plan CT AP reviewed >> see full report. - Borderline distended gas and fluid filled proximal colon. This may indicates diarrhea. - Hiatal hernia. Possible distal esophageal wall thickening, could indicate a component of esophagitis lipase WNL Colonoscopy scheduled for monday given noted bright red BM. - CLD day prior procedure, NPO @ [place] day prior. - hold all blood thinners >> dc Eliquis now cardiac diet now zofran prn send for cdiff, stool cx anemia work up OB stool r/o GI bleed monitor H&H, prn transfusions ppi fu labs note patient is on eliquis, this med must be dc min 72 hours prior to any GI procedures if scheduled. Discussed with Dr. Rae. Thank you for this patient referral, we will follow. BUTCHDWIGHT 01/23/17 0921: History of Present Illness General Reason for Hospitalization: Generalized Weakness Present Illness Home Meds Active Scripts Apixaban (ELIQUIS) 2.5 Mg Tablet, 2.5 MG ORAL BID, #60 TAB Prov:Aristides (Nivia)Meenakshi NP 12/09/16 Reported Medications Omeprazole (OMEPRAZOLE) 40 Mg Capsule.dr, 40 MG ORAL DAILY, CAP 01/19/17 Glipizide* (GLIPIZIDE*) 5 Mg Tablet, 5 MG ORAL DAILY, TAB 01/19/17 Amiodarone Hcl* (AMIODARONE HCL*) 400 Mg Tablet, 200 MG ORAL DAILY, TAB 01/19/17 Ranitidine Hcl* (ZANTAC*) 150 Mg Tablet, 75 MG ORAL DAILY, #30 TAB 0 Refills 01/19/17 Atorvastatin Calcium* (ATORVASTATIN CALCIUM*) 20 Mg Tablet, 20 MG ORAL BEDTIME, TAB 01/19/17 Acetaminophen With Codeine (T#3) (TYLENOL #3 TAB*) Y Tab, 1 TAB ORAL Q4H Y for For Pain, TAB 01/19/17 Insulin Glargine (Lantus) 100 Unit/1 Ml Vial, 15 SUBQ BEDTIME, #1 EA 0 Refills 12/05/16 Discontinued Scripts Diltiazem Hcl* (CARDIZEM*) 30 Mg Tablet, 30 MG PO Q8HR, #90 TAB Prov:Aristides (Nivia)Meenakshi NP 12/09/16 Levofloxacin* (LEVAQUIN*) 250 Mg Tablet, 250 MG ORAL DAILY, #1 TAB Prov:Meenakshi Irving NP (Vanchtein) 12/09/16 Allergies: Coded Allergies: No Known Allergies (Unverified , 12/05/16) GI: Plan Plan The patient was seen and examined at bedside and all new and available data was reviewed in the patients chart. I agree with the above findings, impression and plan. (Patient seen earlier today. Signature stamp does not reflect patient encounter time.). - MD [facility] Aidan NLisaPLisa Jan 20, 2017 12:04 DWIGHT RAE Jan 23, 2017 09:21
--- NOTE | 2017-01-20 12:24 | Diagnostic Imaging Report ---
Indication: Abdominal pain, abnormal renal function tests Technique: Holland-scale and duplex images of the upper abdomen were obtained Comparison: CT scan of 01/19/2017 Findings: Exam is limited due to patient body habitus Gallbladder demonstrates multiple gallstones. The gallbladder wall is borderline thickened, 3 mm, although this could be an artifact of under distention. Sonographic Rosales's sign is negative. Common bile duct measures 4 mm in diameter. No intrahepatic biliary ductal dilatation. Liver demonstrates normal echogenicity, no focal abnormality. Note, however, that the left lobe is not well demonstrated and pathology could be missed Portal vein and hepatic veins are patent. Pancreas is incompletely visualized due to overlying bowel gas, visualized portions are unremarkable. Spleen is unremarkable. Left kidney measures 10.8 cm in length. Right kidney measures 9.5 cm length. Both kidneys demonstrate normal echogenicity. There is no hydronephrosis. No focal abnormality . Non-aneurysmal abdominal aorta . Impression: Somewhat limited exam, as described. Note suboptimal visualization of the left hepatic lobe and pancreas Cholelithiasis. Portal and gallbladder wall thickening, likely an artifact of incomplete distention. However, consider nuclear medicine hepatobiliary scanning if there is high clinical suspicion for acute cholecystitis Negative for dilated ducts No other significant abnormality
--- NOTE | 2017-01-20 12:26 | Diagnostic Imaging Report ---
APPROVED REPORT CPT Code: 26603 Present Symptoms Shortness of breath BILATERAL: Imaging reveals a patent deep venous system bilaterally. There is no evidence of thrombus within the femoral, popliteal or tibial segments. The greater saphenous veins are also within normal limits. Doppler indicates normal spontaneous flow within these segments.
--- NOTE | 2017-01-20 12:26 | Diagnostic Imaging Report ---
APPROVED REPORT CPT Code: 62014 Present Symptoms Shortness of breath BILATERAL: Imaging reveals a patent deep venous system bilaterally. There is no evidence of thrombus within the femoral, popliteal or tibial segments. The greater saphenous veins are also within normal limits. Doppler indicates normal spontaneous flow within these segments.
--- NOTE | 2017-01-20 12:26 | Diagnostic Imaging Report ---
APPROVED REPORT CPT Code: 20225 Present Symptoms Shortness of breath BILATERAL: Imaging reveals a patent deep venous system bilaterally. There is no evidence of thrombus within the femoral, popliteal or tibial segments. The greater saphenous veins are also within normal limits. Doppler indicates normal spontaneous flow within these segments.
[2017-01-20] MEDS: cefTRIAXone 2 GM in D5W 110 ML IVPB SCH (13:23)
[2017-01-20] MEDS ORDERED: Piperacillin/Tazobactam 3.375 GM in D5W 110 ML IVPB SCH (14:00)
[2017-01-20 14:27] LABS: APPEARANCE,URINE CLOUDY; BILIRUBIN, URINE 2+ (NEGATIVE); GLUCOSE, URINE (UA) NEGATIVE (NEGATIVE); KETONES,URINE 1+ (NEGATIVE); LEUKOCYTE ESTERASE ,URINE 2+ (NEGATIVE); NITRITE,URINE POSITIVE (NEGATIVE); PH,URINE 5 (4.5-8.0); PROTEIN,URINE 2+ (NEGATIVE); UROBILINOGEN,URINE 1 MG/DL (0.0-1.0)
[2017-01-20 14:28] LABS: COLOR,URINE YELLOW
[2017-01-20] MEDS ORDERED: Sodium Polystyrene Sulfonate 15gm Powder ORAL ONE (15:00)
[2017-01-20] MEDS ORDERED: Iron Sucrose 100 MG in NS 55 ML IV ONE (21:00)
[2017-01-21] VITALS (7 sets, daily range): BP systolic 126–146; BP diastolic 46–63
[2017-01-21] MEDS: NovoLOG Insulin Flexpen SUBQ SCH ×4 (05:45→21:01)
[2017-01-21 07:44] LABS: INR 1.1 (0.9-1.1)
[2017-01-21 07:55] LABS: BASOPHILS % (AUTO) 0.3 % (0.0-2.0); EOSINOPHILS % (AUTO) 0.7 % (0.0-3.0); HEMATOCRIT 27.3 % (42.0-52.0); HEMOGLOBIN 9.3 G/DL (14.2-18.0); LYMPHOCYTES % (AUTO) 9.5 % (20.0-45.0); MEAN CORPUSCULAR VOLUME 96 FL (80-99); MONOCYTES % (AUTO) 5.1 % (1.0-10.0); NEUTROPHILS % (AUTO) 84.4 % (45.0-75.0); PLATELET COUNT 235 K/UL (150-450); RED BLOOD COUNT 2.83 M/UL (4.70-6.10); RED CELL DISTRIBUTION WIDTH 12.8 % (11.6-14.8); WHITE BLOOD COUNT 13.5 K/UL (4.8-10.8)
[2017-01-21 08:04] LABS: ALANINE AMINOTRANSFERASE 24 U/L (12-78); ALBUMIN 2.5 G/DL (3.4-5.0); ALBUMIN/GLOBULIN RATIO 0.8 (1.0-2.7); ALKALINE PHOSPHATASE 78 U/L (46-116); ANION GAP 9 mmol/L (5-15); ASPARTATE AMINO TRANSFERASE 29 U/L (15-37); BILIRUBIN,TOTAL 0.4 MG/DL (0.2-1.0); BLOOD UREA NITROGEN 60 mg/dL (7-18); CALCIUM 8.4 MG/DL (8.5-10.1); CARBON DIOXIDE 21 MMOL/L (21-32); CHLORIDE 110 MMOL/L (98-107); CREATININE 4.5 MG/DL (0.55-1.30); POTASSIUM 4.4 MMOL/L (3.5-5.1); SODIUM 140 MMOL/L (136-145)
[2017-01-21 08:09] LABS: FERRITIN 186 NG/ML (8-388)
[2017-01-21] MEDS: Amiodarone 200mg tab ORAL SCH (08:52)
[2017-01-21] MEDS: cefTRIAXone 2 GM in D5W 110 ML IVPB SCH (08:53)
--- NOTE | 2017-01-21 09:28 | Diagnostic Imaging Report ---
Indication: PAIN Technique: XRAY HIP 2V LEFT Comparison: None. Findings: There is a left hip arthroplasty. No displacement. No fracture. Clips are noted in the pelvis from previous surgery. There is also a stent present in what is presumably the left iliac artery. Impression: Left hip arthroplasty. Evidence of previous surgery and stenting in the pelvis. No acute abnormality.
--- NOTE | 2017-01-21 11:11 | Infectious Diseases Prog Note ---
Assessment/Plan Assessment/Plan A: Sepsis Leukocytosis improving Diarrhea ( Bloody ), ro Isch Colitis , Ro Salmoella, and Shigella CDiff Neg CT: Colitis vs Enteritis LACosis US: Cholelithiasis. Portal and gallbladder wall thickening, likely an artifact of incomplete distention. DM HTN, Prostate Ca s/p radical prostatectomy Pacemaker P: Cont pt oin IV Rocephin and Flagyl d# 2 Monitor CBC Monitor BMP, LAC Monitor Cx ( blood and Stool ) GI is following Colonoscopy on Monday Subjective Allergies: Coded Allergies: No Known Allergies (Unverified , 12/05/16) Subjective Afebrile Objective Vital Signs Last 24 Hour Vital Signs Date Time Temp Pulse Resp B/P (MAP) Pulse Ox O2 Delivery O2 Flow Rate FiO2 01/21/17 08:25 96.3 66 20 145/60 93 Nasal Cannula 3.0 01/21/17 08:05 Nasal Cannula 3.0 32 01/21/17 08:05 93 Nasal Cannula 3.0 32 01/21/17 04:00 97.9 67 18 127/51 94 Nasal Cannula 3.0 01/21/17 04:00 61 01/21/17 01:11 97.8 01/21/17 00:00 66 01/21/17 00:00 101.8 18 126/46 94 Nasal Cannula 3.0 01/20/17 21:27 98.4 68 18 123/44 96 Nasal Cannula 3.0 01/20/17 20:00 98.4 66 18 123/44 96 Nasal Cannula 3.0 01/20/17 20:00 69 01/20/17 16:23 98.1 66 20 121/65 97 Nasal Cannula 2.0 01/20/17 16:00 64 01/20/17 12:01 98.1 60 20 122/60 94 Nasal Cannula 2.0 01/20/17 12:00 60 Height (Feet): 6 Height (Inches): 7.00 Weight (Pounds): 178 HEENT: anicteric Respiratory/Chest: no accessory muscle use Cardiovascular: regularly irregular Abdomen: no organomegaly Microbiology Date/Time Source Procedure Growth Status 01/20/17 15:00 Stool Clostridium difficile Toxin Assay - Final Complete 01/20/17 15:00 Stool Received 01/20/17 13:50 Indwelling Cath Urine Culture - Preliminary NO GROWTH Resulted Laboratory Tests Test 01/20/17 12:00 11/3/17 13:15 01/20/17 13:50 01/20/17 15:00 Lactic Acid Level 2.30 mmol/L (0.66-2.22) H 2.90 mmol/L (0.66-2.22) H Urine Color Yellow Urine Appearance Cloudy Urine pH 5 (4.5-8.0) Urine Specific [place] 1.025 (1.005-1.035) Urine Protein 2+ (NEGATIVE) H Urine Glucose (UA) Negative (NEGATIVE) Urine Ketones 1+ (NEGATIVE) H Urine Occult Blood 2+ (NEGATIVE) H Urine Nitrite Positive (NEGATIVE) H Urine Bilirubin 2+ (NEGATIVE) H Urine Ictotest Negative Urine Urobilinogen 1 MG/DL (0.0-1.0) H Urine Leukocyte Esterase 2+ (NEGATIVE) H Urine RBC 2-4 /HPF (0 - 0) H Urine WBC 10-15 /HPF (0 - 0) H Urine Squamous Epithelial Cells Few /LPF (NONE/OCC) Urine Calcium Oxalate Crystals Few /LPF (NONE) Urine Bacteria Moderate /HPF (NONE) H Stool Occult Blood Pending Test 01/21/17 06:50 White Blood Count 13.5 K/UL (4.8-10.8) H Red Blood Count 2.83 M/UL (4.70-6.10) L Hemoglobin 9.3 G/DL (14.2-18.0) L Hematocrit 27.3 % (42.0-52.0) L Mean Corpuscular Volume 96 FL (80-99) Mean Corpuscular Hemoglobin 33.0 PG (27.0-31.0) H Mean Corpuscular Hemoglobin Concent 34.3 G/DL (32.0-36.0) Red Cell Distribution Width 12.8 % (11.6-14.8) Platelet Count 235 K/UL (150-450) Mean Platelet Volume 6.3 FL (6.5-10.1) L Neutrophils (%) (Auto) 84.4 % (45.0-75.0) H Lymphocytes (%) (Auto) 9.5 % (20.0-45.0) L Monocytes (%) (Auto) 5.1 % (1.0-10.0) Eosinophils (%) (Auto) 0.7 % (0.0-3.0) Basophils (%) (Auto) 0.3 % (0.0-2.0) Reticulocyte Count 0.3 % (0.0-2.0) Prothrombin Time 11.3 SEC (9.30-11.50) Prothromb Time International Ratio 1.1 (0.9-1.1) Activated Partial Thromboplast Time 34 SEC (23-33) H Sodium Level 140 MMOL/L (136-145) Potassium Level 4.4 MMOL/L (3.5-5.1) Chloride Level 110 MMOL/L (98-107) H Carbon Dioxide Level 21 MMOL/L (21-32) Anion Gap 9 mmol/L (5-15) Blood Urea Nitrogen 60 mg/dL (7-18) H Creatinine 4.5 MG/DL (0.55-1.30) H Estimat Glomerular Filtration Rate mL/min (>60) Glucose Level 137 MG/DL (74-106) H Calcium Level 8.4 MG/DL (8.5-10.1) L Ferritin 186 NG/ML (8-388) Total Bilirubin 0.4 MG/DL (0.2-1.0) Aspartate Amino Transf (AST/SGOT) 29 U/L (15-37) Alanine Aminotransferase (ALT/SGPT) 24 U/L (12-78) Alkaline Phosphatase 78 U/L (46-116) Total Protein 5.5 G/DL (6.4-8.2) L Albumin 2.5 G/DL (3.4-5.0) L Globulin 3.0 g/dL Albumin/Globulin Ratio 0.8 (1.0-2.7) L Vitamin B12 Level 519 PG/ML (193-986) Folate 17.1 NG/ML (3.1-17.5) Thyroid Stimulating Hormone (TSH) 2.694 uiU/mL (0.360-3.740) Free Thyroxine 1.01 NG/DL (0.10-1.46) Current Medications Medications (Trade) Dose Ordered Sig/Nitin Route PRN Reason Start Time Stop Time Status Last Admin Dose Admin Acetaminophen (Tylenol) 650 mg Q4H PRN ORAL fever 01/19/17 18:45 02/18/17 18:44 01/21/17 00:12 Al Hydroxide/Mg Hydroxide (Mylanta II) 30 ml Q6H PRN ORAL dyspepsia 01/19/17 18:45 02/18/17 18:44 Amiodarone HCl (Cordarone) 200 mg DAILY ORAL 01/20/17 09:00 02/19/17 08:59 01/21/17 08:52 Atorvastatin Calcium (Lipitor) 20 mg BEDTIME ORAL 01/19/17 21:00 02/18/17 20:59 01/20/17 21:13 Bisacodyl (Dulcolax) 10 mg ONCE ONCE ORAL 01/22/17 16:00 01/22/17 16:01 Ceftriaxone Sodium 2 gm/ Dextrose 110 ml @ 220 mls/hr DAILY IVPB 01/20/17 13:00 01/27/17 12:59 01/21/17 08:53 Dextrose (Dextrose 50%) STAT PRN IV Hypoglycemia 01/19/17 18:45 02/18/17 18:44 Diphenhydramine HCl (Benadryl) 25 mg Q6H PRN ORAL Itching/Pruritis 01/19/17 18:45 02/18/17 18:44 Insulin Aspart (NovoLOG) BEFORE MEALS AND HS SUBQ 01/19/17 21:00 02/18/17 20:59 01/21/17 05:45 Ketorolac Tromethamine (Toradol 30mg) 30 mg Q6H PRN IV moderate pian 4-6 01/19/17 18:45 01/24/17 18:44 Metronidazole 100 ml @ 100 mls/hr Q8HR IVPB 01/20/17 14:00 01/27/17 13:59 01/21/17 05:43 Nitroglycerin (Ntg) 0.4 mg Q5M X 3 DOSES PRN SL Prn Chest Pain 01/19/17 18:45 02/18/17 18:44 Ondansetron HCl (Zofran) 4 mg Q6H PRN IVP Nausea & Vomiting 01/19/17 18:45 02/18/17 18:44 Polyethylene Glycol (Miralax) 17 gm HSPRN PRN ORAL Constipation 01/19/17 18:45 02/18/17 18:44 Polyethylene Glycol/ Electrolytes (Nulytely) 4,000 ml ONCE ONCE ORAL 01/22/17 16:00 01/22/17 16:01 Sodium Chloride 1,000 ml @ 100 mls/hr Q10H IV 01/21/17 10:00 02/20/17 09:59 01/21/17 10:17 Temazepam (Restoril) 15 mg HSPRN PRN ORAL Insomnia 01/19/17 18:45 01/26/17 18:44 VALERIA PATIÑO M.D. Jan 21, 2017 11:11
--- NOTE | 2017-01-21 12:49 | Pulmonology Progress Note ---
Assessment/Plan Assessment/Plan ASSESSMENT possible sepsis ( due to ? enteritis? colitis) acute toxic metabolic encephalopathy (likely 2 to dehydration ) -resolved hypotension dehydration ARF/possible ATN on CRI -worsening possible gastroenteritis possible colitis bloody diarrhea hx of prostate Ca with radical prostatectomy L hip pain DM hx of HTN pacemaker PAF anemia PLAN OF CARE tele IVF, increase rate renal US nephro eval closely monitor BP appears to be hemodynamically stable monitor renal parameters, lytes avoid nephrotoxic renal US on previous admission in November - no hydro, normal echogenicity bilateral kidneys monitor UO empiric abx ID follows stool C dif negative, urine cx negative abdominal US noted, no dilated ducts, + cholelithiasis GI follows colonoscopy for Monday given bloody diarrhea, hold Eliquis, a/emetic prn resume home med ECHO done in November with pEF 55% and RVSP of 23 BS management with SS of insulin, HgA1c -7.0 at goal Venous Duplex BLE negative pain management X ray L hip - no acute findings anemia w/up c/w anemia of chronic disease, Venofer check stool OB, CEA monitor counts, transfuse prn case discussed and evaluated by supervising physician Subjective Allergies: Coded Allergies: No Known Allergies (Unverified , 12/05/16) Subjective worsening renal failure low urine output BP stable leucocytosis trending down denies chest pain, SOB, palpitations, Objective Last 24 Hour Vital Signs Date Time Temp Pulse Resp B/P (MAP) Pulse Ox O2 Delivery O2 Flow Rate FiO2 01/21/17 11:31 96.9 61 20 143/50 94 Nasal Cannula 3.0 01/21/17 08:25 96.3 66 20 145/60 93 Nasal Cannula 3.0 01/21/17 08:05 Nasal Cannula 3.0 32 01/21/17 08:05 93 Nasal Cannula 3.0 32 01/21/17 04:00 97.9 67 18 127/51 94 Nasal Cannula 3.0 01/21/17 04:00 61 01/21/17 01:11 97.8 01/21/17 00:00 66 01/21/17 00:00 101.8 18 126/46 94 Nasal Cannula 3.0 01/20/17 21:27 98.4 68 18 123/44 96 Nasal Cannula 3.0 01/20/17 20:00 98.4 66 18 123/44 96 Nasal Cannula 3.0 01/20/17 20:00 69 01/20/17 16:23 98.1 66 20 121/65 97 Nasal Cannula 2.0 01/20/17 16:00 64 Intake and Output 01/21/17 01/22/17 19:00 07:00 Intake Total 250 ml Balance 250 ml Intake Oral 250 ml Objective General Appearance: no apparent distress, alert Lines, tubes and drains: peripheral HEENT: normocephalic, atraumatic, anicteric, mucous membranes moist Neck: non-tender, supple Respiratory/Chest: lungs clear, no respiratory distress, no accessory muscle use Cardiovascular/Chest: normal peripheral pulses, normal rate, regular rhythm Abdomen: non tender, soft. Frias with clear yellow urine Extremities: no calf tenderness Skin Exam: warm/dry Neurologic: alert Musculoskeletal: normal muscle bulk Microbiology Date/Time Source Procedure Growth Status 01/20/17 15:00 Stool Clostridium difficile Toxin Assay - Final Complete 01/20/17 15:00 Stool Received 01/20/17 13:50 Indwelling Cath Urine Culture - Preliminary NO GROWTH Resulted Laboratory Tests 01/20/17 13:15: Lactic Acid Level 2.90H 01/20/17 13:50: Urine Color Yellow, Urine Appearance Cloudy, Urine pH 5, Urine Specific [place] 1.025, Urine Protein 2+H, Urine Glucose (UA) Negative, Urine Ketones 1+H, Urine Occult Blood 2+H, Urine Nitrite PositiveH, Urine Bilirubin 2+H, Urine Ictotest Negative, Urine Urobilinogen 1H, Urine Leukocyte Esterase 2+H, Urine RBC 2-4H, Urine WBC 10-15H, Urine Squamous Epithelial Cells Few, Urine Calcium Oxalate Crystals Few, Urine Bacteria ModerateH 01/20/17 15:00: Stool Occult Blood [Pending] 01/21/17 06:50: White Blood Count 13.5H, Red Blood Count 2.83L, Hemoglobin 9.3L, Hematocrit 27.3L, Mean Corpuscular Volume 96, Mean Corpuscular Hemoglobin 33.0H, Mean Corpuscular Hemoglobin Concent 34.3, Red Cell Distribution Width 12.8, Platelet Count 235, Mean Platelet Volume 6.3L, Neutrophils (%) (Auto) 84.4H, Lymphocytes (%) (Auto) 9.5L, Monocytes (%) (Auto) 5.1, Eosinophils (%) (Auto) 0.7, Basophils (%) (Auto) 0.3, Reticulocyte Count 0.3, Prothrombin Time 11.3, Prothromb Time International Ratio 1.1, Activated Partial Thromboplast Time 34H , Sodium Level 140, Potassium Level 4.4, Chloride Level 110H, Carbon Dioxide Level 21, Anion Gap 9, Blood Urea Nitrogen 60H, Creatinine 4.5H, Estimat Glomerular Filtration Rate , Glucose Level 137H, Calcium Level 8.4L, Ferritin 186, Total Bilirubin 0.4, Aspartate Amino Transf (AST/SGOT) 29, Alanine Aminotransferase (ALT/SGPT) 24, Alkaline Phosphatase 78, Total Protein 5.5L, Albumin 2.5L, Globulin 3.0, Albumin/Globulin Ratio 0.8L, Vitamin B12 Level 519, Folate 17.1, Thyroid Stimulating Hormone (TSH) 2.694, Free Thyroxine 1.01 Current Medications Medications (Trade) Dose Ordered Sig/Nitin Route PRN Reason Start Time Stop Time Status Last Admin Dose Admin Acetaminophen (Tylenol) 650 mg Q4H PRN ORAL fever 01/19/17 18:45 02/18/17 18:44 01/21/17 00:12 Al Hydroxide/Mg Hydroxide (Mylanta II) 30 ml Q6H PRN ORAL dyspepsia 01/19/17 18:45 02/18/17 18:44 Amiodarone HCl (Cordarone) 200 mg DAILY ORAL 01/20/17 09:00 02/19/17 08:59 01/21/17 08:52 Atorvastatin Calcium (Lipitor) 20 mg BEDTIME ORAL 01/19/17 21:00 02/18/17 20:59 01/20/17 21:13 Bisacodyl (Dulcolax) 10 mg ONCE ONCE ORAL 01/22/17 16:00 01/22/17 16:01 Ceftriaxone Sodium 2 gm/ Dextrose 110 ml @ 220 mls/hr DAILY IVPB 01/20/17 13:00 01/27/17 12:59 01/21/17 08:53 Dextrose (Dextrose 50%) STAT PRN IV Hypoglycemia 01/19/17 18:45 02/18/17 18:44 Diphenhydramine HCl (Benadryl) 25 mg Q6H PRN ORAL Itching/Pruritis 01/19/17 18:45 02/18/17 18:44 Insulin Aspart (NovoLOG) BEFORE MEALS AND HS SUBQ 01/19/17 21:00 02/18/17 20:59 01/21/17 11:30 Ketorolac Tromethamine (Toradol 30mg) 30 mg Q6H PRN IV moderate pian 4-6 01/19/17 18:45 01/24/17 18:44 Metronidazole 100 ml @ 100 mls/hr Q8HR IVPB 01/20/17 14:00 01/27/17 13:59 01/21/17 05:43 Nitroglycerin (Ntg) 0.4 mg Q5M X 3 DOSES PRN SL Prn Chest Pain 01/19/17 18:45 02/18/17 18:44 Ondansetron HCl (Zofran) 4 mg Q6H PRN IVP Nausea & Vomiting 01/19/17 18:45 02/18/17 18:44 Polyethylene Glycol (Miralax) 17 gm HSPRN PRN ORAL Constipation 01/19/17 18:45 02/18/17 18:44 Polyethylene Glycol/ Electrolytes (Nulytely) 4,000 ml ONCE ONCE ORAL 01/22/17 16:00 01/22/17 16:01 Sodium Chloride 1,000 ml @ 100 mls/hr Q10H IV 01/21/17 10:00 02/20/17 09:59 01/21/17 10:17 Temazepam (Restoril) 15 mg HSPRN PRN ORAL Insomnia 01/19/17 18:45 01/26/17 18:44 Aristides WinklerMeenakshi tejeda NP Jan 21, 2017 12:49
--- NOTE | 2017-01-21 13:18 | Consultation ---
Consult Note Consult Note asked to eval for renal failure- Know to me from his previous admission Patient presents emergency department today complaining of acute onset of nausea vomiting abdominal discomfort and hypotension. Patient states he also feels dizzy. Patient is not a very good historian as he appears very comfortable. Patient was brought in by paramedics. Apparently the caregiver for the patient's called 911 to have the patient evaluated. No further history is available as the patient appears fairly ill. Patient was hypotensive. Symptoms noted to be highly severe.No other modifying factors. No other associated signs and symptoms. No other complaints were noted. Past Medical History: DM, HTN Past Surgical History: pacemaker Past Medical History: No History, Except For Hx Hypertension: Yes Hx Diabetes: Yes Hx Cancer: Yes admitted for hypotension examined- data reviewed rising Cr . Assessment/Plan Renal failure , ATBN , superimposed on chronic , Hypotension on admit, Etiology?? Anemia, likely chronic HTN DM Atrial fibrillation - h/o Prostate Ca and surgery- incontinent h/o Back surgery Plan: Hydrate- Keep BP above 100 syst Avoid nephrotoxics Monitor renal parameters watch for CHF per orders MILKA VALDEZ Jan 21, 2017 13:18
--- NOTE | 2017-01-21 14:49 | Cardiology Report ---
APPROVED REPORT EKG Measurement Heart [id number] [place] 248P63 [id number] Sinus rhythm with 1st degree AV block Left axis deviation Nonspecific intraventricular block Abnormal ECG
--- NOTE | 2017-01-21 14:49 | Cardiology Report ---
APPROVED REPORT EKG Measurement Heart [id number] [place] [id number] Sinus rhythm with 1st degree AV block Left axis deviation Nonspecific intraventricular block Abnormal ECG
--- NOTE | 2017-01-21 14:49 | Cardiology Report ---
APPROVED REPORT EKG Measurement Heart [id number] [place] 248P63 [id number] Sinus rhythm with 1st degree AV block Left axis deviation Nonspecific intraventricular block Abnormal ECG
--- NOTE | 2017-01-21 15:01 | General Progress Note ---
Assessment/Plan Assessment/Plan Assessment - N/V - resolved - HH - Hematochezia - diarrhea - C Diff (-) - lactic acidosis - thickened GB - OB (+) - DM - HTN - CRF Recommendations - supportive care - hydrate - watch H&H - EGD/Colon Monday Subjective Allergies: Coded Allergies: No Known Allergies (Unverified , 12/05/16) Subjective Feels better loose stool x 1 no abd pain tolerating PO Objective Last 24 Hour Vital Signs Date Time Temp Pulse Resp B/P (MAP) Pulse Ox O2 Delivery O2 Flow Rate FiO2 01/21/17 12:00 61 01/21/17 11:31 96.9 61 20 143/50 94 Nasal Cannula 3.0 01/21/17 08:25 96.3 66 20 145/60 93 Nasal Cannula 3.0 01/21/17 08:05 Nasal Cannula 3.0 32 01/21/17 08:05 93 Nasal Cannula 3.0 32 01/21/17 08:00 71 01/21/17 04:00 97.9 67 18 127/51 94 Nasal Cannula 3.0 01/21/17 04:00 61 01/21/17 01:11 97.8 01/21/17 00:00 66 01/21/17 00:00 101.8 18 126/46 94 Nasal Cannula 3.0 01/20/17 21:27 98.4 68 18 123/44 96 Nasal Cannula 3.0 01/20/17 20:00 98.4 66 18 123/44 96 Nasal Cannula 3.0 01/20/17 20:00 69 01/20/17 16:23 98.1 66 20 121/65 97 Nasal Cannula 2.0 01/20/17 16:00 64 Intake and Output 01/21/17 01/22/17 19:00 07:00 Intake Total 490 ml Balance 490 ml Intake Oral 490 ml Laboratory Tests 01/20/17 15:00: Stool Occult Blood Positive 01/21/17 06:50: White Blood Count 13.5H, Red Blood Count 2.83L, Hemoglobin 9.3L, Hematocrit 27.3L, Mean Corpuscular Volume 96, Mean Corpuscular Hemoglobin 33.0H, Mean Corpuscular Hemoglobin Concent 34.3, Red Cell Distribution Width 12.8, Platelet Count 235, Mean Platelet Volume 6.3L, Neutrophils (%) (Auto) 84.4H, Lymphocytes (%) (Auto) 9.5L, Monocytes (%) (Auto) 5.1, Eosinophils (%) (Auto) 0.7, Basophils (%) (Auto) 0.3, Reticulocyte Count 0.3, Prothrombin Time 11.3, Prothromb Time International Ratio 1.1, Activated Partial Thromboplast Time 34H , Sodium Level 140, Potassium Level 4.4, Chloride Level 110H, Carbon Dioxide Level 21, Anion Gap 9, Blood Urea Nitrogen 60H, Creatinine 4.5H, Estimat Glomerular Filtration Rate , Glucose Level 137H, Calcium Level 8.4L, Ferritin 186, Total Bilirubin 0.4, Aspartate Amino Transf (AST/SGOT) 29, Alanine Aminotransferase (ALT/SGPT) 24, Alkaline Phosphatase 78, Total Protein 5.5L, Albumin 2.5L, Globulin 3.0, Albumin/Globulin Ratio 0.8L, Vitamin B12 Level 519, Folate 17.1, Thyroid Stimulating Hormone (TSH) 2.694, Free Thyroxine 1.01 Height (Feet): 6 Height (Inches): 7.00 Weight (Pounds): 178 Objective Elderly WM NCAT supple CTA RRR Soft flat, mild LLQ TTP no edema non focal KULWANT LIMA Jan 21, 2017 15:01
[2017-01-21] MEDS ORDERED: Tubing IV Secondary IV ONE (18:22)
[2017-01-21] MEDS: Iron Sucrose 100 MG in NS 55 ML IVPB SCH (20:58)
[2017-01-22] VITALS (7 sets, daily range): BP systolic 130–175; BP diastolic 69–78
[2017-01-22] MEDS: NovoLOG Insulin Flexpen SUBQ SCH ×4 (06:29→21:00)
[2017-01-22 07:10] LABS: BASOPHILS % (AUTO) 0.6 % (0.0-2.0); EOSINOPHILS % (AUTO) 2.7 % (0.0-3.0); HEMATOCRIT 27.6 % (42.0-52.0); HEMOGLOBIN 9.3 G/DL (14.2-18.0); LYMPHOCYTES % (AUTO) 11.7 % (20.0-45.0); MEAN CORPUSCULAR VOLUME 96 FL (80-99); MONOCYTES % (AUTO) 5.4 % (1.0-10.0); NEUTROPHILS % (AUTO) 79.6 % (45.0-75.0); PLATELET COUNT 248 K/UL (150-450); RED BLOOD COUNT 2.88 M/UL (4.70-6.10); RED CELL DISTRIBUTION WIDTH 12.4 % (11.6-14.8); WHITE BLOOD COUNT 9.9 K/UL (4.8-10.8)
[2017-01-22 07:49] LABS: ALANINE AMINOTRANSFERASE 21 U/L (12-78); ALBUMIN 2.4 G/DL (3.4-5.0); ALBUMIN/GLOBULIN RATIO 0.8 (1.0-2.7); ALKALINE PHOSPHATASE 84 U/L (46-116); ANION GAP 15 mmol/L (5-15); ASPARTATE AMINO TRANSFERASE 29 U/L (15-37); BILIRUBIN,TOTAL 0.4 MG/DL (0.2-1.0); BLOOD UREA NITROGEN 52 mg/dL (7-18); CALCIUM 8.4 MG/DL (8.5-10.1); CARBON DIOXIDE 16 MMOL/L (21-32); CHLORIDE 111 MMOL/L (98-107); CREATININE 3.9 MG/DL (0.55-1.30); SODIUM 142 MMOL/L (136-145)
[2017-01-22 07:53] LABS: CHOLESTEROL 82 MG/DL (< 200); CREATINE KINASE 77 U/L (26-308); GAMMA GLUTAMYL TRANSPEPTIDASE 20 U/L (5-85); HDL CHOLESTEROL 25 MG/DL (40-60); TRIGLYCERIDES 72 MG/DL (0-200)
[2017-01-22] MEDS: cefTRIAXone 2 GM in D5W 110 ML IVPB SCH (08:09)
[2017-01-22] MEDS: Amiodarone 200mg tab ORAL SCH (08:09)
--- NOTE | 2017-01-22 08:25 | Pulmonology Progress Note ---
Assessment/Plan Assessment/Plan ASSESSMENT possible sepsis ( due to ? enteritis? colitis) acute toxic metabolic encephalopathy (likely 2 to dehydration ) -resolved hypotension dehydration ARF/possible ATN on CRI -worsening possible gastroenteritis possible colitis bloody diarrhea hx of prostate Ca with radical prostatectomy L hip pain DM hx of HTN pacemaker PAF anemia PLAN OF CARE tele IVF, renal US nephro eval appreciated closely monitor BP appears to be hemodynamically stable monitor renal parameters, lytes avoid nephrotoxic renal US on previous admission in November - no hydro, normal echogenicity bilateral kidneys monitor UO creat started to trend down -3.9 cardio eval on Amiodarone already ( from home) add metoprolol, prn to control heart rate asymptomatic currently a/coagulation with Eliquis, currently on hold due to colonoscopy on Monday, resume after procedure 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 abx ID follows stool C dif negative, urine cx negative abdominal US noted, no dilated ducts, + cholelithiasis GI follows colonoscopy for Monday given bloody diarrhea, hold Eliquis, a/emetic prn home medications resumed ECHO done in November with pEF 55% and RVSP of 23 BS management with SS of insulin, HgA1c -7.0 at goal Venous Duplex BLE negative pain management X ray L hip - no acute findings anemia w/up c/w anemia of chronic disease, Venofer check stool OB, CEA monitor counts, transfuse prn case discussed and evaluated by supervising physician Subjective Allergies: Coded Allergies: No Known Allergies (Unverified , 12/05/16) Subjective leukocytosis resolved, afebrile creat with small trend down Mg-1.4 earlier this am A fib with RVR, currently rate controlled , asymptomatic, denies chest pain, SOB, palpitations, Objective Last 24 Hour Vital Signs Date Time Temp Pulse Resp B/P (MAP) Pulse Ox O2 Delivery O2 Flow Rate FiO2 01/22/17 04:00 61 01/22/17 03:30 97.9 58 20 163/75 94 Room Air 01/22/17 00:00 59 01/21/17 23:18 98.2 50 18 129/58 91 Room Air 01/21/17 20:00 64 01/21/17 19:30 Room Air 21 01/21/17 19:30 92 Room Air 21 01/21/17 19:22 97.5 64 19 144/51 92 Room Air 01/21/17 16:00 67 01/21/17 15:28 97.7 64 20 146/63 95 Nasal Cannula 2.0 01/21/17 12:00 61 01/21/17 11:31 96.9 61 20 143/50 94 Nasal Cannula 3.0 01/21/17 08:25 96.3 66 20 145/60 93 Nasal Cannula 3.0 Objective General Appearance: no apparent distress, alert Lines, tubes and drains: peripheral HEENT: normocephalic, atraumatic, anicteric, mucous membranes moist Neck: non-tender, supple Respiratory/Chest: lungs clear, no respiratory distress, no accessory muscle use Cardiovascular/Chest: normal peripheral pulses, A fib on tele, rate controlled Abdomen: non tender, soft. [place] with clear yellow urine Extremities: no calf tenderness Skin Exam: warm/dry Neurologic: alert Musculoskeletal: normal muscle bulk Microbiology Date/Time Source Procedure Growth Status 01/20/17 12:00 Blood Blood Culture - Preliminary NO GROWTH AFTER 24 HOURS Resulted 01/20/17 11:45 Blood Blood Culture - Preliminary NO GROWTH AFTER 24 HOURS Resulted 01/20/17 15:00 Stool Clostridium difficile Toxin Assay - Final Complete 01/20/17 15:00 Stool Received 01/20/17 13:50 Indwelling Cath Urine Culture - Preliminary NO GROWTH Resulted Laboratory Tests 01/22/17 04:30: White Blood Count 9.9, Red Blood Count 2.88L, Hemoglobin 9.3L, Hematocrit 27.6L , Mean Corpuscular Volume 96, Mean Corpuscular Hemoglobin 32.3H, Mean Corpuscular Hemoglobin Concent 33.7, Red Cell Distribution Width 12.4, Platelet Count 248, Mean Platelet Volume 6.4L, Neutrophils (%) (Auto) 79.6H, Lymphocytes (%) (Auto) 11.7L, Monocytes (%) (Auto) 5.4, Eosinophils (%) (Auto) 2.7, Basophils (%) (Auto) 0.6, Sodium Level 142, Potassium Level 4.0, Chloride Level 111H, Carbon Dioxide Level 16L, Anion Gap 15, Blood Urea Nitrogen 52H, Creatinine 3.9H, Estimat Glomerular Filtration Rate , Glucose Level 133H, Hemoglobin A1c 7.0H, Lactic Acid Level 0.50L, Uric Acid 7.7H, Calcium Level 8.4L , Phosphorus Level 4.0, Magnesium Level 1.4L, Total Bilirubin 0.4, Gamma Glutamyl Transpeptidase 20, Aspartate Amino Transf (AST/SGOT) 29, Alanine Aminotransferase (ALT/SGPT) 21, Alkaline Phosphatase 84, Total Creatine Kinase 77, Troponin I 0.031, Pro-B-Type Natriuretic Peptide 3619H, Total Protein 5.6L, Albumin 2.4L, Globulin 3.2, Albumin/Globulin Ratio 0.8L, Triglycerides Level 72 , Cholesterol Level 82, LDL Cholesterol 41, HDL Cholesterol 25L, Cholesterol/ HDL Ratio 3.3, Thyroid Stimulating Hormone (TSH) 3.439 Current Medications Medications (Trade) Dose Ordered Sig/Nitin Route PRN Reason Start Time Stop Time Status Last Admin Dose Admin Acetaminophen (Tylenol) 650 mg Q4H PRN ORAL fever 01/19/17 18:45 02/18/17 18:44 01/21/17 00:12 Amiodarone HCl (Cordarone) 200 mg DAILY ORAL 01/20/17 09:00 02/19/17 08:59 01/22/17 08:09 Atorvastatin Calcium (Lipitor) 20 mg BEDTIME ORAL 01/19/17 21:00 02/18/17 20:59 01/21/17 20:58 Bisacodyl (Dulcolax) 10 mg ONCE ONCE ORAL 01/22/17 16:00 01/22/17 16:01 Ceftriaxone Sodium 2 gm/ Dextrose 110 ml @ 220 mls/hr DAILY IVPB 01/20/17 13:00 01/27/17 12:59 01/22/17 08:09 Dextrose (Dextrose 50%) STAT PRN IV Hypoglycemia 01/19/17 18:45 02/18/17 18:44 Diphenhydramine HCl (Benadryl) 25 mg Q6H PRN ORAL Itching/Pruritis 01/19/17 18:45 02/18/17 18:44 Insulin Aspart (NovoLOG) BEFORE MEALS AND HS SUBQ 01/19/17 21:00 02/18/17 20:59 01/22/17 06:29 Iron Sucrose 100 mg/Sodium Chloride 60 ml @ 240 mls/hr BEDTIME IVPB 01/21/17 21:00 01/25/17 21:14 01/21/17 20:58 Lansoprazole (Prevacid) 30 mg DAILY ORAL 01/22/17 09:00 02/21/17 08:59 01/22/17 08:08 Metronidazole 100 ml @ 100 mls/hr Q8HR IVPB 01/20/17 14:00 01/27/17 13:59 01/22/17 06:30 Nitroglycerin (Ntg) 0.4 mg Q5M X 3 DOSES PRN SL Prn Chest Pain 01/19/17 18:45 02/18/17 18:44 Ondansetron HCl (Zofran) 4 mg Q6H PRN IVP Nausea & Vomiting 01/19/17 18:45 02/18/17 18:44 Polyethylene Glycol (Miralax) 17 gm HSPRN PRN ORAL Constipation 01/19/17 18:45 02/18/17 18:44 Polyethylene Glycol/ Electrolytes (Nulytely) 4,000 ml ONCE ONCE ORAL 01/22/17 16:00 01/22/17 16:01 Sodium Chloride 1,000 ml @ 100 mls/hr Q10H IV 01/21/17 10:00 02/20/17 09:59 01/22/17 06:30 Temazepam (Restoril) 15 mg HSPRN PRN ORAL Insomnia 01/19/17 18:45 01/26/17 18:44 Aristides WinklerMeenakshi tejeda NP Jan 22, 2017 08:25
--- NOTE | 2017-01-22 09:35 | Infectious Diseases Prog Note ---
Assessment/Plan Assessment/Plan A; Sepsis/sepsis Diarrhea resolving, colitis, enteritis A fib Acute renal failure DM P: Continue Flagyl & Rocephin Subjective ROS Limited/Unobtainable: No Constitutional: Reports: anorexia Respiratory: Reports: no symptoms Cardiovascular: Reports: no symptoms Gastrointestinal/Abdominal: Reports: diarrhea, other - decreased Genitourinary: Reports: no symptoms Allergies: Coded Allergies: No Known Allergies (Unverified , 12/05/16) Objective Vital Signs Last 24 Hour Vital Signs Date Time Temp Pulse Resp B/P (MAP) Pulse Ox O2 Delivery O2 Flow Rate FiO2 01/22/17 08:00 97.3 73 19 136/69 Room Air 01/22/17 04:00 61 01/22/17 03:30 97.9 58 20 163/75 94 Room Air 01/22/17 00:00 59 01/21/17 23:18 98.2 50 18 129/58 91 Room Air 01/21/17 20:00 64 01/21/17 19:30 Room Air 21 01/21/17 19:30 92 Room Air 21 01/21/17 19:22 97.5 64 19 144/51 92 Room Air 01/21/17 16:00 67 01/21/17 15:28 97.7 64 20 146/63 95 Nasal Cannula 2.0 01/21/17 12:00 61 01/21/17 11:31 96.9 61 20 143/50 94 Nasal Cannula 3.0 Height (Feet): 6 Height (Inches): 7.00 Weight (Pounds): 178 General Appearance: no acute distress HEENT: mucous membranes moist Respiratory/Chest: lungs clear Cardiovascular: normal rate, irregularly irregular Abdomen: soft, non tender Extremities: no edema Neurologic/Psychiatric: alert, oriented x 3, responsive Microbiology Date/Time Source Procedure Growth Status 01/20/17 12:00 Blood Blood Culture - Preliminary NO GROWTH AFTER 24 HOURS Resulted 01/20/17 11:45 Blood Blood Culture - Preliminary NO GROWTH AFTER 24 HOURS Resulted 01/20/17 15:00 Stool Clostridium difficile Toxin Assay - Final Complete 01/20/17 15:00 Stool Received 01/20/17 13:50 Indwelling Cath Urine Culture - Preliminary Gram Positive Cocci Resulted Laboratory Tests Test 01/22/17 04:30 White Blood Count 9.9 K/UL (4.8-10.8) Red Blood Count 2.88 M/UL (4.70-6.10) L Hemoglobin 9.3 G/DL (14.2-18.0) L Hematocrit 27.6 % (42.0-52.0) L Mean Corpuscular Volume 96 FL (80-99) Mean Corpuscular Hemoglobin 32.3 PG (27.0-31.0) H Mean Corpuscular Hemoglobin Concent 33.7 G/DL (32.0-36.0) Red Cell Distribution Width 12.4 % (11.6-14.8) Platelet Count 248 K/UL (150-450) Mean Platelet Volume 6.4 FL (6.5-10.1) L Neutrophils (%) (Auto) 79.6 % (45.0-75.0) H Lymphocytes (%) (Auto) 11.7 % (20.0-45.0) L Monocytes (%) (Auto) 5.4 % (1.0-10.0) Eosinophils (%) (Auto) 2.7 % (0.0-3.0) Basophils (%) (Auto) 0.6 % (0.0-2.0) Sodium Level 142 MMOL/L (136-145) Potassium Level 4.0 MMOL/L (3.5-5.1) Chloride Level 111 MMOL/L (98-107) H Carbon Dioxide Level 16 MMOL/L (21-32) L Anion Gap 15 mmol/L (5-15) Blood Urea Nitrogen 52 mg/dL (7-18) H Creatinine 3.9 MG/DL (0.55-1.30) H Estimat Glomerular Filtration Rate mL/min (>60) Glucose Level 133 MG/DL (74-106) H Hemoglobin A1c 7.0 % (4.3-6.0) H Lactic Acid Level 0.50 mmol/L (0.66-2.22) L Uric Acid 7.7 MG/DL (2.6-7.2) H Calcium Level 8.4 MG/DL (8.5-10.1) L Phosphorus Level 4.0 MG/DL (2.5-4.9) Magnesium Level 1.4 MG/DL (1.8-2.4) L Total Bilirubin 0.4 MG/DL (0.2-1.0) Gamma Glutamyl Transpeptidase 20 U/L (5-85) Aspartate Amino Transf (AST/SGOT) 29 U/L (15-37) Alanine Aminotransferase (ALT/SGPT) 21 U/L (12-78) Alkaline Phosphatase 84 U/L (46-116) Total Creatine Kinase 77 U/L (26-308) Troponin I 0.031 ng/mL (0.000-0.056) Pro-B-Type Natriuretic Peptide 3619 pg/mL (0-125) H Total Protein 5.6 G/DL (6.4-8.2) L Albumin 2.4 G/DL (3.4-5.0) L Globulin 3.2 g/dL Albumin/Globulin Ratio 0.8 (1.0-2.7) L Triglycerides Level 72 MG/DL (0-200) Cholesterol Level 82 MG/DL (< 200) LDL Cholesterol 41 mg/dL (<100) HDL Cholesterol 25 MG/DL (40-60) L Cholesterol/HDL Ratio 3.3 (3.3-4.4) Thyroid Stimulating Hormone (TSH) 3.439 uiU/mL (0.360-3.740) Current Medications Medications (Trade) Dose Ordered Sig/Nitin Route PRN Reason Start Time Stop Time Status Last Admin Dose Admin Acetaminophen (Tylenol) 650 mg Q4H PRN ORAL fever 01/19/17 18:45 02/18/17 18:44 01/21/17 00:12 Amiodarone HCl (Cordarone) 200 mg DAILY ORAL 01/20/17 09:00 02/19/17 08:59 01/22/17 08:09 Atorvastatin Calcium (Lipitor) 20 mg BEDTIME ORAL 01/19/17 21:00 02/18/17 20:59 01/21/17 20:58 Bisacodyl (Dulcolax) 10 mg ONCE ONCE ORAL 01/22/17 16:00 01/22/17 16:01 Ceftriaxone Sodium 2 gm/ Dextrose 110 ml @ 220 mls/hr DAILY IVPB 01/20/17 13:00 01/27/17 12:59 01/22/17 08:09 Dextrose (Dextrose 50%) STAT PRN IV Hypoglycemia 01/19/17 18:45 02/18/17 18:44 Diphenhydramine HCl (Benadryl) 25 mg Q6H PRN ORAL Itching/Pruritis 01/19/17 18:45 02/18/17 18:44 Insulin Aspart (NovoLOG) BEFORE MEALS AND HS SUBQ 01/19/17 21:00 02/18/17 20:59 01/22/17 06:29 Iron Sucrose 100 mg/Sodium Chloride 60 ml @ 240 mls/hr BEDTIME IVPB 01/21/17 21:00 01/25/17 21:14 01/21/17 20:58 Lansoprazole (Prevacid) 30 mg DAILY ORAL 01/22/17 09:00 02/21/17 08:59 01/22/17 08:08 Metronidazole 100 ml @ 100 mls/hr Q8HR IVPB 01/20/17 14:00 01/27/17 13:59 01/22/17 06:30 Nitroglycerin (Ntg) 0.4 mg Q5M X 3 DOSES PRN SL Prn Chest Pain 01/19/17 18:45 02/18/17 18:44 Ondansetron HCl (Zofran) 4 mg Q6H PRN IVP Nausea & Vomiting 01/19/17 18:45 02/18/17 18:44 Polyethylene Glycol (Miralax) 17 gm HSPRN PRN ORAL Constipation 01/19/17 18:45 02/18/17 18:44 Polyethylene Glycol/ Electrolytes (Nulytely) 4,000 ml ONCE ONCE ORAL 01/22/17 16:00 01/22/17 16:01 Sodium Chloride 1,000 ml @ 100 mls/hr Q10H IV 01/21/17 10:00 02/20/17 09:59 01/22/17 06:30 Temazepam (Restoril) 15 mg HSPRN PRN ORAL Insomnia 01/19/17 18:45 01/26/17 18:44 JEFFERY METZ Jan 22, 2017 09:35
--- NOTE | 2017-01-22 10:41 | Nephrology Progress Note ---
Assessment/Plan Problem List: (1) ATN (acute tubular necrosis) (2) Hypotension (3) Renal insufficiency Assessment Renal failure , ATN , superimposed on chronic , Cr lower peaked 4.5 now 3.9 Hypotension on admit, Etiology?? Improved Anemia, likely chronic HTN DM Atrial fibrillation - h/o Prostate Ca and surgery- incontinent h/o Back surgery Plan Plan: Hydrate- Keep BP above 100 syst Avoid nephrotoxics Monitor renal parameters watch for CHF per orders Subjective ROS Limited/Unobtainable: No Constitutional: Reports: malaise, weakness Objective Objective Last 24 Hour Vital Signs Date Time Temp Pulse Resp B/P (MAP) Pulse Ox O2 Delivery O2 Flow Rate FiO2 01/22/17 08:00 97.3 73 19 136/69 Room Air 01/22/17 04:00 61 01/22/17 03:30 97.9 58 20 163/75 94 Room Air 01/22/17 00:00 59 01/21/17 23:18 98.2 50 18 129/58 91 Room Air 01/21/17 20:00 64 01/21/17 19:30 Room Air 21 01/21/17 19:30 92 Room Air 21 01/21/17 19:22 97.5 64 19 144/51 92 Room Air 01/21/17 16:00 67 01/21/17 15:28 97.7 64 20 146/63 95 Nasal Cannula 2.0 01/21/17 12:00 61 01/21/17 11:31 96.9 61 20 143/50 94 Nasal Cannula 3.0 Laboratory Tests 01/22/17 04:30: White Blood Count 9.9, Red Blood Count 2.88L, Hemoglobin 9.3L, Hematocrit 27.6L , Mean Corpuscular Volume 96, Mean Corpuscular Hemoglobin 32.3H, Mean Corpuscular Hemoglobin Concent 33.7, Red Cell Distribution Width 12.4, Platelet Count 248, Mean Platelet Volume 6.4L, Neutrophils (%) (Auto) 79.6H, Lymphocytes (%) (Auto) 11.7L, Monocytes (%) (Auto) 5.4, Eosinophils (%) (Auto) 2.7, Basophils (%) (Auto) 0.6, Sodium Level 142, Potassium Level 4.0, Chloride Level 111H, Carbon Dioxide Level 16L, Anion Gap 15, Blood Urea Nitrogen 52H, Creatinine 3.9H, Estimat Glomerular Filtration Rate , Glucose Level 133H, Hemoglobin A1c 7.0H, Lactic Acid Level 0.50L, Uric Acid 7.7H, Calcium Level 8.4L , Phosphorus Level 4.0, Magnesium Level 1.4L, Total Bilirubin 0.4, Gamma Glutamyl Transpeptidase 20, Aspartate Amino Transf (AST/SGOT) 29, Alanine Aminotransferase (ALT/SGPT) 21, Alkaline Phosphatase 84, Total Creatine Kinase 77, Troponin I 0.031, Pro-B-Type Natriuretic Peptide 3619H, Total Protein 5.6L, Albumin 2.4L, Globulin 3.2, Albumin/Globulin Ratio 0.8L, Triglycerides Level 72 , Cholesterol Level 82, LDL Cholesterol 41, HDL Cholesterol 25L, Cholesterol/ HDL Ratio 3.3, Thyroid Stimulating Hormone (TSH) 3.439 Height (Feet): 6 Height (Inches): 7.00 Weight (Pounds): 178 General Appearance: no apparent distress Cardiovascular: normal rate Respiratory/Chest: decreased breath sounds Abdomen: soft MILKA VALDEZ Jan 22, 2017 10:41
[2017-01-22] MEDS ORDERED: Metoprolol 5mg/5ml Inj IVP PRN (10:45)
[2017-01-22] MEDS ORDERED: Metoprolol Tartrate 50mg tab ORAL SCH (13:15)
[2017-01-22] MEDS ORDERED: Eliquis 2.5mg tablet ORAL SCH (13:15)
[2017-01-22] MEDS ORDERED: Nulytely 4L ORAL ONE (16:00)
[2017-01-22] MEDS ORDERED: Bisacodyl EC 5mg tab ORAL ONE (16:00)
--- NOTE | 2017-01-22 16:02 | Cardiology Progress Note ---
Subjective Subjective [id number] Objective Last 24 Hour Vital Signs Date Time Temp Pulse Resp B/P (MAP) Pulse Ox O2 Delivery O2 Flow Rate FiO2 01/22/17 13:30 110 130/70 01/22/17 12:00 97.5 19 130/70 Room Air 01/22/17 12:00 105 01/22/17 08:00 70 01/22/17 08:00 97.3 73 19 136/69 Room Air 01/22/17 04:00 61 01/22/17 03:30 97.9 58 20 163/75 94 Room Air 01/22/17 00:00 59 01/21/17 23:18 98.2 50 18 129/58 91 Room Air 01/21/17 20:00 64 01/21/17 19:30 Room Air 21 01/21/17 19:30 92 Room Air 21 01/21/17 19:22 97.5 64 19 144/51 92 Room Air Laboratory Tests Test 01/22/17 04:30 White Blood Count 9.9 K/UL (4.8-10.8) Red Blood Count 2.88 M/UL (4.70-6.10) L Hemoglobin 9.3 G/DL (14.2-18.0) L Hematocrit 27.6 % (42.0-52.0) L Mean Corpuscular Volume 96 FL (80-99) Mean Corpuscular Hemoglobin 32.3 PG (27.0-31.0) H Mean Corpuscular Hemoglobin Concent 33.7 G/DL (32.0-36.0) Red Cell Distribution Width 12.4 % (11.6-14.8) Platelet Count 248 K/UL (150-450) Mean Platelet Volume 6.4 FL (6.5-10.1) L Neutrophils (%) (Auto) 79.6 % (45.0-75.0) H Lymphocytes (%) (Auto) 11.7 % (20.0-45.0) L Monocytes (%) (Auto) 5.4 % (1.0-10.0) Eosinophils (%) (Auto) 2.7 % (0.0-3.0) Basophils (%) (Auto) 0.6 % (0.0-2.0) Sodium Level 142 MMOL/L (136-145) Potassium Level 4.0 MMOL/L (3.5-5.1) Chloride Level 111 MMOL/L (98-107) H Carbon Dioxide Level 16 MMOL/L (21-32) L Anion Gap 15 mmol/L (5-15) Blood Urea Nitrogen 52 mg/dL (7-18) H Creatinine 3.9 MG/DL (0.55-1.30) H Estimat Glomerular Filtration Rate mL/min (>60) Glucose Level 133 MG/DL (74-106) H Hemoglobin A1c 7.0 % (4.3-6.0) H Lactic Acid Level 0.50 mmol/L (0.66-2.22) L Uric Acid 7.7 MG/DL (2.6-7.2) H Calcium Level 8.4 MG/DL (8.5-10.1) L Phosphorus Level 4.0 MG/DL (2.5-4.9) Magnesium Level 1.4 MG/DL (1.8-2.4) L Total Bilirubin 0.4 MG/DL (0.2-1.0) Gamma Glutamyl Transpeptidase 20 U/L (5-85) Aspartate Amino Transf (AST/SGOT) 29 U/L (15-37) Alanine Aminotransferase (ALT/SGPT) 21 U/L (12-78) Alkaline Phosphatase 84 U/L (46-116) Total Creatine Kinase 77 U/L (26-308) Troponin I 0.031 ng/mL (0.000-0.056) Pro-B-Type Natriuretic Peptide 3619 pg/mL (0-125) H Total Protein 5.6 G/DL (6.4-8.2) L Albumin 2.4 G/DL (3.4-5.0) L Globulin 3.2 g/dL Albumin/Globulin Ratio 0.8 (1.0-2.7) L Triglycerides Level 72 MG/DL (0-200) Cholesterol Level 82 MG/DL (< 200) LDL Cholesterol 41 mg/dL (<100) HDL Cholesterol 25 MG/DL (40-60) L Cholesterol/HDL Ratio 3.3 (3.3-4.4) Thyroid Stimulating Hormone (TSH) 3.439 uiU/mL (0.360-3.740) Microbiology Date/Time Source Procedure Growth Status 01/20/17 12:00 Blood Blood Culture - Preliminary NO GROWTH AFTER 24 HOURS Resulted 01/20/17 11:45 Blood Blood Culture - Preliminary NO GROWTH AFTER 24 HOURS Resulted 01/20/17 15:00 Stool Clostridium difficile Toxin Assay - Final Complete 01/20/17 15:00 Stool Received 01/20/17 13:50 Indwelling Cath Urine Culture - Preliminary Gram Positive Cocci Resulted SHASHI RANDALL Jan 22, 2017 16:02
--- NOTE | 2017-01-22 16:32 | General Progress Note ---
Assessment/Plan Assessment/Plan Assessment - N/V - resolved - HH - Hematochezia - diarrhea - C Diff (-) - lactic acidosis - thickened GB - OB (+) - DM - HTN - CRF Recommendations - supportive care - hydrate - watch H&H - EGD/Colon Monday Subjective Allergies: Coded Allergies: No Known Allergies (Unverified , 12/05/16) Subjective Feels better still with loose stool no abd pain tolerating PO Objective Last 24 Hour Vital Signs Date Time Temp Pulse Resp B/P (MAP) Pulse Ox O2 Delivery O2 Flow Rate FiO2 01/22/17 13:30 110 130/70 01/22/17 12:00 97.5 19 130/70 Room Air 01/22/17 12:00 105 01/22/17 08:00 70 01/22/17 08:00 97.3 73 19 136/69 Room Air 01/22/17 04:00 61 01/22/17 03:30 97.9 58 20 163/75 94 Room Air 01/22/17 00:00 59 01/21/17 23:18 98.2 50 18 129/58 91 Room Air 01/21/17 20:00 64 01/21/17 19:30 Room Air 21 01/21/17 19:30 92 Room Air 21 01/21/17 19:22 97.5 64 19 144/51 92 Room Air Laboratory Tests 01/22/17 04:30: White Blood Count 9.9, Red Blood Count 2.88L, Hemoglobin 9.3L, Hematocrit 27.6L , Mean Corpuscular Volume 96, Mean Corpuscular Hemoglobin 32.3H, Mean Corpuscular Hemoglobin Concent 33.7, Red Cell Distribution Width 12.4, Platelet Count 248, Mean Platelet Volume 6.4L, Neutrophils (%) (Auto) 79.6H, Lymphocytes (%) (Auto) 11.7L, Monocytes (%) (Auto) 5.4, Eosinophils (%) (Auto) 2.7, Basophils (%) (Auto) 0.6, Sodium Level 142, Potassium Level 4.0, Chloride Level 111H, Carbon Dioxide Level 16L, Anion Gap 15, Blood Urea Nitrogen 52H, Creatinine 3.9H, Estimat Glomerular Filtration Rate , Glucose Level 133H, Hemoglobin A1c 7.0H, Lactic Acid Level 0.50L, Uric Acid 7.7H, Calcium Level 8.4L , Phosphorus Level 4.0, Magnesium Level 1.4L, Total Bilirubin 0.4, Gamma Glutamyl Transpeptidase 20, Aspartate Amino Transf (AST/SGOT) 29, Alanine Aminotransferase (ALT/SGPT) 21, Alkaline Phosphatase 84, Total Creatine Kinase 77, Troponin I 0.031, Pro-B-Type Natriuretic Peptide 3619H, Total Protein 5.6L, Albumin 2.4L, Globulin 3.2, Albumin/Globulin Ratio 0.8L, Triglycerides Level 72 , Cholesterol Level 82, LDL Cholesterol 41, HDL Cholesterol 25L, Cholesterol/ HDL Ratio 3.3, Thyroid Stimulating Hormone (TSH) 3.439 Height (Feet): 6 Height (Inches): 7.00 Weight (Pounds): 178 Objective Elderly WM NCAT supple CTA RRR Soft flat, mild LLQ TTP no edema non focal KULWANT LIMA Jan 22, 2017 16:32
[2017-01-22] MEDS: Iron Sucrose 100 MG in NS 55 ML IVPB SCH (21:36)
[2017-01-22] MEDS: Metoprolol 25mg tab ORAL SCH (21:58)
[2017-01-23] VITALS (10 sets, daily range): BP systolic 102–177; BP diastolic 43–73
[2017-01-23] MEDS: NovoLOG Insulin Flexpen SUBQ SCH ×4 (06:30→21:54)
[2017-01-23 08:07] LABS: BASOPHILS % (AUTO) 0.7 % (0.0-2.0); EOSINOPHILS % (AUTO) 4.3 % (0.0-3.0); HEMATOCRIT 26.9 % (42.0-52.0); HEMOGLOBIN 9.2 G/DL (14.2-18.0); MEAN CORPUSCULAR VOLUME 96 FL (80-99); MONOCYTES % (AUTO) 7.8 % (1.0-10.0); NEUTROPHILS % (AUTO) 73.2 % (45.0-75.0); PLATELET COUNT 258 K/UL (150-450); RED BLOOD COUNT 2.81 M/UL (4.70-6.10); RED CELL DISTRIBUTION WIDTH 12.3 % (11.6-14.8); WHITE BLOOD COUNT 7.1 K/UL (4.8-10.8)
[2017-01-23 08:19] LABS: INR 1.1 (0.9-1.1)
[2017-01-23 08:31] LABS: PHOSPHORUS 3.2 MG/DL (2.5-4.9)
[2017-01-23 08:45] LABS: ALANINE AMINOTRANSFERASE 19 U/L (12-78); ALBUMIN 2.4 G/DL (3.4-5.0); ALBUMIN/GLOBULIN RATIO 0.9 (1.0-2.7); ALKALINE PHOSPHATASE 75 U/L (46-116); ANION GAP 14 mmol/L (5-15); ASPARTATE AMINO TRANSFERASE 26 U/L (15-37); BILIRUBIN,TOTAL 0.4 MG/DL (0.2-1.0); BLOOD UREA NITROGEN 43 mg/dL (7-18); CALCIUM 7.9 MG/DL (8.5-10.1); CARBON DIOXIDE 19 MMOL/L (21-32); CHLORIDE 111 MMOL/L (98-107); CREATININE 3.4 MG/DL (0.55-1.30); POTASSIUM 4.2 MMOL/L (3.5-5.1); SODIUM 144 MMOL/L (136-145)
--- NOTE | 2017-01-23 08:45 | Consultation ---
DATE OF CONSULTATION: 01/20/2017 INFECTIOUS DISEASES CONSULTATION CONSULTING PHYSICIAN: Loi Breen M.D. REFERRING PHYSICIAN: Meenakshi Irving NP REASON FOR CONSULTATION: Evaluation of the patient for sepsis, possible colitis, diarrhea, and antibiotic management. HISTORY OF PRESENT ILLNESS: The patient is an 86-year-old male with multiple medical problems as listed below, who was admitted to this medical center with abdominal vomiting and nausea. The patient was found to be dehydrated with low urine output. The patient was seen by urologist. Frias catheter was placed and this appears not to be due to urine obstruction and urine output is due to dehydration. The patient has a history of constipation until recently, took some stool softener, but since yesterday, the patient has developed multiple episodes of diarrhea. According to this is blood tinged. The patient has been started on IV antibiotics. Infectious Disease consultation has been requested for further evaluation of the patient and antibiotic management. PAST MEDICAL HISTORY: 1. Hypertension. 2. History of prostatic cancer. 3. History of urine incontinency, status post bladder sphincter placement. 4. Diabetes. 5. New onset atrial fibrillation. 6. CHF. 7. Thrombocytosis. 8. Diabetes. ALLERGIES: No known drug allergies. MEDICATIONS: IV vancomycin and Zosyn. SOCIAL HISTORY: The patient lives at home. FAMILY HISTORY: Not contributory. PHYSICAL EXAMINATION: VITAL SIGNS: Temperature 98, blood pressure 114/58, pulse 63, and respiratory rate 18. HEENT: No pale conjunctivae. No icterus. NECK: No lymphadenopathy. CHEST: Clear. HEART: S1 and S2. ABDOMEN: Soft. The patient has right lower quadrant tenderness. The patient also has a bladder sphincter device palpable in the right lower quadrant. NEUROLOGIC: Awake and alert. LABORATORY AND DIAGNOSTIC DATA: BUN 58 and creatinine 4. Liver function test unremarkable. White blood cells 22, hemoglobin 11, and platelets 250. CT of the abdomen, colitis/enteritis/sigmoid diverticulosis. Chest x-ray unremarkable. ASSESSMENT: 1. Leukocytosis. 2. Sepsis. 3. Bloody diarrhea/colitis, rule out ischemic, less likely Clostridium difficile. 4. Rule out Salmonella and shigella. 5. Acute renal insufficiency superimposed on chronic kidney disease. PLAN: 1. We will change antibiotic to Rocephin and Flagyl. 2. Monitor CBC. 3. Monitor BMP. 4. Blood culture. 5. Sputum culture. 6. Stool for C. diff. 7. Stool for ova and parasite. 8. We will follow GI recommendations. 9. Lactic acid. 10. Based on the patient's clinical course and labs, we will do further recommendation. Thank you, nurse practitioner, Meenakshi Irving, for allowing me to participate in the care of this patient. I will follow the patient with you during this hospitalization. Loi Breen M.D. DR: RUPERTO JOB#: [id number] CC:
[2017-01-23] MEDS: cefTRIAXone 2 GM in D5W 110 ML IVPB SCH (09:45)
[2017-01-23] MEDS: Amiodarone 200mg tab ORAL SCH (09:45)
[2017-01-23] MEDS: Metoprolol 25mg tab ORAL SCH ×2 (09:45→21:00)
--- NOTE | 2017-01-23 09:47 | Infectious Diseases Prog Note ---
Assessment/Plan Assessment/Plan A: UCx : Enterococcus ( Colonizer ) Sepsis, SP Leukocytosis improving Diarrhea ( Bloody ), ro Isch Colitis , Ro Salmoella, and Shigella CDiff Neg CT: Colitis vs Enteritis LACosis , SP US: Cholelithiasis. Portal and gallbladder wall thickening, likely an artifact of incomplete distention. DM HTN, Prostate Ca s/p radical prostatectomy Pacemaker P: Cont pt oin IV Rocephin and Flagyl d# 4 Monitor CBC Monitor BMP, Monitor Cx ( blood and Stool ) GI is following Colonoscopy : P Subjective Constitutional: Denies: no symptoms, fever, chills, fatigue, anorexia, drenching sweats, other Allergies: Coded Allergies: No Known Allergies (Unverified , 12/05/16) Subjective Afebrile Objective Vital Signs Last 24 Hour Vital Signs Date Time Temp Pulse Resp B/P (MAP) Pulse Ox O2 Delivery O2 Flow Rate FiO2 01/23/17 08:00 97.9 55 19 154/52 95 Nasal Cannula 3.0 01/23/17 04:00 57 01/23/17 04:00 98.4 54 20 125/65 Nasal Cannula 01/23/17 01:27 57 01/23/17 00:00 98.1 79 20 177/73 95 Nasal Cannula 3.0 01/23/17 00:00 58 01/22/17 21:58 75 138/70 01/22/17 20:00 65 01/22/17 20:00 98.8 60 22 175/69 98 Nasal Cannula 01/22/17 19:30 93 Room Air 21 01/22/17 19:30 Room Air 21 01/22/17 17:49 97.6 75 19 138/70 Room Air 01/22/17 16:00 49 01/22/17 16:00 97.7 72 19 132/78 Room Air 01/22/17 13:30 110 130/70 01/22/17 12:00 97.5 19 130/70 Room Air 01/22/17 12:00 105 Height (Feet): 5 Height (Inches): 11.00 Weight (Pounds): 178 HEENT: mucous membranes moist Respiratory/Chest: no respiratory distress Cardiovascular: regularly irregular Abdomen: no organomegaly Microbiology Date/Time Source Procedure Growth Status 01/20/17 12:00 Blood Blood Culture - Preliminary NO GROWTH AFTER 48 HOURS Resulted 01/20/17 11:45 Blood Blood Culture - Preliminary NO GROWTH AFTER 48 HOURS Resulted 01/20/17 15:00 Stool Clostridium difficile Toxin Assay - Final Complete 01/20/17 15:00 Stool Received 01/20/17 13:50 Indwelling Cath Urine Culture - Final Enterococcus Faecalis Complete Laboratory Tests Test 01/23/17 07:30 White Blood Count 7.1 K/UL (4.8-10.8) Red Blood Count 2.81 M/UL (4.70-6.10) L Hemoglobin 9.2 G/DL (14.2-18.0) L Hematocrit 26.9 % (42.0-52.0) L Mean Corpuscular Volume 96 FL (80-99) Mean Corpuscular Hemoglobin 32.9 PG (27.0-31.0) H Mean Corpuscular Hemoglobin Concent 34.3 G/DL (32.0-36.0) Red Cell Distribution Width 12.3 % (11.6-14.8) Platelet Count 258 K/UL (150-450) Mean Platelet Volume 6.3 FL (6.5-10.1) L Neutrophils (%) (Auto) 73.2 % (45.0-75.0) Lymphocytes (%) (Auto) 14.0 % (20.0-45.0) L Monocytes (%) (Auto) 7.8 % (1.0-10.0) Eosinophils (%) (Auto) 4.3 % (0.0-3.0) H Basophils (%) (Auto) 0.7 % (0.0-2.0) Prothrombin Time 11.0 SEC (9.30-11.50) Prothromb Time International Ratio 1.1 (0.9-1.1) Activated Partial Thromboplast Time 30 SEC (23-33) Sodium Level 144 MMOL/L (136-145) Potassium Level 4.2 MMOL/L (3.5-5.1) Chloride Level 111 MMOL/L (98-107) H Carbon Dioxide Level 19 MMOL/L (21-32) L Anion Gap 14 mmol/L (5-15) Blood Urea Nitrogen 43 mg/dL (7-18) H Creatinine 3.4 MG/DL (0.55-1.30) H Estimat Glomerular Filtration Rate mL/min (>60) Glucose Level 137 MG/DL (74-106) H Uric Acid 7.6 MG/DL (2.6-7.2) H Calcium Level 7.9 MG/DL (8.5-10.1) L Phosphorus Level 3.2 MG/DL (2.5-4.9) Magnesium Level 1.7 MG/DL (1.8-2.4) L Total Bilirubin 0.4 MG/DL (0.2-1.0) Aspartate Amino Transf (AST/SGOT) 26 U/L (15-37) Alanine Aminotransferase (ALT/SGPT) 19 U/L (12-78) Alkaline Phosphatase 75 U/L (46-116) Total Protein 5.0 G/DL (6.4-8.2) L Albumin 2.4 G/DL (3.4-5.0) L Globulin 2.6 g/dL Albumin/Globulin Ratio 0.9 (1.0-2.7) L Current Medications Medications (Trade) Dose Ordered Sig/Nitin Route PRN Reason Start Time Stop Time Status Last Admin Dose Admin Acetaminophen (Tylenol) 650 mg Q4H PRN ORAL fever 01/19/17 18:45 02/18/17 18:44 01/21/17 00:12 Amiodarone HCl (Cordarone) 200 mg DAILY ORAL 01/20/17 09:00 02/19/17 08:59 01/22/17 08:09 Atorvastatin Calcium (Lipitor) 20 mg BEDTIME ORAL 01/19/17 21:00 02/18/17 20:59 01/22/17 21:00 Ceftriaxone Sodium 2 gm/ Dextrose 110 ml @ 220 mls/hr DAILY IVPB 01/20/17 13:00 01/27/17 12:59 01/22/17 08:09 Dextrose (Dextrose 50%) STAT PRN IV Hypoglycemia 01/19/17 18:45 02/18/17 18:44 Diphenhydramine HCl (Benadryl) 25 mg Q6H PRN ORAL Itching/Pruritis 01/19/17 18:45 02/18/17 18:44 Insulin Aspart (NovoLOG) BEFORE MEALS AND HS SUBQ 01/19/17 21:00 02/18/17 20:59 01/22/17 17:15 Iron Sucrose 100 mg/Sodium Chloride 60 ml @ 240 mls/hr BEDTIME IVPB 01/21/17 21:00 01/25/17 21:14 01/22/17 21:36 Lansoprazole (Prevacid) 30 mg DAILY ORAL 01/22/17 09:00 02/21/17 08:59 01/22/17 08:08 Metoprolol Tartrate (Lopressor) 25 mg Q12HR ORAL 01/22/17 21:00 02/21/17 20:59 01/22/17 21:58 Metronidazole 100 ml @ 100 mls/hr Q8HR IVPB 01/20/17 14:00 01/27/17 13:59 01/23/17 06:04 Nitroglycerin (Ntg) 0.4 mg Q5M X 3 DOSES PRN SL Prn Chest Pain 01/19/17 18:45 02/18/17 18:44 Ondansetron HCl (Zofran) 4 mg Q6H PRN IVP Nausea & Vomiting 01/19/17 18:45 02/18/17 18:44 Polyethylene Glycol (Miralax) 17 gm HSPRN PRN ORAL Constipation 01/19/17 18:45 02/18/17 18:44 Sodium Chloride 1,000 ml @ 50 mls/hr Q20H IV 01/23/17 11:00 02/22/17 10:59 Temazepam (Restoril) 15 mg HSPRN PRN ORAL Insomnia 01/19/17 18:45 01/26/17 18:44 VALERIA PATIÑO M.D. Jan 23, 2017 09:47
[2017-01-23] MEDS ORDERED: Tubing IV Secondary IV ONE (10:38)
--- NOTE | 2017-01-23 11:18 | Nephrology Progress Note ---
Assessment/Plan Problem List: (1) ATN (acute tubular necrosis) (2) Hypotension (3) Renal insufficiency Assessment Renal failure , ATN , superimposed on chronic , Cr lower peaked 4.5 now 3.4 Hypotension on admit, Etiology?? Improved Anemia, likely chronic HTN DM Atrial fibrillation - h/o Prostate Ca and surgery- incontinent h/o Back surgery Plan Plan: Hydrate- Keep BP above 100 syst Avoid nephrotoxics Monitor renal parameters watch for CHF per orders Subjective ROS Limited/Unobtainable: No Constitutional: Reports: malaise, weakness Objective Objective Last 24 Hour Vital Signs Date Time Temp Pulse Resp B/P (MAP) Pulse Ox O2 Delivery O2 Flow Rate FiO2 01/23/17 09:45 55 154/52 01/23/17 08:00 97.9 55 19 154/52 95 Nasal Cannula 3.0 01/23/17 08:00 57 01/23/17 04:00 57 01/23/17 04:00 98.4 54 20 125/65 Nasal Cannula 01/23/17 01:27 57 01/23/17 00:00 98.1 79 20 177/73 95 Nasal Cannula 3.0 01/23/17 00:00 58 01/22/17 21:58 75 138/70 01/22/17 20:00 65 01/22/17 20:00 98.8 60 22 175/69 98 Nasal Cannula 01/22/17 19:30 93 Room Air 21 01/22/17 19:30 Room Air 21 01/22/17 17:49 97.6 75 19 138/70 Room Air 01/22/17 16:00 49 01/22/17 16:00 97.7 72 19 132/78 Room Air 01/22/17 13:30 110 130/70 01/22/17 12:00 97.5 19 130/70 Room Air 01/22/17 12:00 105 Intake and Output 01/23/17 01/24/17 19:00 07:00 Intake Total 260 ml Balance 260 ml IV Total 260 ml Laboratory Tests 01/23/17 07:30: White Blood Count 7.1, Red Blood Count 2.81L, Hemoglobin 9.2L, Hematocrit 26.9L , Mean Corpuscular Volume 96, Mean Corpuscular Hemoglobin 32.9H, Mean Corpuscular Hemoglobin Concent 34.3, Red Cell Distribution Width 12.3, Platelet Count 258, Mean Platelet Volume 6.3L, Neutrophils (%) (Auto) 73.2, Lymphocytes ( %) (Auto) 14.0L, Monocytes (%) (Auto) 7.8, Eosinophils (%) (Auto) 4.3H, Basophils (%) (Auto) 0.7, Prothrombin Time 11.0, Prothromb Time International Ratio 1.1, Activated Partial Thromboplast Time 30, Sodium Level 144, Potassium Level 4.2, Chloride Level 111H, Carbon Dioxide Level 19L, Anion Gap 14, Blood Urea Nitrogen 43H, Creatinine 3.4H, Estimat Glomerular Filtration Rate , Glucose Level 137H, Uric Acid 7.6H, Calcium Level 7.9L, Phosphorus Level 3.2, Magnesium Level 1.7L, Total Bilirubin 0.4, Aspartate Amino Transf (AST/SGOT) 26 , Alanine Aminotransferase (ALT/SGPT) 19, Alkaline Phosphatase 75, Total Protein 5.0L, Albumin 2.4L, Globulin 2.6, Albumin/Globulin Ratio 0.9L Height (Feet): 5 Height (Inches): 11.00 Weight (Pounds): 178 General Appearance: no apparent distress, lethargic, confused Respiratory/Chest: decreased breath sounds Abdomen: soft Objective other PE not changed MILKA VADLEZ Jan 23, 2017 11:18
--- NOTE | 2017-01-23 11:23 | Diagnostic Imaging Report ---
Indication: Abnormal renal function Technique: Renal ultrasound Findings: Kidneys: The kidneys are normal in size and echogenicity. There is no hydronephrosis. No perinephric fluid is identified. IVC: The visualized portion of the inferior vena cava appears normal. Bladder: Collapsed by Frias catheter. Impression: Normal kidneys. Bladder collapsed by Frias catheter.
--- NOTE | 2017-01-23 11:30 | Pre-Procedure Note/Attestation ---
Pre-Procedure Note/Attestation Complete Prior to Procedure Planned Procedure: not applicable Procedure Narrative: esophagogastroduodenoscopy and colonoscopy Indications for Procedure Pre-Operative Diagnosis: anemia Attestation I attest that I discussed the nature of the procedure; its benefits; risks and complications; and alternatives (and the risks and benefits of such alternatives ), prior to the procedure, with the patient (or the patient's legal guest relations representative). I attest that, if there was a reasonable possibility of needing a blood transfusion, the patient (or the patient's legal guest relations representative) was given the [facility] standardized written summary, pursuant to the Deon Alexandrea Blood Safety Act ([place] Health and Safety Code # 1645, as amended). I attest that I re-evaluated the patient just prior to the surgery and that there has been no change in the patient's H&P, except as documented below: DWIGHT RAE Jan 23, 2017 11:30
--- NOTE | 2017-01-23 11:30 | Pre-Procedure Note/Attestation ---
Pre-Procedure Note/Attestation Complete Prior to Procedure Planned Procedure: not applicable Procedure Narrative: esophagogastroduodenoscopy and colonoscopy Indications for Procedure Pre-Operative Diagnosis: anemia Attestation I attest that I discussed the nature of the procedure; its benefits; risks and complications; and alternatives (and the risks and benefits of such alternatives ), prior to the procedure, with the patient (or the patient's legal ocean import representative). I attest that, if there was a reasonable possibility of needing a blood transfusion, the patient (or the patient's legal ocean import representative) was given the [facility] standardized written summary, pursuant to the Deon Alexandrea Blood Safety Act ([place] Health and Safety Code # 1645, as amended). I attest that I re-evaluated the patient just prior to the surgery and that there has been no change in the patient's H&P, except as documented below: DWIGHT RAE Jan 23, 2017 11:30
--- NOTE | 2017-01-23 11:30 | Pre-Procedure Note/Attestation ---
Pre-Procedure Note/Attestation Complete Prior to Procedure Planned Procedure: not applicable Procedure Narrative: esophagogastroduodenoscopy and colonoscopy Indications for Procedure Pre-Operative Diagnosis: anemia Attestation I attest that I discussed the nature of the procedure; its benefits; risks and complications; and alternatives (and the risks and benefits of such alternatives ), prior to the procedure, with the patient (or the patient's legal high school admissions representative). I attest that, if there was a reasonable possibility of needing a blood transfusion, the patient (or the patient's legal high school admissions representative) was given the [facility] standardized written summary, pursuant to the Deon Alexandrea Blood Safety Act ([place] Health and Safety Code # 1645, as amended). I attest that I re-evaluated the patient just prior to the surgery and that there has been no change in the patient's H&P, except as documented below: DWIGHT RAE Jan 23, 2017 11:30
[2017-01-23] MEDS ORDERED: LR 1000ml 1,000 ML IVLG SCH (11:33)
--- NOTE | 2017-01-23 11:37 | Anethesia Preoperative Eval ---
Anesthesia Pre-op PMH/ROS General Date of Evaluation: Jan 23, 2017 Time of Evaluation: 11:54 Anesthesiologist: Damien ASA Score: ASA 3 Mallampati Score Class I : Soft palate, uvula, fauces, pillars visible Class II: Soft palate, uvula, fauces visible Class III: Soft palate, base of uvula visible Class IV: Only hard plate visible Mallampati Classification: Class II Surgeon: Yi Diagnosis: Abd Pain Surgical Procedure: EGD/Colonoscopy Anesthesia History: none Family History: no anesthesia problems Allergies: Coded Allergies: No Known Allergies (Unverified , 12/05/16) Medications: see eMAR Past Medical History Cardiovascular: Reports: HTN, arrhythmia - Pacemaker Gastrointestinal/Genitourinary: Reports: other - Prostate CA Endocrine: Reports: DM Anesthesia Pre-op Phys. Exam Physician Exam Last Vital Signs Date Time Temp Pulse Resp B/P (MAP) Pulse Ox O2 Delivery O2 Flow Rate FiO2 01/23/17 09:45 55 154/52 01/23/17 08:00 97.9 19 95 Nasal Cannula 3.0 01/22/17 19:30 21 Constitutional: NAD Neurologic: CN 2-12 intact Cardiovascular: RRR Respiratory: CTA Gastrointestinal: S/NT/ND Airway Exam Mallampati Score: Class II MO: full ROM: limited Teeth: missing, intact Anesthesia Pre-op A/P Labs Hematology Test 01/23/17 07:30 White Blood Count 7.1 K/UL (4.8-10.8) Red Blood Count 2.81 M/UL (4.70-6.10) L Hemoglobin 9.2 G/DL (14.2-18.0) L Hematocrit 26.9 % (42.0-52.0) L Mean Corpuscular Volume 96 FL (80-99) Mean Corpuscular Hemoglobin 32.9 PG (27.0-31.0) H Mean Corpuscular Hemoglobin Concent 34.3 G/DL (32.0-36.0) Red Cell Distribution Width 12.3 % (11.6-14.8) Platelet Count 258 K/UL (150-450) Mean Platelet Volume 6.3 FL (6.5-10.1) L Neutrophils (%) (Auto) 73.2 % (45.0-75.0) Lymphocytes (%) (Auto) 14.0 % (20.0-45.0) L Monocytes (%) (Auto) 7.8 % (1.0-10.0) Eosinophils (%) (Auto) 4.3 % (0.0-3.0) H Basophils (%) (Auto) 0.7 % (0.0-2.0) Coagulation Test 01/23/17 07:30 Prothrombin Time 11.0 SEC (9.30-11.50) Prothromb Time International Ratio 1.1 (0.9-1.1) Activated Partial Thromboplast Time 30 SEC (23-33) Chemistry Test 01/23/17 07:30 Sodium Level 144 MMOL/L (136-145) Potassium Level 4.2 MMOL/L (3.5-5.1) Chloride Level 111 MMOL/L (98-107) H Carbon Dioxide Level 19 MMOL/L (21-32) L Anion Gap 14 mmol/L (5-15) Blood Urea Nitrogen 43 mg/dL (7-18) H Creatinine 3.4 MG/DL (0.55-1.30) H Estimat Glomerular Filtration Rate mL/min (>60) Glucose Level 137 MG/DL (74-106) H Uric Acid 7.6 MG/DL (2.6-7.2) H Calcium Level 7.9 MG/DL (8.5-10.1) L Phosphorus Level 3.2 MG/DL (2.5-4.9) Magnesium Level 1.7 MG/DL (1.8-2.4) L Total Bilirubin 0.4 MG/DL (0.2-1.0) Aspartate Amino Transf (AST/SGOT) 26 U/L (15-37) Alanine Aminotransferase (ALT/SGPT) 19 U/L (12-78) Alkaline Phosphatase 75 U/L (46-116) Total Protein 5.0 G/DL (6.4-8.2) L Albumin 2.4 G/DL (3.4-5.0) L Globulin 2.6 g/dL Albumin/Globulin Ratio 0.9 (1.0-2.7) L Risk Assessment & Plan Assessment: ASA 3 Plan: GA Status Change Before Surgery: Checo Hoyos MD Jan 23, 2017 11:37
--- NOTE | 2017-01-23 11:40 | General Progress Note ---
Assessment/Plan Problem List: (1) Atrial fibrillation ICD Codes: I48.91 - Unspecified atrial fibrillation SNOMED: 26091853 (2) Colitis ICD Codes: K52.9 - Noninfective gastroenteritis and colitis, unspecified SNOMED: 15405673 (3) Blood in stool ICD Codes: K92.1 - Melena SNOMED: 92055050, 079457159 (4) Diabetes mellitus ICD Codes: E11.9 - Type 2 diabetes mellitus without complications SNOMED: 73573429 Assessment/Plan plan EGD and colonoscopy today Subjective ROS Limited/Unobtainable: Yes Allergies: Coded Allergies: No Known Allergies (Unverified , 12/05/16) Objective Last 24 Hour Vital Signs Date Time Temp Pulse Resp B/P (MAP) Pulse Ox O2 Delivery O2 Flow Rate FiO2 01/23/17 09:45 55 154/52 01/23/17 08:00 97.9 55 19 154/52 95 Nasal Cannula 3.0 01/23/17 08:00 57 01/23/17 04:00 57 01/23/17 04:00 98.4 54 20 125/65 Nasal Cannula 01/23/17 01:27 57 01/23/17 00:00 98.1 79 20 177/73 95 Nasal Cannula 3.0 01/23/17 00:00 58 01/22/17 21:58 75 138/70 01/22/17 20:00 65 01/22/17 20:00 98.8 60 22 175/69 98 Nasal Cannula 01/22/17 19:30 93 Room Air 21 01/22/17 19:30 Room Air 21 01/22/17 17:49 97.6 75 19 138/70 Room Air 01/22/17 16:00 49 01/22/17 16:00 97.7 72 19 132/78 Room Air 01/22/17 13:30 110 130/70 01/22/17 12:00 97.5 19 130/70 Room Air 01/22/17 12:00 105 Intake and Output 01/23/17 01/24/17 19:00 07:00 Intake Total 260 ml Balance 260 ml IV Total 260 ml Laboratory Tests 01/23/17 07:30: White Blood Count 7.1, Red Blood Count 2.81L, Hemoglobin 9.2L, Hematocrit 26.9L , Mean Corpuscular Volume 96, Mean Corpuscular Hemoglobin 32.9H, Mean Corpuscular Hemoglobin Concent 34.3, Red Cell Distribution Width 12.3, Platelet Count 258, Mean Platelet Volume 6.3L, Neutrophils (%) (Auto) 73.2, Lymphocytes ( %) (Auto) 14.0L, Monocytes (%) (Auto) 7.8, Eosinophils (%) (Auto) 4.3H, Basophils (%) (Auto) 0.7, Prothrombin Time 11.0, Prothromb Time International Ratio 1.1, Activated Partial Thromboplast Time 30, Sodium Level 144, Potassium Level 4.2, Chloride Level 111H, Carbon Dioxide Level 19L, Anion Gap 14, Blood Urea Nitrogen 43H, Creatinine 3.4H, Estimat Glomerular Filtration Rate , Glucose Level 137H, Uric Acid 7.6H, Calcium Level 7.9L, Phosphorus Level 3.2, Magnesium Level 1.7L, Total Bilirubin 0.4, Aspartate Amino Transf (AST/SGOT) 26 , Alanine Aminotransferase (ALT/SGPT) 19, Alkaline Phosphatase 75, Total Protein 5.0L, Albumin 2.4L, Globulin 2.6, Albumin/Globulin Ratio 0.9L Height (Feet): 5 Height (Inches): 11.00 Weight (Pounds): 178 General Appearance: no apparent distress EENT: normal ENT inspection Neck: supple Cardiovascular: normal rate Respiratory/Chest: decreased breath sounds Abdomen: normal bowel sounds, non tender, soft Extremities: non-tender DWIGHT RAE Jan 23, 2017 11:40
--- NOTE | 2017-01-23 11:40 | General Progress Note ---
Assessment/Plan Problem List: (1) Atrial fibrillation ICD Codes: I48.91 - Unspecified atrial fibrillation SNOMED: 39102532 (2) Colitis ICD Codes: K52.9 - Noninfective gastroenteritis and colitis, unspecified SNOMED: 82587315 (3) Blood in stool ICD Codes: K92.1 - Melena SNOMED: 85167161, 667172966 (4) Diabetes mellitus ICD Codes: E11.9 - Type 2 diabetes mellitus without complications SNOMED: 55450057 Assessment/Plan plan EGD and colonoscopy today Subjective ROS Limited/Unobtainable: Yes Allergies: Coded Allergies: No Known Allergies (Unverified , 12/05/16) Objective Last 24 Hour Vital Signs Date Time Temp Pulse Resp B/P (MAP) Pulse Ox O2 Delivery O2 Flow Rate FiO2 01/23/17 09:45 55 154/52 01/23/17 08:00 97.9 55 19 154/52 95 Nasal Cannula 3.0 01/23/17 08:00 57 01/23/17 04:00 57 01/23/17 04:00 98.4 54 20 125/65 Nasal Cannula 01/23/17 01:27 57 01/23/17 00:00 98.1 79 20 177/73 95 Nasal Cannula 3.0 01/23/17 00:00 58 01/22/17 21:58 75 138/70 01/22/17 20:00 65 01/22/17 20:00 98.8 60 22 175/69 98 Nasal Cannula 01/22/17 19:30 93 Room Air 21 01/22/17 19:30 Room Air 21 01/22/17 17:49 97.6 75 19 138/70 Room Air 01/22/17 16:00 49 01/22/17 16:00 97.7 72 19 132/78 Room Air 01/22/17 13:30 110 130/70 01/22/17 12:00 97.5 19 130/70 Room Air 01/22/17 12:00 105 Intake and Output 01/23/17 01/24/17 19:00 07:00 Intake Total 260 ml Balance 260 ml IV Total 260 ml Laboratory Tests 01/23/17 07:30: White Blood Count 7.1, Red Blood Count 2.81L, Hemoglobin 9.2L, Hematocrit 26.9L , Mean Corpuscular Volume 96, Mean Corpuscular Hemoglobin 32.9H, Mean Corpuscular Hemoglobin Concent 34.3, Red Cell Distribution Width 12.3, Platelet Count 258, Mean Platelet Volume 6.3L, Neutrophils (%) (Auto) 73.2, Lymphocytes ( %) (Auto) 14.0L, Monocytes (%) (Auto) 7.8, Eosinophils (%) (Auto) 4.3H, Basophils (%) (Auto) 0.7, Prothrombin Time 11.0, Prothromb Time International Ratio 1.1, Activated Partial Thromboplast Time 30, Sodium Level 144, Potassium Level 4.2, Chloride Level 111H, Carbon Dioxide Level 19L, Anion Gap 14, Blood Urea Nitrogen 43H, Creatinine 3.4H, Estimat Glomerular Filtration Rate , Glucose Level 137H, Uric Acid 7.6H, Calcium Level 7.9L, Phosphorus Level 3.2, Magnesium Level 1.7L, Total Bilirubin 0.4, Aspartate Amino Transf (AST/SGOT) 26 , Alanine Aminotransferase (ALT/SGPT) 19, Alkaline Phosphatase 75, Total Protein 5.0L, Albumin 2.4L, Globulin 2.6, Albumin/Globulin Ratio 0.9L Height (Feet): 5 Height (Inches): 11.00 Weight (Pounds): 178 General Appearance: no apparent distress EENT: normal ENT inspection Neck: supple Cardiovascular: normal rate Respiratory/Chest: decreased breath sounds Abdomen: normal bowel sounds, non tender, soft Extremities: non-tender DWIGHT RAE Jan 23, 2017 11:40
--- NOTE | 2017-01-23 11:40 | General Progress Note ---
Assessment/Plan Problem List: (1) Atrial fibrillation ICD Codes: I48.91 - Unspecified atrial fibrillation SNOMED: 32960386 (2) Colitis ICD Codes: K52.9 - Noninfective gastroenteritis and colitis, unspecified SNOMED: 82103034 (3) Blood in stool ICD Codes: K92.1 - Melena SNOMED: 74215657, 963490486 (4) Diabetes mellitus ICD Codes: E11.9 - Type 2 diabetes mellitus without complications SNOMED: 67843829 Assessment/Plan plan EGD and colonoscopy today Subjective ROS Limited/Unobtainable: Yes Allergies: Coded Allergies: No Known Allergies (Unverified , 12/05/16) Objective Last 24 Hour Vital Signs Date Time Temp Pulse Resp B/P (MAP) Pulse Ox O2 Delivery O2 Flow Rate FiO2 01/23/17 09:45 55 154/52 01/23/17 08:00 97.9 55 19 154/52 95 Nasal Cannula 3.0 01/23/17 08:00 57 01/23/17 04:00 57 01/23/17 04:00 98.4 54 20 125/65 Nasal Cannula 01/23/17 01:27 57 01/23/17 00:00 98.1 79 20 177/73 95 Nasal Cannula 3.0 01/23/17 00:00 58 01/22/17 21:58 75 138/70 01/22/17 20:00 65 01/22/17 20:00 98.8 60 22 175/69 98 Nasal Cannula 01/22/17 19:30 93 Room Air 21 01/22/17 19:30 Room Air 21 01/22/17 17:49 97.6 75 19 138/70 Room Air 01/22/17 16:00 49 01/22/17 16:00 97.7 72 19 132/78 Room Air 01/22/17 13:30 110 130/70 01/22/17 12:00 97.5 19 130/70 Room Air 01/22/17 12:00 105 Intake and Output 01/23/17 01/24/17 19:00 07:00 Intake Total 260 ml Balance 260 ml IV Total 260 ml Laboratory Tests 01/23/17 07:30: White Blood Count 7.1, Red Blood Count 2.81L, Hemoglobin 9.2L, Hematocrit 26.9L , Mean Corpuscular Volume 96, Mean Corpuscular Hemoglobin 32.9H, Mean Corpuscular Hemoglobin Concent 34.3, Red Cell Distribution Width 12.3, Platelet Count 258, Mean Platelet Volume 6.3L, Neutrophils (%) (Auto) 73.2, Lymphocytes ( %) (Auto) 14.0L, Monocytes (%) (Auto) 7.8, Eosinophils (%) (Auto) 4.3H, Basophils (%) (Auto) 0.7, Prothrombin Time 11.0, Prothromb Time International Ratio 1.1, Activated Partial Thromboplast Time 30, Sodium Level 144, Potassium Level 4.2, Chloride Level 111H, Carbon Dioxide Level 19L, Anion Gap 14, Blood Urea Nitrogen 43H, Creatinine 3.4H, Estimat Glomerular Filtration Rate , Glucose Level 137H, Uric Acid 7.6H, Calcium Level 7.9L, Phosphorus Level 3.2, Magnesium Level 1.7L, Total Bilirubin 0.4, Aspartate Amino Transf (AST/SGOT) 26 , Alanine Aminotransferase (ALT/SGPT) 19, Alkaline Phosphatase 75, Total Protein 5.0L, Albumin 2.4L, Globulin 2.6, Albumin/Globulin Ratio 0.9L Height (Feet): 5 Height (Inches): 11.00 Weight (Pounds): 178 General Appearance: no apparent distress EENT: normal ENT inspection Neck: supple Cardiovascular: normal rate Respiratory/Chest: decreased breath sounds Abdomen: normal bowel sounds, non tender, soft Extremities: non-tender DWIGHT RAE Jan 23, 2017 11:40
[2017-01-23] MEDS ORDERED: NS 500ML IV ONE (11:45)
[2017-01-23] MEDS ORDERED: Metoclopramide 10mg/2ml Inj IVP PRN (11:45)
[2017-01-23] MEDS ORDERED: Ketorolac 30mg Inj IV PRN (11:45)
[2017-01-23] MEDS ORDERED: LORazepam Inj 2mg/ml 1ml IV PRN (11:45)
[2017-01-23] MEDS ORDERED: Ketorolac 60mg Inj IV PRN (11:45)
[2017-01-23] MEDS ORDERED: Norco 7.5mg/325mg tab ORAL PRN (11:45)
[2017-01-23] MEDS ORDERED: Atropine Inj 1mg/10ml Syr IV PRN (11:45)
[2017-01-23] MEDS ORDERED: Norco 5mg/325mg tab ORAL PRN (11:45)
[2017-01-23] MEDS ORDERED: DiphenhydrAMINE 50mg/ml Inj IVP PRN (11:45)
[2017-01-23] MEDS ORDERED: fentaNYL 100 mcg/2 mL IV PRN (11:45)
[2017-01-23] MEDS ORDERED: Midazolam 2mg/2ml Inj IVP PRN (11:45)
[2017-01-23] MEDS ORDERED: oxyCODONE HCL/Acetaminophen 5/325mg ORAL PRN (11:45)
[2017-01-23] MEDS ORDERED: Hydromorphone 0.5mg/0.5ml inj IVP PRN (11:45)
[2017-01-23] MEDS ORDERED: LR 1000ml ONE (12:00)
[2017-01-23] MEDS ORDERED: Propofol 200mg/20ml IV ONE (12:00)
[2017-01-23] MEDS ORDERED: Alfentanil 2ml Inj ONE (12:00)
[2017-01-23] MEDS ORDERED: Midazolam 2mg/2ml Inj ONE ×2 (12:00)
[2017-01-23] MEDS ORDERED: Lidocaine 1% MPF 10mg/ml 5ml ONE (12:00)
--- NOTE | 2017-01-23 12:15 | 48 Hour Post Anesthesia Eval ---
Post Anesthesia Evaluation Procedure: EGD/Colonoscopy Date of Evaluation: Jan 23, 2017 Time of Evaluation: 14:52 Blood Pressure Systolic: 162 0: 78 Pulse Rate: 57 Respiratory Rate: 18 Temperature (Fahrenheit): 98.4 O2 Sat by Pulse Oximetry: 97 Airway: patent Nausea: No Vomiting: No Pain Intensity: 1 Hydration Status: adequate Cardiopulmonary Status: Stable Mental Status/LOC: patient returned to baseline Follow-up Care/Observations: 0 Post-Anesthesia Complications: 0 Follow-up care needed: N/A Checo Quezada MD Jan 23, 2017 12:15
--- NOTE | 2017-01-23 12:15 | Immediate Post-Op Evaluation ---
Immediate Post-Op Evalulation Immediate Post-Op Evalulation Procedure: EGD/Colonoscopy Date of Evaluation: Jan 23, 2017 Time of Evaluation: 12:47 IV Fluids: 300 LR Blood Products: 0 Estimated Blood Loss: 1 Urinary Output: 0 Blood Pressure Systolic: 102 Blood Pressure Diastolic: 46 Pulse Rate: 47 Respiratory Rate: 16 O2 Sat by Pulse Oximetry: 99 Temperature (Fahrenheit): 97.8 Pain Score (1-10): 1 Nausea: No Vomiting: No Complications 0 Patient Status: awake, reacts, patent, none Hydration Status: adequate Checo Quezada MD Jan 23, 2017 12:15
--- NOTE | 2017-01-23 12:24 | Endoscopy Procedure Note ---
Endoscopy Procedure Note Indication for Procedure: anemia Procedures Performed: EGD, colonoscopy Operative Findings/Diagnosis: gastric polyp, hemorrhoids, ischemic colitis Specimen: yes Pt Tolerated Procedure Well: Yes Estimated Blood Loss: none Anesthesiologist: lurdes Anesthesia: MAC Implant(s) used?: No 50 yrs or older w/o bx or poly: Not Applicable 10yrs. F/U not recommended: Not Applicable DWIGHT RAE Jan 23, 2017 12:24
--- NOTE | 2017-01-23 15:46 | Pulmonology Progress Note ---
Assessment/Plan Problems: (1) Septic shock (2) Acute encephalopathy (3) ATN (acute tubular necrosis) (4) Atrial fibrillation (5) Urinary incontinence (6) Colitis (7) Diabetes mellitus Assessment/Plan renal function improving GI procedures done check electrolytes check cultures heart rate controlled f/u cardio recommendations. Subjective ROS Limited/Unobtainable: No Constitutional: Reports: no symptoms HEENT: Repors: no symptoms Respiratory: Reports: no symptoms Allergies: Coded Allergies: No Known Allergies (Unverified , 12/05/16) Objective Last 24 Hour Vital Signs Date Time Temp Pulse Resp B/P (MAP) Pulse Ox O2 Delivery O2 Flow Rate FiO2 01/23/17 12:56 97.6 52 20 143/54 100 Nasal Cannula 3.0 01/23/17 12:45 52 21 140/55 100 Nasal Cannula 3.0 01/23/17 12:40 51 18 128/53 99 Simple Mask 6.0 01/23/17 12:37 97.8 47 14 102/43 99 Simple Mask 6.0 01/23/17 12:37 57 18 97 01/23/17 12:36 47 16 99 01/23/17 12:00 55 01/23/17 12:00 97.7 51 19 149/56 96 Nasal Cannula 2.0 01/23/17 09:45 55 154/52 01/23/17 08:00 97.9 55 19 154/52 95 Nasal Cannula 3.0 01/23/17 08:00 57 01/23/17 04:00 57 01/23/17 04:00 98.4 54 20 125/65 Nasal Cannula 01/23/17 01:27 57 01/23/17 00:00 98.1 79 20 177/73 95 Nasal Cannula 3.0 01/23/17 00:00 58 01/22/17 21:58 75 138/70 01/22/17 20:00 65 01/22/17 20:00 98.8 60 22 175/69 98 Nasal Cannula 01/22/17 19:30 93 Room Air 21 01/22/17 19:30 Room Air 21 01/22/17 17:49 97.6 75 19 138/70 Room Air 01/22/17 16:00 49 01/22/17 16:00 97.7 72 19 132/78 Room Air Intake and Output 01/23/17 01/24/17 19:00 07:00 Intake Total 685 ml Output Total 0 ml Balance 685 ml IV Total 685 ml Estimated Blood Loss 0 ml General Appearance: WD/WN HEENT: normocephalic, atraumatic Respiratory/Chest: chest wall non-tender, lungs clear Cardiovascular: normal peripheral pulses, normal rate Abdomen: soft, non tender, no organomegaly Extremities: no cyanosis, no clubbing Skin: no rash 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 Lymphatic: no neck adenopathy Laboratory Tests 01/23/17 07:30: White Blood Count 7.1, Red Blood Count 2.81L, Hemoglobin 9.2L, Hematocrit 26.9L , Mean Corpuscular Volume 96, Mean Corpuscular Hemoglobin 32.9H, Mean Corpuscular Hemoglobin Concent 34.3, Red Cell Distribution Width 12.3, Platelet Count 258, Mean Platelet Volume 6.3L, Neutrophils (%) (Auto) 73.2, Lymphocytes ( %) (Auto) 14.0L, Monocytes (%) (Auto) 7.8, Eosinophils (%) (Auto) 4.3H, Basophils (%) (Auto) 0.7, Prothrombin Time 11.0, Prothromb Time International Ratio 1.1, Activated Partial Thromboplast Time 30, Sodium Level 144, Potassium Level 4.2, Chloride Level 111H, Carbon Dioxide Level 19L, Anion Gap 14, Blood Urea Nitrogen 43H, Creatinine 3.4H, Estimat Glomerular Filtration Rate , Glucose Level 137H, Uric Acid 7.6H, Calcium Level 7.9L, Phosphorus Level 3.2, Magnesium Level 1.7L, Total Bilirubin 0.4, Aspartate Amino Transf (AST/SGOT) 26 , Alanine Aminotransferase (ALT/SGPT) 19, Alkaline Phosphatase 75, Total Protein 5.0L, Albumin 2.4L, Globulin 2.6, Albumin/Globulin Ratio 0.9L Current Medications Medications (Trade) Dose Ordered Sig/Nitin Route PRN Reason Start Time Stop Time Status Last Admin Dose Admin Acetaminophen (Tylenol) 650 mg Q4H PRN ORAL fever 01/19/17 18:45 02/18/17 18:44 01/21/17 00:12 Acetaminophen/ Hydrocodone Bitart ([place] 5/325) 1 tab Q1H PRN ORAL Mild Pain (Pain Scale 1-3) 01/23/17 11:45 01/23/17 17:45 Acetaminophen/ Hydrocodone Bitart ([place] 7.5/325) 1 ea Q1H PRN ORAL Moderate Pain (Pain Scale 4-6) 01/23/17 11:45 01/23/17 17:45 Al Hydroxide/Mg Hydroxide (Mylanta) 15 ml Q1H PRN ORAL gi upset 01/23/17 11:45 01/23/17 17:45 Amiodarone HCl (Cordarone) 200 mg DAILY ORAL 01/20/17 09:00 02/19/17 08:59 01/23/17 09:45 Atorvastatin Calcium (Lipitor) 20 mg BEDTIME ORAL 01/23/17 21:00 02/18/17 20:59 Atropine Sulfate (Atropine) 0.5 mg Q5M PRN IV HR <40 01/23/17 11:45 01/23/17 17:45 Ceftriaxone Sodium 2 gm/ Dextrose 110 ml @ 220 mls/hr DAILY IVPB 01/20/17 13:00 01/24/17 12:59 01/23/17 09:45 Ceftriaxone Sodium 2 gm/ Sodium Chloride 110 ml @ 220 mls/hr Q24H IVPB 01/24/17 13:00 01/31/17 12:59 Dextrose (Dextrose 50%) STAT PRN IV Hypoglycemia 01/19/17 18:45 02/18/17 18:44 Diphenhydramine HCl (Benadryl) 25 mg Q15M PRN IVP Itching 01/23/17 11:45 01/23/17 17:45 Diphenhydramine HCl (Benadryl) 25 mg Q6H PRN ORAL Itching/Pruritis 01/19/17 18:45 02/18/17 18:44 Fentanyl Citrate (Sublimaze 100 mcg/2 mL) 25 mcg Q10M PRN IV Moderate Pain (Pain Scale 4-6) 01/23/17 11:45 01/23/17 17:45 Hydralazine HCl (Apresoline) 5 mg Q30M PRN IV SBP>160 / DBP>90 01/23/17 11:45 01/23/17 17:45 Hydromorphone HCl (Dilaudid) 0.5 mg Q15M PRN IVP Severe Pain (Pain Scale 7-10) 01/23/17 11:45 01/23/17 17:45 Insulin Aspart (NovoLOG) BEFORE MEALS AND HS SUBQ 01/19/17 21:00 02/18/17 20:59 01/22/17 17:15 Iron Sucrose 100 mg/Sodium Chloride 60 ml @ 240 mls/hr BEDTIME IVPB 01/21/17 21:00 01/25/17 21:14 01/22/17 21:36 Ketorolac Tromethamine (Toradol 30mg) 15 mg Q1H PRN IV Moderate Breakthru Pain (5-7) 01/23/17 11:45 01/23/17 17:45 Ketorolac Tromethamine (Toradol) 60 mg Q1H PRN IV Severe Breakthru Pain (>7) 01/23/17 11:45 01/23/17 17:45 Lansoprazole (Prevacid) 30 mg DAILY ORAL 01/22/17 09:00 02/21/17 08:59 01/23/17 09:45 Lorazepam (Ativan 2mg/ml 1ml) 1 mg Q15M PRN IV For Anxiety 01/23/17 11:45 01/23/17 17:45 Magnesium Sulfate 100 ml @ 100 mls/hr ONCE ONCE IVPB 01/23/17 18:00 01/23/17 18:59 Metoclopramide HCl (Reglan) 10 mg Q1H PRN IVP Nausea & Vomiting 01/23/17 11:45 01/23/17 17:45 Metoprolol Tartrate (Lopressor) 25 mg Q12HR ORAL 01/22/17 21:00 02/21/17 20:59 01/23/17 09:45 Metronidazole 100 ml @ 100 mls/hr Q8HR IVPB 01/20/17 14:00 01/27/17 13:59 01/23/17 14:03 Midazolam HCl (Versed 2mg/2ml vial) 1 mg Q15M PRN IVP For Anxiety 01/23/17 11:45 01/23/17 17:45 Nitroglycerin (Ntg) 0.4 mg Q5M X 3 DOSES PRN SL Prn Chest Pain 01/19/17 18:45 02/18/17 18:44 Ondansetron HCl (Zofran) 4 mg Q1H PRN IVP Nausea & Vomiting 01/23/17 11:45 01/23/17 17:45 Ondansetron HCl (Zofran) 4 mg Q6H PRN IVP Nausea & Vomiting 01/19/17 18:45 02/18/17 18:44 Oxycodone/ Acetaminophen (Percocet 5-325) 1 tab Q1H PRN ORAL Severe Pain (Pain Scale 7-10) 01/23/17 11:45 01/23/17 17:45 Polyethylene Glycol (Miralax) 17 gm HSPRN PRN ORAL Constipation 01/19/17 18:45 02/18/17 18:44 Sodium Chloride 1,000 ml @ 50 mls/hr Q20H IV 01/23/17 11:00 02/22/17 10:59 01/23/17 10:00 Temazepam (Restoril) 15 mg HSPRN PRN ORAL Insomnia 01/19/17 18:45 01/26/17 18:44 ENOC BUSCH Jan 23, 2017 15:45
--- NOTE | 2017-01-23 16:00 | Procedure Note ---
DATE OF PROCEDURE: 01/23/2017 SURGEON: Terrance Richmond M.D. PROCEDURE: Upper endoscopy with biopsy and colonoscopy with biopsy. ANESTHESIOLOGIST: Per Dr. Quezada. INSTRUMENT: Olympus adult flexible upper endoscope and colonoscope. INDICATION: Anemia and rectal bleeding. REASON FOR PROCEDURE: The procedure, risks, benefits, and possible consequences, including hemorrhage, aspiration, perforation and infection, and alternative treatments, were explained to the patient/legal guardian by Dr. Terrance Richmond and the patient/legal guardian understood and accepted these risks. PROCEDURE IN DETAIL: After informed consent was obtained and the patient was adequately sedated, Olympus upper endoscope was advanced from mouth into the second portion of the duodenum and retroflexion was performed in the stomach. The patient has evidence of duodenal diverticulum. The patient had numerous polyps in the body of the stomach highly suspicious for fundic gland polyps, one of them was biopsied for diagnosis. The patient also had evidence of diffuse gastritis. Random biopsy from antrum was obtained to rule out H. pylori infection. At this time, the upper endoscope was retrieved. The patient was turned over for colonoscopy. First, a rectal exam was performed, which was normal. Then, the scope was advanced from the rectum into the cecum. Examination of the cecum and ascending colon was incomplete given the poor prep. The patient has evidence of ischemic changes in the colon at about 40 cm from the anal verge up to about 50 cm where semi-circumferential ulceration and edema and erythema of the mucosa which was biopsied for diagnosis. The patient has evidence of significant diverticulosis in the sigmoid area with some peridiverticulitis and colitis. The patient had evidence of hemorrhoids on retroflexion. SUMMARY OF FINDINGS: 1. Duodenal diverticulum. 2. Gastritis, status post biopsy. 3. Numerous gastric polyps, highly suspicious for fundic gland polyps status post biopsy. 4. Ischemic colitis status post biopsy. 5. Peridiverticulitis and colitis. 6. Diverticulosis. 7. Internal hemorrhoids. RECOMMENDATIONS: 1. Start the patient on antibiotics. 2. Follow biopsy results. 3. Advance diet. 4. Monitor labs. I want to thank, Dr. Nickerson, for this kind referral. Terrance Fredi Richmond DR: Tatiana JOB#: [id number] CC: Lilli Nickerson M.D.; Fax#: [phone]
--- NOTE | 2017-01-23 17:39 | Cardiology Progress Note ---
Assessment/Plan Assessment/Plan 1. Dehydration 2. Prior episodes of atrial fibrillation paroxysmal 3. Diabetes mellitus. 4. Hypertension. 5. Chronic renal insufficiency. 6. Anemia. 7. History of bacteremia. 8. Prostate cancer status post resection. tyrop neg cr little better he feels better tel sinus ekg sinus needs eliquis resumed c diff neg blood cx neg Subjective Cardiovascular: Denies: chest pain, lightheadedness, palpitations Respiratory: Denies: SOB with excertion Gastrointestinal/Abdominal: Denies: abdominal pain, diarrhea Genitourinary: Denies: burning Objective Last 24 Hour Vital Signs Date Time Temp Pulse Resp B/P (MAP) Pulse Ox O2 Delivery O2 Flow Rate FiO2 01/23/17 16:00 54 01/23/17 15:55 97.5 51 21 168/63 95 Nasal Cannula 3.0 01/23/17 12:56 97.6 52 20 143/54 100 Nasal Cannula 3.0 01/23/17 12:45 52 21 140/55 100 Nasal Cannula 3.0 01/23/17 12:40 51 18 128/53 99 Simple Mask 6.0 01/23/17 12:37 97.8 47 14 102/43 99 Simple Mask 6.0 01/23/17 12:37 57 18 97 01/23/17 12:36 47 16 99 01/23/17 12:00 55 01/23/17 12:00 97.7 51 19 149/56 96 Nasal Cannula 2.0 01/23/17 09:45 55 154/52 01/23/17 08:00 97.9 55 19 154/52 95 Nasal Cannula 3.0 01/23/17 08:00 57 01/23/17 04:00 57 01/23/17 04:00 98.4 54 20 125/65 Nasal Cannula 01/23/17 01:27 57 01/23/17 00:00 98.1 79 20 177/73 95 Nasal Cannula 3.0 01/23/17 00:00 58 01/22/17 21:58 75 138/70 01/22/17 20:00 65 01/22/17 20:00 98.8 60 22 175/69 98 Nasal Cannula 01/22/17 19:30 93 Room Air 21 01/22/17 19:30 Room Air 21 01/22/17 17:49 97.6 75 19 138/70 Room Air General Appearance: no apparent distress, alert Neck: supple Cardiovascular: normal rate Respiratory/Chest: lungs clear Abdomen: normal bowel sounds, non tender, soft Extremities: no swelling Intake and Output 01/23/17 01/24/17 19:00 07:00 Intake Total 935 ml Output Total 0 ml Balance 935 ml IV Total 935 ml Estimated Blood Loss 0 ml Laboratory Tests Test 01/23/17 07:30 White Blood Count 7.1 K/UL (4.8-10.8) Red Blood Count 2.81 M/UL (4.70-6.10) L Hemoglobin 9.2 G/DL (14.2-18.0) L Hematocrit 26.9 % (42.0-52.0) L Mean Corpuscular Volume 96 FL (80-99) Mean Corpuscular Hemoglobin 32.9 PG (27.0-31.0) H Mean Corpuscular Hemoglobin Concent 34.3 G/DL (32.0-36.0) Red Cell Distribution Width 12.3 % (11.6-14.8) Platelet Count 258 K/UL (150-450) Mean Platelet Volume 6.3 FL (6.5-10.1) L Neutrophils (%) (Auto) 73.2 % (45.0-75.0) Lymphocytes (%) (Auto) 14.0 % (20.0-45.0) L Monocytes (%) (Auto) 7.8 % (1.0-10.0) Eosinophils (%) (Auto) 4.3 % (0.0-3.0) H Basophils (%) (Auto) 0.7 % (0.0-2.0) Prothrombin Time 11.0 SEC (9.30-11.50) Prothromb Time International Ratio 1.1 (0.9-1.1) Activated Partial Thromboplast Time 30 SEC (23-33) Sodium Level 144 MMOL/L (136-145) Potassium Level 4.2 MMOL/L (3.5-5.1) Chloride Level 111 MMOL/L (98-107) H Carbon Dioxide Level 19 MMOL/L (21-32) L Anion Gap 14 mmol/L (5-15) Blood Urea Nitrogen 43 mg/dL (7-18) H Creatinine 3.4 MG/DL (0.55-1.30) H Estimat Glomerular Filtration Rate mL/min (>60) Glucose Level 137 MG/DL (74-106) H Uric Acid 7.6 MG/DL (2.6-7.2) H Calcium Level 7.9 MG/DL (8.5-10.1) L Phosphorus Level 3.2 MG/DL (2.5-4.9) Magnesium Level 1.7 MG/DL (1.8-2.4) L Total Bilirubin 0.4 MG/DL (0.2-1.0) Aspartate Amino Transf (AST/SGOT) 26 U/L (15-37) Alanine Aminotransferase (ALT/SGPT) 19 U/L (12-78) Alkaline Phosphatase 75 U/L (46-116) Total Protein 5.0 G/DL (6.4-8.2) L Albumin 2.4 G/DL (3.4-5.0) L Globulin 2.6 g/dL Albumin/Globulin Ratio 0.9 (1.0-2.7) L Free Prostate Specific Antigen Pending Percent Free Prostate Specific Ag Pending Prostate Specific Antigen Total Pending ARACELI PAULSON Jan 23, 2017 17:39
--- NOTE | 2017-01-23 19:32 | Cardiology Report ---
APPROVED REPORT EXAM: Two-dimensional and M-mode echocardiogram with Doppler and color Doppler. INDICATION Atrial Fibrillation M-Mode DIMENSIONS IVSd1.3 (0.7-1.1cm)Left Atrium (MM)4.6 (1.6-4.0cm) LVDd5.8 (3.5-5.6cm)Aortic Root3.6 (2.0-3.7cm) PWd1.3 (0.7-1.1cm)Aortic Cusp Exc.2.4 (1.5-2.0cm) LVDs2.3 (2.5-4.0cm) PWs1.8 cm Normal left ventricular chamber size, systolic function and wall motion. Left ventricular ejection fraction estimated to be 60 %. Mild left ventricular hypertrophy. Anterior Echo-free space, may be due to pericardial fat or effusion. Mild bi-atrial enlargement. Mild right ventricular enlargement. Mild focal aortic valve sclerosis with adequate cusp excursion. Mildly thickened mitral valve leaflets with normal excursion. Mild mitral annulus and aortic root calcification. Pulmonic valve not well visualized. Normal tricuspid valve structure. No subcostal views obtainable. A color flow and spectral Doppler study was performed and revealed: No aortic regurgitation. Mild mitral regurgitation. Mitral diastolic velocities suggest reduced left ventricular relaxation c/w mild LV diastolic dysfunction (Grade I ). Mild tricuspid regurgitation. Tricuspid systolic velocities suggests peak right ventricular systolic pressure of 42 mmHg, consistent with mild pulmonary hypertension. Mild pulmonic regurgitation present.
[2017-01-23] MEDS: Atorvastatin 20mg tab ORAL SCH (21:48)
[2017-01-23] MEDS: Iron Sucrose 100 MG in NS 55 ML IVPB SCH (21:48)
[2017-01-24] VITALS (7 sets, daily range): BP systolic 138–175; BP diastolic 61–78
[2017-01-24] MEDS: NovoLOG Insulin Flexpen SUBQ SCH ×4 (06:40→21:27)
[2017-01-24 08:39] LABS: BASOPHILS % (AUTO) 0.8 % (0.0-2.0); EOSINOPHILS % (AUTO) 5.6 % (0.0-3.0); HEMATOCRIT 30.4 % (42.0-52.0); HEMOGLOBIN 10.1 G/DL (14.2-18.0); LYMPHOCYTES % (AUTO) 17.9 % (20.0-45.0); MEAN CORPUSCULAR VOLUME 94 FL (80-99); MONOCYTES % (AUTO) 6.9 % (1.0-10.0); NEUTROPHILS % (AUTO) 68.9 % (45.0-75.0); PLATELET COUNT 301 K/UL (150-450); RED BLOOD COUNT 3.22 M/UL (4.70-6.10); RED CELL DISTRIBUTION WIDTH 12.2 % (11.6-14.8); WHITE BLOOD COUNT 6.8 K/UL (4.8-10.8)
[2017-01-24 09:03] LABS: ANION GAP 11 mmol/L (5-15); BLOOD UREA NITROGEN 36 mg/dL (7-18); CALCIUM 8.4 MG/DL (8.5-10.1); CARBON DIOXIDE 20 MMOL/L (21-32); CHLORIDE 111 MMOL/L (98-107); INR 1.1 (0.9-1.1); POTASSIUM 3.5 MMOL/L (3.5-5.1); SODIUM 142 MMOL/L (136-145)
[2017-01-24 09:04] LABS: % IRON SATURATION 86 % (15-50); IRON 118 ug/dL (50-175); TOTAL IRON BINDING CAPACITY 137 ug/dL (250-450)
[2017-01-24 09:08] LABS: LACTATE DEHYDROGENASE 174 U/L (81-234)
[2017-01-24] MEDS: cefTRIAXone 2 GM in NS 110 ML IVPB SCH ×2 (09:16→12:43)
[2017-01-24] MEDS: Amiodarone 200mg tab ORAL SCH (09:25)
[2017-01-24] MEDS: Metoprolol 25mg tab ORAL SCH ×2 (09:26→21:24)
--- NOTE | 2017-01-24 09:30 | Pulmonology Progress Note ---
Assessment/Plan Problems: (1) Septic shock (2) Acute encephalopathy (3) ATN (acute tubular necrosis) (4) Atrial fibrillation (5) Urinary incontinence (6) Colitis (7) Diabetes mellitus Assessment/Plan renal function improving anemia w/u in process check electrolytes check cultures heart rate controlled f/u cardio recommendations. eliquis resumed Subjective Interval Events: doing better, no new complains Allergies: Coded Allergies: No Known Allergies (Unverified , 12/05/16) Objective Last 24 Hour Vital Signs Date Time Temp Pulse Resp B/P (MAP) Pulse Ox O2 Delivery O2 Flow Rate FiO2 01/24/17 09:26 59 173/64 01/24/17 08:00 97.9 59 20 173/64 96 Nasal Cannula 2.0 01/24/17 07:28 97 Room Air 21 01/24/17 07:28 Room Air 21 01/24/17 04:45 97.7 58 20 158/65 96 Room Air 01/24/17 04:43 97.7 58 20 158/65 96 Ambu-Bag 01/24/17 04:00 52 01/24/17 00:00 97.7 52 16 148/66 98 Nasal Cannula 2.0 01/24/17 00:00 58 01/23/17 21:00 59 158/60 01/23/17 20:37 97.5 59 20 158/60 97 Nasal Cannula 2.0 01/23/17 20:00 59 01/23/17 19:30 97 Room Air 21 01/23/17 19:30 Room Air 21 01/23/17 16:00 54 01/23/17 15:55 97.5 51 21 168/63 95 Nasal Cannula 3.0 01/23/17 12:56 97.6 52 20 143/54 100 Nasal Cannula 3.0 01/23/17 12:45 52 21 140/55 100 Nasal Cannula 3.0 01/23/17 12:40 51 18 128/53 99 Simple Mask 6.0 01/23/17 12:37 97.8 47 14 102/43 99 Simple Mask 6.0 01/23/17 12:37 57 18 97 01/23/17 12:36 47 16 99 01/23/17 12:00 55 01/23/17 12:00 97.7 51 19 149/56 96 Nasal Cannula 2.0 01/23/17 09:45 55 154/52 Intake and Output 01/24/17 01/25/17 19:00 07:00 Intake Total 270 ml Balance 270 ml Intake Oral 120 ml IV Total 150 ml General Appearance: WD/WN HEENT: normocephalic, atraumatic Respiratory/Chest: chest wall non-tender, lungs clear Cardiovascular: normal peripheral pulses, normal rate Abdomen: normal bowel sounds, soft, non tender Genitourinary: normal external genitalia Skin: no rash Neurologic/Psychiatric: 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 II-XII grossly normal Lymphatic: no neck adenopathy Laboratory Tests 01/24/17 07:15: White Blood Count 6.8, Red Blood Count 3.22L, Hemoglobin 10.1L, Hematocrit 30.4L , Mean Corpuscular Volume 94, Mean Corpuscular Hemoglobin 31.5H, Mean Corpuscular Hemoglobin Concent 33.3, Red Cell Distribution Width 12.2, Platelet Count 301, Mean Platelet Volume 6.2L, Neutrophils (%) (Auto) 68.9, Lymphocytes ( %) (Auto) 17.9L, Monocytes (%) (Auto) 6.9, Eosinophils (%) (Auto) 5.6H, Basophils (%) (Auto) 0.8, Neutrophils % (Manual) [Pending], Lymphocytes % ( Manual) [Pending], Platelet Estimate [Pending], Platelet Morphology [Pending], Erythrocyte Sedimentation Rate [Pending], Reticulocyte Count [Pending], Prothrombin Time 11.3, Prothromb Time International Ratio 1.1, Activated Partial Thromboplast Time 31, Sodium Level 142, Potassium Level 3.5, Chloride Level 111H, Carbon Dioxide Level 20L, Anion Gap 11, Blood Urea Nitrogen 36H, Creatinine 3.0H, Estimat Glomerular Filtration Rate , Glucose Level 124H, Calcium Level 8.4L, Iron Level 118, Total Iron Binding Capacity 137L, Percent Iron Saturation 86H, Unsaturated Iron Binding 19L, Lactate Dehydrogenase 174, Vitamin B12 Level [Pending], Folate [Pending] Current Medications Medications (Trade) Dose Ordered Sig/Nitin Route PRN Reason Start Time Stop Time Status Last Admin Dose Admin Acetaminophen (Tylenol) 650 mg Q4H PRN ORAL fever 01/19/17 18:45 02/18/17 18:44 01/21/17 00:12 Amiodarone HCl (Cordarone) 200 mg DAILY ORAL 01/20/17 09:00 02/19/17 08:59 01/24/17 09:25 Apixaban (Eliquis) 2.5 mg BID ORAL 01/24/17 18:00 02/23/17 17:59 UNV Atorvastatin Calcium (Lipitor) 20 mg BEDTIME ORAL 01/23/17 21:00 02/18/17 20:59 01/23/17 21:48 Ceftriaxone Sodium 2 gm/ Sodium Chloride 110 ml @ 220 mls/hr Q24H IVPB 01/24/17 13:00 01/31/17 12:59 Dextrose (Dextrose 50%) STAT PRN IV Hypoglycemia 01/19/17 18:45 02/18/17 18:44 Diphenhydramine HCl (Benadryl) 25 mg Q6H PRN ORAL Itching/Pruritis 01/19/17 18:45 02/18/17 18:44 Insulin Aspart (NovoLOG) BEFORE MEALS AND HS SUBQ 01/19/17 21:00 02/18/17 20:59 01/24/17 06:40 Iron Sucrose 100 mg/Sodium Chloride 60 ml @ 240 mls/hr BEDTIME IVPB 01/21/17 21:00 01/25/17 21:14 01/23/17 21:48 Lansoprazole (Prevacid) 30 mg DAILY ORAL 01/22/17 09:00 02/21/17 08:59 01/24/17 09:25 Metoprolol Tartrate (Lopressor) 25 mg Q12HR ORAL 01/22/17 21:00 02/21/17 20:59 01/24/17 09:26 Metronidazole 100 ml @ 100 mls/hr Q8HR IVPB 01/20/17 14:00 01/27/17 13:59 01/24/17 06:30 Nitroglycerin (Ntg) 0.4 mg Q5M X 3 DOSES PRN SL Prn Chest Pain 01/19/17 18:45 02/18/17 18:44 Ondansetron HCl (Zofran) 4 mg Q6H PRN IVP Nausea & Vomiting 01/19/17 18:45 02/18/17 18:44 Polyethylene Glycol (Miralax) 17 gm HSPRN PRN ORAL Constipation 01/19/17 18:45 02/18/17 18:44 Sodium Chloride 1,000 ml @ 50 mls/hr Q20H IV 01/23/17 11:00 02/22/17 10:59 01/24/17 07:00 Temazepam (Restoril) 15 mg HSPRN PRN ORAL Insomnia 01/19/17 18:45 01/26/17 18:44 ENOC BUSCH Jan 24, 2017 09:30
[2017-01-24] MEDS ORDERED: Metoprolol Succinate XL 50mg tab ORAL ONE (11:00)
--- NOTE | 2017-01-24 11:03 | GI Progress Note ---
Assessment/Plan Problems: (1) Ischemic colitis ICD Codes: K55.9 - Vascular disorder of intestine, unspecified SNOMED: 28175424 (2) Blood in stool ICD Codes: K92.1 - Melena SNOMED: 18972414, 492818022 (3) Colitis ICD Codes: K52.9 - Noninfective gastroenteritis and colitis, unspecified SNOMED: 84271536 (4) Gastroenteritis ICD Codes: K52.9 - Noninfective gastroenteritis and colitis, unspecified SNOMED: 08801196 (5) Dehydration ICD Codes: E86.0 - Dehydration SNOMED: 03807206 (6) Diabetes mellitus ICD Codes: E11.9 - Type 2 diabetes mellitus without complications SNOMED: 34055117 Status: stable Status Narrative Discussed with Dr. Richmond. Assessment/Plan s/p EGD/Colonoscopy SUMMARY OF FINDINGS: 1. Duodenal diverticulum. 2. Gastritis, status post biopsy. 3. Numerous gastric polyps, highly suspicious for fundic gland polyps status post biopsy. 4. Ischemic colitis status post biopsy. 5. Peridiverticulitis and colitis. 6. Diverticulosis. 7. Internal hemorrhoids. Assessment - N/V - resolved - HH - Hematochezia - diarrhea - C Diff (-) >> resolved - lactic acidosis - thickened GB - OB (+) - DM - HTN - CRF Recommendations Flagyl IV transition to PO when discharged follow up biopsy results and treat adv diet, tolerating venofer monitor H&H, prn transfusion outpatient follow up Subjective Subjective diarrhea resolved Objective Last 24 Hour Vital Signs Date Time Temp Pulse Resp B/P (MAP) Pulse Ox O2 Delivery O2 Flow Rate FiO2 01/24/17 09:26 59 173/64 01/24/17 08:00 97.9 59 20 173/64 96 Nasal Cannula 2.0 01/24/17 07:28 97 Room Air 21 01/24/17 07:28 Room Air 21 01/24/17 04:45 97.7 58 20 158/65 96 Room Air 01/24/17 04:43 97.7 58 20 158/65 96 Ambu-Bag 01/24/17 04:00 52 01/24/17 00:00 97.7 52 16 148/66 98 Nasal Cannula 2.0 01/24/17 00:00 58 01/23/17 21:00 59 158/60 01/23/17 20:37 97.5 59 20 158/60 97 Nasal Cannula 2.0 01/23/17 20:00 59 01/23/17 19:30 97 Room Air 21 01/23/17 19:30 Room Air 21 01/23/17 16:00 54 01/23/17 15:55 97.5 51 21 168/63 95 Nasal Cannula 3.0 01/23/17 12:56 97.6 52 20 143/54 100 Nasal Cannula 3.0 01/23/17 12:45 52 21 140/55 100 Nasal Cannula 3.0 01/23/17 12:40 51 18 128/53 99 Simple Mask 6.0 01/23/17 12:37 97.8 47 14 102/43 99 Simple Mask 6.0 01/23/17 12:37 57 18 97 01/23/17 12:36 47 16 99 01/23/17 12:00 55 01/23/17 12:00 97.7 51 19 149/56 96 Nasal Cannula 2.0 Intake and Output 01/24/17 01/25/17 19:00 07:00 Intake Total 320 ml Balance 320 ml Intake Oral 120 ml IV Total 200 ml Laboratory Tests Test 01/24/17 07:15 White Blood Count 6.8 K/UL (4.8-10.8) Red Blood Count 3.22 M/UL (4.70-6.10) L Hemoglobin 10.1 G/DL (14.2-18.0) L Hematocrit 30.4 % (42.0-52.0) L Mean Corpuscular Volume 94 FL (80-99) Mean Corpuscular Hemoglobin 31.5 PG (27.0-31.0) H Mean Corpuscular Hemoglobin Concent 33.3 G/DL (32.0-36.0) Red Cell Distribution Width 12.2 % (11.6-14.8) Platelet Count 301 K/UL (150-450) Mean Platelet Volume 6.2 FL (6.5-10.1) L Neutrophils (%) (Auto) 68.9 % (45.0-75.0) Lymphocytes (%) (Auto) 17.9 % (20.0-45.0) L Monocytes (%) (Auto) 6.9 % (1.0-10.0) Eosinophils (%) (Auto) 5.6 % (0.0-3.0) H Basophils (%) (Auto) 0.8 % (0.0-2.0) Neutrophils % (Manual) Pending Lymphocytes % (Manual) Pending Platelet Estimate Pending Platelet Morphology Pending Erythrocyte Sedimentation Rate 85 MM/HR (0-30) H Reticulocyte Count Pending Prothrombin Time 11.3 SEC (9.30-11.50) Prothromb Time International Ratio 1.1 (0.9-1.1) Activated Partial Thromboplast Time 31 SEC (23-33) Sodium Level 142 MMOL/L (136-145) Potassium Level 3.5 MMOL/L (3.5-5.1) Chloride Level 111 MMOL/L (98-107) H Carbon Dioxide Level 20 MMOL/L (21-32) L Anion Gap 11 mmol/L (5-15) Blood Urea Nitrogen 36 mg/dL (7-18) H Creatinine 3.0 MG/DL (0.55-1.30) H Estimat Glomerular Filtration Rate mL/min (>60) Glucose Level 124 MG/DL (74-106) H Calcium Level 8.4 MG/DL (8.5-10.1) L Iron Level 118 ug/dL (50-175) Total Iron Binding Capacity 137 ug/dL (250-450) L Percent Iron Saturation 86 % (15-50) H Unsaturated Iron Binding 19 ug/dL (112-346) L Lactate Dehydrogenase 174 U/L (81-234) Vitamin B12 Level 534 PG/ML (193-986) Folate 18.7 NG/ML (3.1-17.5) H Height (Feet): 5 Height (Inches): 11.00 Weight (Pounds): 178 General Appearance: WD/WN, no apparent distress, alert Cardiovascular: normal rate Respiratory/Chest: normal breath sounds, no respiratory distress Abdominal Exam: normal bowel sounds, non tender, soft Extremities: normal range of motion, non-tender Cathy Bosch N.PLisa Jan 24, 2017 11:03
--- NOTE | 2017-01-24 11:03 | GI Progress Note ---
Assessment/Plan Problems: (1) Ischemic colitis ICD Codes: K55.9 - Vascular disorder of intestine, unspecified SNOMED: 98285994 (2) Blood in stool ICD Codes: K92.1 - Melena SNOMED: 51166879, 589822348 (3) Colitis ICD Codes: K52.9 - Noninfective gastroenteritis and colitis, unspecified SNOMED: 58598129 (4) Gastroenteritis ICD Codes: K52.9 - Noninfective gastroenteritis and colitis, unspecified SNOMED: 91911328 (5) Dehydration ICD Codes: E86.0 - Dehydration SNOMED: 21519507 (6) Diabetes mellitus ICD Codes: E11.9 - Type 2 diabetes mellitus without complications SNOMED: 97186997 Status: stable Status Narrative Discussed with Dr. Richmond. Assessment/Plan s/p EGD/Colonoscopy SUMMARY OF FINDINGS: 1. Duodenal diverticulum. 2. Gastritis, status post biopsy. 3. Numerous gastric polyps, highly suspicious for fundic gland polyps status post biopsy. 4. Ischemic colitis status post biopsy. 5. Peridiverticulitis and colitis. 6. Diverticulosis. 7. Internal hemorrhoids. Assessment - N/V - resolved - HH - Hematochezia - diarrhea - C Diff (-) >> resolved - lactic acidosis - thickened GB - OB (+) - DM - HTN - CRF Recommendations Flagyl IV transition to PO when discharged follow up biopsy results and treat adv diet, tolerating venofer monitor H&H, prn transfusion outpatient follow up Subjective Subjective diarrhea resolved Objective Last 24 Hour Vital Signs Date Time Temp Pulse Resp B/P (MAP) Pulse Ox O2 Delivery O2 Flow Rate FiO2 01/24/17 09:26 59 173/64 01/24/17 08:00 97.9 59 20 173/64 96 Nasal Cannula 2.0 01/24/17 07:28 97 Room Air 21 01/24/17 07:28 Room Air 21 01/24/17 04:45 97.7 58 20 158/65 96 Room Air 01/24/17 04:43 97.7 58 20 158/65 96 Ambu-Bag 01/24/17 04:00 52 01/24/17 00:00 97.7 52 16 148/66 98 Nasal Cannula 2.0 01/24/17 00:00 58 01/23/17 21:00 59 158/60 01/23/17 20:37 97.5 59 20 158/60 97 Nasal Cannula 2.0 01/23/17 20:00 59 01/23/17 19:30 97 Room Air 21 01/23/17 19:30 Room Air 21 01/23/17 16:00 54 01/23/17 15:55 97.5 51 21 168/63 95 Nasal Cannula 3.0 01/23/17 12:56 97.6 52 20 143/54 100 Nasal Cannula 3.0 01/23/17 12:45 52 21 140/55 100 Nasal Cannula 3.0 01/23/17 12:40 51 18 128/53 99 Simple Mask 6.0 01/23/17 12:37 97.8 47 14 102/43 99 Simple Mask 6.0 01/23/17 12:37 57 18 97 01/23/17 12:36 47 16 99 01/23/17 12:00 55 01/23/17 12:00 97.7 51 19 149/56 96 Nasal Cannula 2.0 Intake and Output 01/24/17 01/25/17 19:00 07:00 Intake Total 320 ml Balance 320 ml Intake Oral 120 ml IV Total 200 ml Laboratory Tests Test 01/24/17 07:15 White Blood Count 6.8 K/UL (4.8-10.8) Red Blood Count 3.22 M/UL (4.70-6.10) L Hemoglobin 10.1 G/DL (14.2-18.0) L Hematocrit 30.4 % (42.0-52.0) L Mean Corpuscular Volume 94 FL (80-99) Mean Corpuscular Hemoglobin 31.5 PG (27.0-31.0) H Mean Corpuscular Hemoglobin Concent 33.3 G/DL (32.0-36.0) Red Cell Distribution Width 12.2 % (11.6-14.8) Platelet Count 301 K/UL (150-450) Mean Platelet Volume 6.2 FL (6.5-10.1) L Neutrophils (%) (Auto) 68.9 % (45.0-75.0) Lymphocytes (%) (Auto) 17.9 % (20.0-45.0) L Monocytes (%) (Auto) 6.9 % (1.0-10.0) Eosinophils (%) (Auto) 5.6 % (0.0-3.0) H Basophils (%) (Auto) 0.8 % (0.0-2.0) Neutrophils % (Manual) Pending Lymphocytes % (Manual) Pending Platelet Estimate Pending Platelet Morphology Pending Erythrocyte Sedimentation Rate 85 MM/HR (0-30) H Reticulocyte Count Pending Prothrombin Time 11.3 SEC (9.30-11.50) Prothromb Time International Ratio 1.1 (0.9-1.1) Activated Partial Thromboplast Time 31 SEC (23-33) Sodium Level 142 MMOL/L (136-145) Potassium Level 3.5 MMOL/L (3.5-5.1) Chloride Level 111 MMOL/L (98-107) H Carbon Dioxide Level 20 MMOL/L (21-32) L Anion Gap 11 mmol/L (5-15) Blood Urea Nitrogen 36 mg/dL (7-18) H Creatinine 3.0 MG/DL (0.55-1.30) H Estimat Glomerular Filtration Rate mL/min (>60) Glucose Level 124 MG/DL (74-106) H Calcium Level 8.4 MG/DL (8.5-10.1) L Iron Level 118 ug/dL (50-175) Total Iron Binding Capacity 137 ug/dL (250-450) L Percent Iron Saturation 86 % (15-50) H Unsaturated Iron Binding 19 ug/dL (112-346) L Lactate Dehydrogenase 174 U/L (81-234) Vitamin B12 Level 534 PG/ML (193-986) Folate 18.7 NG/ML (3.1-17.5) H Height (Feet): 5 Height (Inches): 11.00 Weight (Pounds): 178 General Appearance: WD/WN, no apparent distress, alert Cardiovascular: normal rate Respiratory/Chest: normal breath sounds, no respiratory distress Abdominal Exam: normal bowel sounds, non tender, soft Extremities: normal range of motion, non-tender Cathy Bosch N.PLisa Jan 24, 2017 11:03
--- NOTE | 2017-01-24 11:03 | GI Progress Note ---
Assessment/Plan Problems: (1) Ischemic colitis ICD Codes: K55.9 - Vascular disorder of intestine, unspecified SNOMED: 55201350 (2) Blood in stool ICD Codes: K92.1 - Melena SNOMED: 95296777, 692544977 (3) Colitis ICD Codes: K52.9 - Noninfective gastroenteritis and colitis, unspecified SNOMED: 83532806 (4) Gastroenteritis ICD Codes: K52.9 - Noninfective gastroenteritis and colitis, unspecified SNOMED: 67254766 (5) Dehydration ICD Codes: E86.0 - Dehydration SNOMED: 08394899 (6) Diabetes mellitus ICD Codes: E11.9 - Type 2 diabetes mellitus without complications SNOMED: 44691791 Status: stable Status Narrative Discussed with Dr. Richmond. Assessment/Plan s/p EGD/Colonoscopy SUMMARY OF FINDINGS: 1. Duodenal diverticulum. 2. Gastritis, status post biopsy. 3. Numerous gastric polyps, highly suspicious for fundic gland polyps status post biopsy. 4. Ischemic colitis status post biopsy. 5. Peridiverticulitis and colitis. 6. Diverticulosis. 7. Internal hemorrhoids. Assessment - N/V - resolved - HH - Hematochezia - diarrhea - C Diff (-) >> resolved - lactic acidosis - thickened GB - OB (+) - DM - HTN - CRF Recommendations Flagyl IV transition to PO when discharged follow up biopsy results and treat adv diet, tolerating venofer monitor H&H, prn transfusion outpatient follow up Subjective Subjective diarrhea resolved Objective Last 24 Hour Vital Signs Date Time Temp Pulse Resp B/P (MAP) Pulse Ox O2 Delivery O2 Flow Rate FiO2 01/24/17 09:26 59 173/64 01/24/17 08:00 97.9 59 20 173/64 96 Nasal Cannula 2.0 01/24/17 07:28 97 Room Air 21 01/24/17 07:28 Room Air 21 01/24/17 04:45 97.7 58 20 158/65 96 Room Air 01/24/17 04:43 97.7 58 20 158/65 96 Ambu-Bag 01/24/17 04:00 52 01/24/17 00:00 97.7 52 16 148/66 98 Nasal Cannula 2.0 01/24/17 00:00 58 01/23/17 21:00 59 158/60 01/23/17 20:37 97.5 59 20 158/60 97 Nasal Cannula 2.0 01/23/17 20:00 59 01/23/17 19:30 97 Room Air 21 01/23/17 19:30 Room Air 21 01/23/17 16:00 54 01/23/17 15:55 97.5 51 21 168/63 95 Nasal Cannula 3.0 01/23/17 12:56 97.6 52 20 143/54 100 Nasal Cannula 3.0 01/23/17 12:45 52 21 140/55 100 Nasal Cannula 3.0 01/23/17 12:40 51 18 128/53 99 Simple Mask 6.0 01/23/17 12:37 97.8 47 14 102/43 99 Simple Mask 6.0 01/23/17 12:37 57 18 97 01/23/17 12:36 47 16 99 01/23/17 12:00 55 01/23/17 12:00 97.7 51 19 149/56 96 Nasal Cannula 2.0 Intake and Output 01/24/17 01/25/17 19:00 07:00 Intake Total 320 ml Balance 320 ml Intake Oral 120 ml IV Total 200 ml Laboratory Tests Test 01/24/17 07:15 White Blood Count 6.8 K/UL (4.8-10.8) Red Blood Count 3.22 M/UL (4.70-6.10) L Hemoglobin 10.1 G/DL (14.2-18.0) L Hematocrit 30.4 % (42.0-52.0) L Mean Corpuscular Volume 94 FL (80-99) Mean Corpuscular Hemoglobin 31.5 PG (27.0-31.0) H Mean Corpuscular Hemoglobin Concent 33.3 G/DL (32.0-36.0) Red Cell Distribution Width 12.2 % (11.6-14.8) Platelet Count 301 K/UL (150-450) Mean Platelet Volume 6.2 FL (6.5-10.1) L Neutrophils (%) (Auto) 68.9 % (45.0-75.0) Lymphocytes (%) (Auto) 17.9 % (20.0-45.0) L Monocytes (%) (Auto) 6.9 % (1.0-10.0) Eosinophils (%) (Auto) 5.6 % (0.0-3.0) H Basophils (%) (Auto) 0.8 % (0.0-2.0) Neutrophils % (Manual) Pending Lymphocytes % (Manual) Pending Platelet Estimate Pending Platelet Morphology Pending Erythrocyte Sedimentation Rate 85 MM/HR (0-30) H Reticulocyte Count Pending Prothrombin Time 11.3 SEC (9.30-11.50) Prothromb Time International Ratio 1.1 (0.9-1.1) Activated Partial Thromboplast Time 31 SEC (23-33) Sodium Level 142 MMOL/L (136-145) Potassium Level 3.5 MMOL/L (3.5-5.1) Chloride Level 111 MMOL/L (98-107) H Carbon Dioxide Level 20 MMOL/L (21-32) L Anion Gap 11 mmol/L (5-15) Blood Urea Nitrogen 36 mg/dL (7-18) H Creatinine 3.0 MG/DL (0.55-1.30) H Estimat Glomerular Filtration Rate mL/min (>60) Glucose Level 124 MG/DL (74-106) H Calcium Level 8.4 MG/DL (8.5-10.1) L Iron Level 118 ug/dL (50-175) Total Iron Binding Capacity 137 ug/dL (250-450) L Percent Iron Saturation 86 % (15-50) H Unsaturated Iron Binding 19 ug/dL (112-346) L Lactate Dehydrogenase 174 U/L (81-234) Vitamin B12 Level 534 PG/ML (193-986) Folate 18.7 NG/ML (3.1-17.5) H Height (Feet): 5 Height (Inches): 11.00 Weight (Pounds): 178 General Appearance: WD/WN, no apparent distress, alert Cardiovascular: normal rate Respiratory/Chest: normal breath sounds, no respiratory distress Abdominal Exam: normal bowel sounds, non tender, soft Extremities: normal range of motion, non-tender Cathy Bosch N.PLisa Jan 24, 2017 11:03
[2017-01-24] MEDS ORDERED: Metoprolol Tartrate 12.5mg TAB ORAL STA (11:06)
--- NOTE | 2017-01-24 13:58 | Nephrology Progress Note ---
Assessment/Plan Problem List: (1) ATN (acute tubular necrosis) (2) Hypotension (3) Renal insufficiency Assessment Renal failure , ATN , superimposed on chronic , Cr lower peaked 4.5 now 3 Hypotension on admit, Etiology?? Improved Anemia, likely chronic HTN DM Atrial fibrillation - h/o Prostate Ca and surgery- incontinent h/o Back surgery Plan Plan: Hydrate- Keep BP above 100 syst Avoid nephrotoxics Monitor renal parameters watch for CHF per orders Subjective ROS Limited/Unobtainable: No Constitutional: Reports: malaise Objective Objective Last 24 Hour Vital Signs Date Time Temp Pulse Resp B/P (MAP) Pulse Ox O2 Delivery O2 Flow Rate FiO2 01/24/17 12:00 103 01/24/17 11:53 98.2 92 18 138/78 96 Nasal Cannula 2.0 01/24/17 11:25 120 173/64 01/24/17 09:26 59 173/64 01/24/17 08:00 97.9 59 20 173/64 96 Nasal Cannula 2.0 01/24/17 08:00 60 01/24/17 07:28 97 Room Air 21 01/24/17 07:28 Room Air 21 01/24/17 04:45 97.7 58 20 158/65 96 Room Air 01/24/17 04:43 97.7 58 20 158/65 96 Ambu-Bag 01/24/17 04:00 52 01/24/17 00:00 97.7 52 16 148/66 98 Nasal Cannula 2.0 01/24/17 00:00 58 01/23/17 21:00 59 158/60 01/23/17 20:37 97.5 59 20 158/60 97 Nasal Cannula 2.0 01/23/17 20:00 59 01/23/17 19:30 97 Room Air 21 01/23/17 19:30 Room Air 21 01/23/17 16:00 54 01/23/17 15:55 97.5 51 21 168/63 95 Nasal Cannula 3.0 Intake and Output 01/24/17 01/25/17 19:00 07:00 Intake Total 725 ml Balance 725 ml Intake Oral 240 ml IV Total 485 ml Laboratory Tests 01/24/17 07:15: White Blood Count 6.8, Red Blood Count 3.22L, Hemoglobin 10.1L, Hematocrit 30.4L , Mean Corpuscular Volume 94, Mean Corpuscular Hemoglobin 31.5H, Mean Corpuscular Hemoglobin Concent 33.3, Red Cell Distribution Width 12.2, Platelet Count 301, Mean Platelet Volume 6.2L, Neutrophils (%) (Auto) 68.9, Lymphocytes ( %) (Auto) 17.9L, Monocytes (%) (Auto) 6.9, Eosinophils (%) (Auto) 5.6H, Basophils (%) (Auto) 0.8, Differential Total Cells Counted 100, Neutrophils % ( Manual) 75, Lymphocytes % (Manual) 14L, Monocytes % (Manual) 6, Eosinophils % ( Manual) 5H, Basophils % (Manual) 0, Band Neutrophils 0, Platelet Estimate Adequate, Platelet Morphology Normal, Red Blood Cell Morphology Normal, Erythrocyte Sedimentation Rate 85H, Reticulocyte Count 0.8, Prothrombin Time 11.3, Prothromb Time International Ratio 1.1, Activated Partial Thromboplast Time 31, Sodium Level 142, Potassium Level 3.5, Chloride Level 111H, Carbon Dioxide Level 20L, Anion Gap 11, Blood Urea Nitrogen 36H, Creatinine 3.0H, Estimat Glomerular Filtration Rate , Glucose Level 124H, Calcium Level 8.4L, Iron Level 118, Total Iron Binding Capacity 137L, Percent Iron Saturation 86H, Unsaturated Iron Binding 19L, Lactate Dehydrogenase 174, Vitamin B12 Level 534, Folate 18.7H Height (Feet): 5 Height (Inches): 11.00 Weight (Pounds): 178 General Appearance: no apparent distress Cardiovascular: tachycardia Respiratory/Chest: decreased breath sounds Abdomen: soft Objective other PE not changed MILKA VALDEZ Jan 24, 2017 13:58
--- NOTE | 2017-01-24 14:47 | Cardiology Progress Note ---
Assessment/Plan Assessment/Plan 1. Dehydration 2. Prior episodes of atrial fibrillation paroxysmal recurrent 01/24/2017 3. Diabetes mellitus. 4. Hypertension. 5. Chronic renal insufficiency. 6. Anemia. 7. History of bacteremia. 8. Prostate cancer status post resection. trop neg cr little better he feels fine had afib earlier to day d/w rn incerased bb now seeem bck to sinus tel sinus afib ekg sinus eliquis resumed c diff neg blood cx neg ambulate Subjective Cardiovascular: Reports: palpitations, Denies: chest pain, irregular heart rate , lightheadedness Respiratory: Denies: shortness of breath Genitourinary: Reports: other - has catheter Objective Last 24 Hour Vital Signs Date Time Temp Pulse Resp B/P (MAP) Pulse Ox O2 Delivery O2 Flow Rate FiO2 01/24/17 12:00 103 01/24/17 11:53 98.2 92 18 138/78 96 Nasal Cannula 2.0 01/24/17 11:25 120 173/64 01/24/17 09:26 59 173/64 01/24/17 08:00 97.9 59 20 173/64 96 Nasal Cannula 2.0 01/24/17 08:00 60 01/24/17 07:28 97 Room Air 21 01/24/17 07:28 Room Air 21 01/24/17 04:45 97.7 58 20 158/65 96 Room Air 01/24/17 04:43 97.7 58 20 158/65 96 Ambu-Bag 01/24/17 04:00 52 01/24/17 00:00 97.7 52 16 148/66 98 Nasal Cannula 2.0 01/24/17 00:00 58 01/23/17 21:00 59 158/60 01/23/17 20:37 97.5 59 20 158/60 97 Nasal Cannula 2.0 01/23/17 20:00 59 01/23/17 19:30 97 Room Air 21 01/23/17 19:30 Room Air 21 01/23/17 16:00 54 01/23/17 15:55 97.5 51 21 168/63 95 Nasal Cannula 3.0 General Appearance: alert Neck: supple Cardiovascular: normal rate, regular rhythm Respiratory/Chest: lungs clear Abdomen: normal bowel sounds, non tender, soft Extremities: no swelling Intake and Output 01/24/17 01/25/17 19:00 07:00 Intake Total 825 ml Balance 825 ml Intake Oral 240 ml IV Total 585 ml Laboratory Tests Test 01/24/17 07:15 White Blood Count 6.8 K/UL (4.8-10.8) Red Blood Count 3.22 M/UL (4.70-6.10) L Hemoglobin 10.1 G/DL (14.2-18.0) L Hematocrit 30.4 % (42.0-52.0) L Mean Corpuscular Volume 94 FL (80-99) Mean Corpuscular Hemoglobin 31.5 PG (27.0-31.0) H Mean Corpuscular Hemoglobin Concent 33.3 G/DL (32.0-36.0) Red Cell Distribution Width 12.2 % (11.6-14.8) Platelet Count 301 K/UL (150-450) Mean Platelet Volume 6.2 FL (6.5-10.1) L Neutrophils (%) (Auto) 68.9 % (45.0-75.0) Lymphocytes (%) (Auto) 17.9 % (20.0-45.0) L Monocytes (%) (Auto) 6.9 % (1.0-10.0) Eosinophils (%) (Auto) 5.6 % (0.0-3.0) H Basophils (%) (Auto) 0.8 % (0.0-2.0) Differential Total Cells Counted 100 Neutrophils % (Manual) 75 % (45-75) Lymphocytes % (Manual) 14 % (20-45) L Monocytes % (Manual) 6 % (1-10) Eosinophils % (Manual) 5 % (0-3) H Basophils % (Manual) 0 % (0-2) Band Neutrophils 0 % (0-8) Platelet Estimate Adequate Platelet Morphology Normal Red Blood Cell Morphology Normal Erythrocyte Sedimentation Rate 85 MM/HR (0-30) H Reticulocyte Count 0.8 % (0.0-2.0) Prothrombin Time 11.3 SEC (9.30-11.50) Prothromb Time International Ratio 1.1 (0.9-1.1) Activated Partial Thromboplast Time 31 SEC (23-33) Sodium Level 142 MMOL/L (136-145) Potassium Level 3.5 MMOL/L (3.5-5.1) Chloride Level 111 MMOL/L (98-107) H Carbon Dioxide Level 20 MMOL/L (21-32) L Anion Gap 11 mmol/L (5-15) Blood Urea Nitrogen 36 mg/dL (7-18) H Creatinine 3.0 MG/DL (0.55-1.30) H Estimat Glomerular Filtration Rate mL/min (>60) Glucose Level 124 MG/DL (74-106) H Calcium Level 8.4 MG/DL (8.5-10.1) L Iron Level 118 ug/dL (50-175) Total Iron Binding Capacity 137 ug/dL (250-450) L Percent Iron Saturation 86 % (15-50) H Unsaturated Iron Binding 19 ug/dL (112-346) L Lactate Dehydrogenase 174 U/L (81-234) Vitamin B12 Level 534 PG/ML (193-986) Folate 18.7 NG/ML (3.1-17.5) H ARACELI PAULSON Jan 24, 2017 14:47
--- NOTE | 2017-01-24 15:24 | Cardiology Progress Note ---
Assessment/Plan Assessment/Plan 1. Dehydration 2. Prior episodes of atrial fibrillation paroxysmal recurrent 01/24/2017 3. Diabetes mellitus. 4. Hypertension. 5. Chronic renal insufficiency. 6. Anemia. 7. History of bacteremia. 8. Prostate cancer status post resection. 9. pause 3.8 sec on coversion to sinus from afib 01/24/2017 converted afib back to sinus with 3.8 sec pause will decerase bb back to 25 mg may evnetually need a pacer if has sx and recurrent afib trop neg cr little better he feels fine had afib earlier to day d/w rn incerased bb now seeem bck to sinus tel sinus afib ekg sinus eliquis resumed c diff neg blood cx neg ambulate this is an addendum to the not i did earlier today Objective Last 24 Hour Vital Signs Date Time Temp Pulse Resp B/P (MAP) Pulse Ox O2 Delivery O2 Flow Rate FiO2 01/24/17 12:00 103 01/24/17 11:53 98.2 92 18 138/78 96 Nasal Cannula 2.0 01/24/17 11:25 120 173/64 01/24/17 09:26 59 173/64 01/24/17 08:00 97.9 59 20 173/64 96 Nasal Cannula 2.0 01/24/17 08:00 60 01/24/17 07:28 97 Room Air 21 01/24/17 07:28 Room Air 21 01/24/17 04:45 97.7 58 20 158/65 96 Room Air 01/24/17 04:43 97.7 58 20 158/65 96 Ambu-Bag 01/24/17 04:00 52 01/24/17 00:00 97.7 52 16 148/66 98 Nasal Cannula 2.0 01/24/17 00:00 58 01/23/17 21:00 59 158/60 01/23/17 20:37 97.5 59 20 158/60 97 Nasal Cannula 2.0 01/23/17 20:00 59 01/23/17 19:30 97 Room Air 21 01/23/17 19:30 Room Air 21 01/23/17 16:00 54 01/23/17 15:55 97.5 51 21 168/63 95 Nasal Cannula 3.0 Intake and Output 01/24/17 01/25/17 19:00 07:00 Intake Total 825 ml Balance 825 ml Intake Oral 240 ml IV Total 585 ml Laboratory Tests Test 01/24/17 07:15 White Blood Count 6.8 K/UL (4.8-10.8) Red Blood Count 3.22 M/UL (4.70-6.10) L Hemoglobin 10.1 G/DL (14.2-18.0) L Hematocrit 30.4 % (42.0-52.0) L Mean Corpuscular Volume 94 FL (80-99) Mean Corpuscular Hemoglobin 31.5 PG (27.0-31.0) H Mean Corpuscular Hemoglobin Concent 33.3 G/DL (32.0-36.0) Red Cell Distribution Width 12.2 % (11.6-14.8) Platelet Count 301 K/UL (150-450) Mean Platelet Volume 6.2 FL (6.5-10.1) L Neutrophils (%) (Auto) 68.9 % (45.0-75.0) Lymphocytes (%) (Auto) 17.9 % (20.0-45.0) L Monocytes (%) (Auto) 6.9 % (1.0-10.0) Eosinophils (%) (Auto) 5.6 % (0.0-3.0) H Basophils (%) (Auto) 0.8 % (0.0-2.0) Differential Total Cells Counted 100 Neutrophils % (Manual) 75 % (45-75) Lymphocytes % (Manual) 14 % (20-45) L Monocytes % (Manual) 6 % (1-10) Eosinophils % (Manual) 5 % (0-3) H Basophils % (Manual) 0 % (0-2) Band Neutrophils 0 % (0-8) Platelet Estimate Adequate Platelet Morphology Normal Red Blood Cell Morphology Normal Erythrocyte Sedimentation Rate 85 MM/HR (0-30) H Reticulocyte Count 0.8 % (0.0-2.0) Prothrombin Time 11.3 SEC (9.30-11.50) Prothromb Time International Ratio 1.1 (0.9-1.1) Activated Partial Thromboplast Time 31 SEC (23-33) Sodium Level 142 MMOL/L (136-145) Potassium Level 3.5 MMOL/L (3.5-5.1) Chloride Level 111 MMOL/L (98-107) H Carbon Dioxide Level 20 MMOL/L (21-32) L Anion Gap 11 mmol/L (5-15) Blood Urea Nitrogen 36 mg/dL (7-18) H Creatinine 3.0 MG/DL (0.55-1.30) H Estimat Glomerular Filtration Rate mL/min (>60) Glucose Level 124 MG/DL (74-106) H Calcium Level 8.4 MG/DL (8.5-10.1) L Iron Level 118 ug/dL (50-175) Total Iron Binding Capacity 137 ug/dL (250-450) L Percent Iron Saturation 86 % (15-50) H Unsaturated Iron Binding 19 ug/dL (112-346) L Lactate Dehydrogenase 174 U/L (81-234) Vitamin B12 Level 534 PG/ML (193-986) Folate 18.7 NG/ML (3.1-17.5) H ARACELI PAULSON Jan 24, 2017 15:24
--- NOTE | 2017-01-24 15:32 | Infectious Diseases Prog Note ---
Assessment/Plan Assessment/Plan A: UCx : Enterococcus ( Colonizer ) Sepsis, SP Leukocytosis, SP Diarrhea ( Bloody ), Isch Colitis SP s/p EGD/Colonoscopy 1. Duodenal diverticulum. 2. Gastritis, status post biopsy. 3. Numerous gastric polyps, highly suspicious for fundic gland polyps status post biopsy. 4. Ischemic colitis status post biopsy. 5. Peridiverticulitis and colitis. 6. Diverticulosis. 7. Internal hemorrhoids. CDiff Neg CT: Colitis vs Enteritis LACosis , SP US: Cholelithiasis. Portal and gallbladder wall thickening, likely an artifact of incomplete distention. DM HTN, Prostate Ca s/p radical prostatectomy Pacemaker P: DC IV Rocephin and Flagyl d# 5 Monitor CBC Monitor BMP, Monitor Cx ( blood ) GI is following Subjective Allergies: Coded Allergies: No Known Allergies (Unverified , 12/05/16) Subjective SP EGD and colonoscopy Objective Vital Signs Last 24 Hour Vital Signs Date Time Temp Pulse Resp B/P (MAP) Pulse Ox O2 Delivery O2 Flow Rate FiO2 01/24/17 12:00 103 01/24/17 11:53 98.2 92 18 138/78 96 Nasal Cannula 2.0 01/24/17 11:25 120 173/64 01/24/17 09:26 59 173/64 01/24/17 08:00 97.9 59 20 173/64 96 Nasal Cannula 2.0 01/24/17 08:00 60 01/24/17 07:28 97 Room Air 21 01/24/17 07:28 Room Air 21 01/24/17 04:45 97.7 58 20 158/65 96 Room Air 01/24/17 04:43 97.7 58 20 158/65 96 Ambu-Bag 01/24/17 04:00 52 01/24/17 00:00 97.7 52 16 148/66 98 Nasal Cannula 2.0 01/24/17 00:00 58 01/23/17 21:00 59 158/60 01/23/17 20:37 97.5 59 20 158/60 97 Nasal Cannula 2.0 01/23/17 20:00 59 01/23/17 19:30 97 Room Air 21 01/23/17 19:30 Room Air 21 01/23/17 16:00 54 01/23/17 15:55 97.5 51 21 168/63 95 Nasal Cannula 3.0 Height (Feet): 5 Height (Inches): 11.00 Weight (Pounds): 178 HEENT: anicteric Respiratory/Chest: no respiratory distress Cardiovascular: regular rhythm Abdomen: no organomegaly Laboratory Tests Test 01/24/17 07:15 White Blood Count 6.8 K/UL (4.8-10.8) Red Blood Count 3.22 M/UL (4.70-6.10) L Hemoglobin 10.1 G/DL (14.2-18.0) L Hematocrit 30.4 % (42.0-52.0) L Mean Corpuscular Volume 94 FL (80-99) Mean Corpuscular Hemoglobin 31.5 PG (27.0-31.0) H Mean Corpuscular Hemoglobin Concent 33.3 G/DL (32.0-36.0) Red Cell Distribution Width 12.2 % (11.6-14.8) Platelet Count 301 K/UL (150-450) Mean Platelet Volume 6.2 FL (6.5-10.1) L Neutrophils (%) (Auto) 68.9 % (45.0-75.0) Lymphocytes (%) (Auto) 17.9 % (20.0-45.0) L Monocytes (%) (Auto) 6.9 % (1.0-10.0) Eosinophils (%) (Auto) 5.6 % (0.0-3.0) H Basophils (%) (Auto) 0.8 % (0.0-2.0) Differential Total Cells Counted 100 Neutrophils % (Manual) 75 % (45-75) Lymphocytes % (Manual) 14 % (20-45) L Monocytes % (Manual) 6 % (1-10) Eosinophils % (Manual) 5 % (0-3) H Basophils % (Manual) 0 % (0-2) Band Neutrophils 0 % (0-8) Platelet Estimate Adequate Platelet Morphology Normal Red Blood Cell Morphology Normal Erythrocyte Sedimentation Rate 85 MM/HR (0-30) H Reticulocyte Count 0.8 % (0.0-2.0) Prothrombin Time 11.3 SEC (9.30-11.50) Prothromb Time International Ratio 1.1 (0.9-1.1) Activated Partial Thromboplast Time 31 SEC (23-33) Sodium Level 142 MMOL/L (136-145) Potassium Level 3.5 MMOL/L (3.5-5.1) Chloride Level 111 MMOL/L (98-107) H Carbon Dioxide Level 20 MMOL/L (21-32) L Anion Gap 11 mmol/L (5-15) Blood Urea Nitrogen 36 mg/dL (7-18) H Creatinine 3.0 MG/DL (0.55-1.30) H Estimat Glomerular Filtration Rate mL/min (>60) Glucose Level 124 MG/DL (74-106) H Calcium Level 8.4 MG/DL (8.5-10.1) L Iron Level 118 ug/dL (50-175) Total Iron Binding Capacity 137 ug/dL (250-450) L Percent Iron Saturation 86 % (15-50) H Unsaturated Iron Binding 19 ug/dL (112-346) L Lactate Dehydrogenase 174 U/L (81-234) Vitamin B12 Level 534 PG/ML (193-986) Folate 18.7 NG/ML (3.1-17.5) H Current Medications Medications (Trade) Dose Ordered Sig/Nitin Route PRN Reason Start Time Stop Time Status Last Admin Dose Admin Acetaminophen (Tylenol) 650 mg Q4H PRN ORAL fever 01/19/17 18:45 02/18/17 18:44 01/21/17 00:12 Amiodarone HCl (Cordarone) 200 mg DAILY ORAL 01/20/17 09:00 02/19/17 08:59 01/24/17 09:25 Apixaban (Eliquis) 2.5 mg BID ORAL 01/24/17 18:00 02/23/17 17:59 Atorvastatin Calcium (Lipitor) 20 mg BEDTIME ORAL 01/23/17 21:00 02/18/17 20:59 01/23/17 21:48 Ceftriaxone Sodium 2 gm/ Sodium Chloride 110 ml @ 220 mls/hr Q24H IVPB 01/24/17 13:00 01/31/17 12:59 01/24/17 12:43 Dextrose (Dextrose 50%) STAT PRN IV Hypoglycemia 01/19/17 18:45 02/18/17 18:44 Diphenhydramine HCl (Benadryl) 25 mg Q6H PRN ORAL Itching/Pruritis 01/19/17 18:45 02/18/17 18:44 Insulin Aspart (NovoLOG) BEFORE MEALS AND HS SUBQ 01/19/17 21:00 02/18/17 20:59 01/24/17 11:27 Iron Sucrose 100 mg/Sodium Chloride 60 ml @ 240 mls/hr BEDTIME IVPB 01/21/17 21:00 01/25/17 21:14 01/23/17 21:48 Metoprolol Tartrate (Lopressor) 25 mg Q12HR ORAL 01/24/17 21:00 02/23/17 20:59 UNV Metronidazole 100 ml @ 100 mls/hr Q8HR IVPB 01/20/17 14:00 01/27/17 13:59 01/24/17 13:32 Nitroglycerin (Ntg) 0.4 mg Q5M X 3 DOSES PRN SL Prn Chest Pain 01/19/17 18:45 02/18/17 18:44 Ondansetron HCl (Zofran) 4 mg Q6H PRN IVP Nausea & Vomiting 01/19/17 18:45 02/18/17 18:44 Pantoprazole (Protonix) 40 mg DAILY ORAL 01/25/17 09:00 02/24/17 08:59 Polyethylene Glycol (Miralax) 17 gm HSPRN PRN ORAL Constipation 01/19/17 18:45 02/18/17 18:44 Sodium Chloride 1,000 ml @ 50 mls/hr Q20H IV 01/23/17 11:00 02/22/17 10:59 01/24/17 07:00 Temazepam (Restoril) 15 mg HSPRN PRN ORAL Insomnia 01/19/17 18:45 01/26/17 18:44 VALERIA PATIÑO M.D. Jan 24, 2017 15:32
[2017-01-24] MEDS: Eliquis 2.5mg tablet ORAL SCH (17:41)
[2017-01-24] MEDS ORDERED: Metoprolol 25mg tab ORAL SCH (21:00)
[2017-01-24] MEDS ORDERED: Metoprolol Succinate XL 50mg tab ORAL SCH (21:00)
[2017-01-24] MEDS: Atorvastatin 20mg tab ORAL SCH (21:25)
[2017-01-24] MEDS: Iron Sucrose 100 MG in NS 55 ML IVPB SCH (21:25)
[2017-01-25] VITALS: BP 169/61
[2017-01-25 04:00] VITALS: BP 156/66
[2017-01-25] MEDS: NovoLOG Insulin Flexpen SUBQ SCH ×3 (06:45→16:59)
--- NOTE | 2017-01-25 07:32 | Consultation ---
DATE OF CONSULTATION: 01/24/2017 NOTE: POOR AUDIO HEMATOLOGY/ONCOLOGY CONSULTATION CONSULTING PHYSICIAN: Leonard Conte M.D. REQUESTING PHYSICIAN: Lilli Nickerson M.D. REASON FOR CONSULTATION: Evaluation of anemia. IDENTIFICATION DATA: Dear Dr. Nickerson: The patient is a pleasant 86-year-old male, who admitted several days ago has a past medical history, which is significant for prostate cancer, status post radical prostatectomy, , pacemaker placement, history of leukocytosis, at this time presents to [facility] with altered mental status, acute onset of nausea, vomiting, and abdominal pain as well as diarrhea. Reports feeling dizzy. CAT scan of the abdomen and pelvis showed cholelithiasis. No acute intracranial pathology noted on the CAT scan of the head. Hematology Service was consulted given the patient's history of anemia. Workup initiated. PAST MEDICAL HISTORY: Hypertension and diabetes mellitus. PAST SURGICAL HISTORY: 1. Pacemaker placement. 2. Prostate cancer surgery in the past. MEDICATIONS: Amiodarone, omeprazole, and ranitidine. ALLERGIES: No known drug allergies. REVIEW OF SYSTEMS: CONSTITUTIONAL: No fever, chills, or night sweats. SKIN: No rashes, bumps, or itching. HEENT: No headache, hearing or vision changes. BREASTS: No lumps, pain, or discharge. PULMONARY: No cough, sputum, or shortness of breath. GASTROINTESTINAL: No nausea, vomiting, or diarrhea. GENITOURINARY: No dysuria, frequency, or urgency. MUSCULOSKELETAL: No joint swelling, muscle pain, or trauma. PHYSICAL EXAMINATION: GENERAL: The patient is in no distress. VITAL SIGNS: Temperature 98 degrees Fahrenheit, pulse rate 60, respiratory rate 12, blood pressure 114/58, pulse oximetry 99% on room air. PULMONARY: Decreased breath sounds. CARDIOVASCULAR: Regular rate. No S3 or S4. GASTROINTESTINAL: Abdomen is soft, nontender, and nondistended. EXTREMITIES: . LABORATORY DATA: WBC currently 6.8, hemoglobin 10.1, hematocrit 33, platelets 110, . INR 1.1. BUN 36, creatinine 3. ASSESSMENT AND RECOMMENDATIONS: 1. Anemia secondary to chronic disease. I have reviewed the workup. No evidence of bleeding. No evidence of hemolysis at this time. 2. Anemia Gastrointestinal bleed with hematochezia, on antibiotics. Has been seen by Gastrointestinal service. 3. Ischemic colitis, status post biopsy. 4. Diverticulosis. 5. Internal hemorrhoids. 6. Nausea and vomiting, resolved. 7. Hypertension. 8. Lactic acidosis. I appreciate the consultation. Leonard Conte M.D. DR: Abdon JOB#: [id number] CC:
[2017-01-25 07:45] VITALS: BP 186/68
[2017-01-25 08:01] LABS: BASOPHILS % (AUTO) 0.7 % (0.0-2.0); HEMATOCRIT 27.7 % (42.0-52.0); LYMPHOCYTES % (AUTO) 17.1 % (20.0-45.0); MEAN CORPUSCULAR VOLUME 91 FL (80-99); MONOCYTES % (AUTO) 8.1 % (1.0-10.0); NEUTROPHILS % (AUTO) 69.1 % (45.0-75.0); PLATELET COUNT 260 K/UL (150-450); RED BLOOD COUNT 3.03 M/UL (4.70-6.10); RED CELL DISTRIBUTION WIDTH 12.6 % (11.6-14.8); WHITE BLOOD COUNT 7.6 K/UL (4.8-10.8)
[2017-01-25 08:15] LABS: ALANINE AMINOTRANSFERASE 24 U/L (12-78); ALBUMIN 2.6 G/DL (3.4-5.0); ALBUMIN/GLOBULIN RATIO 0.7 (1.0-2.7); ALKALINE PHOSPHATASE 85 U/L (46-116); ANION GAP 13 mmol/L (5-15); ASPARTATE AMINO TRANSFERASE 38 U/L (15-37); BILIRUBIN,TOTAL 0.4 MG/DL (0.2-1.0); BLOOD UREA NITROGEN 29 mg/dL (7-18); CALCIUM 8.2 MG/DL (8.5-10.1); CARBON DIOXIDE 19 MMOL/L (21-32); CHLORIDE 109 MMOL/L (98-107); CREATININE 2.9 MG/DL (0.55-1.30); PHOSPHORUS 2.9 MG/DL (2.5-4.9); POTASSIUM 3.6 MMOL/L (3.5-5.1); SODIUM 141 MMOL/L (136-145)
[2017-01-25] MEDS: Eliquis 2.5mg tablet ORAL SCH ×2 (08:29→17:00)
[2017-01-25] MEDS: Amiodarone 200mg tab ORAL SCH (08:29)
[2017-01-25] MEDS: Metoprolol 25mg tab ORAL SCH (09:00)
[2017-01-25 10:05] VITALS: BP 163/67
--- NOTE | 2017-01-25 11:00 | GI Progress Note ---
Assessment/Plan Problems: (1) Ischemic colitis ICD Codes: K55.9 - Vascular disorder of intestine, unspecified SNOMED: 42926792 (2) Blood in stool ICD Codes: K92.1 - Melena SNOMED: 76697119, 777824610 (3) Colitis ICD Codes: K52.9 - Noninfective gastroenteritis and colitis, unspecified SNOMED: 95020937 (4) Gastroenteritis ICD Codes: K52.9 - Noninfective gastroenteritis and colitis, unspecified SNOMED: 02495491 (5) Dehydration ICD Codes: E86.0 - Dehydration SNOMED: 93665030 (6) Diabetes mellitus ICD Codes: E11.9 - Type 2 diabetes mellitus without complications SNOMED: 73447357 Status: stable, progressing Status Narrative Discussed with Dr. Richmond. Assessment/Plan s/p EGD/Colonoscopy SUMMARY OF FINDINGS: 1. Duodenal diverticulum. 2. Gastritis, status post biopsy. 3. Numerous gastric polyps, highly suspicious for fundic gland polyps status post biopsy. 4. Ischemic colitis status post biopsy. 5. Peridiverticulitis and colitis. 6. Diverticulosis. 7. Internal hemorrhoids. Assessment - N/V - resolved - HH - Hematochezia - diarrhea - C Diff (-) >> resolved - lactic acidosis - thickened GB - OB (+) - DM - HTN - CRF Recommendations >> okay for DC per GI standpoint Flagyl IV follow up biopsy results and treat adv diet, tolerating venofer monitor H&H, prn transfusion outpatient follow up Subjective Subjective diarrhea resolved Objective Last 24 Hour Vital Signs Date Time Temp Pulse Resp B/P (MAP) Pulse Ox O2 Delivery O2 Flow Rate FiO2 01/25/17 10:05 57 163/67 01/25/17 09:01 93 Nasal Cannula 2.0 28 01/25/17 09:01 Nasal Cannula 2.0 28 01/25/17 09:00 53 01/25/17 08:00 56 01/25/17 07:45 98.2 59 20 186/68 96 Nasal Cannula 2.0 01/25/17 04:00 97.7 58 20 156/66 97 Nasal Cannula 2.0 01/25/17 04:00 49 01/25/17 00:00 97.2 52 18 169/61 92 Nasal Cannula 2.0 01/25/17 00:00 53 01/24/17 21:24 67 155/63 01/24/17 20:00 56 01/24/17 20:00 97.2 59 20 175/70 Nasal Cannula 2.0 01/24/17 19:00 92 Nasal Cannula 2.0 28 01/24/17 19:00 Nasal Cannula 2.0 28 01/24/17 16:00 74 01/24/17 16:00 98.1 85 18 149/61 95 Nasal Cannula 2.0 01/24/17 12:00 103 01/24/17 11:53 98.2 92 18 138/78 96 Nasal Cannula 2.0 01/24/17 11:25 120 173/64 Intake and Output 01/25/17 01/26/17 19:00 07:00 Intake Total 240 ml Balance 240 ml Intake Oral 240 ml Laboratory Tests Test 01/25/17 07:35 White Blood Count 7.6 K/UL (4.8-10.8) Red Blood Count 3.03 M/UL (4.70-6.10) L Hemoglobin 10.0 G/DL (14.2-18.0) L Hematocrit 27.7 % (42.0-52.0) L Mean Corpuscular Volume 91 FL (80-99) Mean Corpuscular Hemoglobin 33.1 PG (27.0-31.0) H Mean Corpuscular Hemoglobin Concent 36.3 G/DL (32.0-36.0) H Red Cell Distribution Width 12.6 % (11.6-14.8) Platelet Count 260 K/UL (150-450) Mean Platelet Volume 6.1 FL (6.5-10.1) L Neutrophils (%) (Auto) 69.1 % (45.0-75.0) Lymphocytes (%) (Auto) 17.1 % (20.0-45.0) L Monocytes (%) (Auto) 8.1 % (1.0-10.0) Eosinophils (%) (Auto) 5.0 % (0.0-3.0) H Basophils (%) (Auto) 0.7 % (0.0-2.0) Sodium Level 141 MMOL/L (136-145) Potassium Level 3.6 MMOL/L (3.5-5.1) Chloride Level 109 MMOL/L (98-107) H Carbon Dioxide Level 19 MMOL/L (21-32) L Anion Gap 13 mmol/L (5-15) Blood Urea Nitrogen 29 mg/dL (7-18) H Creatinine 2.9 MG/DL (0.55-1.30) H Estimat Glomerular Filtration Rate mL/min (>60) Glucose Level 168 MG/DL (74-106) H Calcium Level 8.2 MG/DL (8.5-10.1) L Phosphorus Level 2.9 MG/DL (2.5-4.9) Magnesium Level 1.3 MG/DL (1.8-2.4) L Total Bilirubin 0.4 MG/DL (0.2-1.0) Aspartate Amino Transf (AST/SGOT) 38 U/L (15-37) H Alanine Aminotransferase (ALT/SGPT) 24 U/L (12-78) Alkaline Phosphatase 85 U/L (46-116) Total Protein 6.4 G/DL (6.4-8.2) Albumin 2.6 G/DL (3.4-5.0) L Globulin 3.8 g/dL Albumin/Globulin Ratio 0.7 (1.0-2.7) L Height (Feet): 5 Height (Inches): 11.00 Weight (Pounds): 178 General Appearance: WD/WN, no apparent distress, alert Cardiovascular: normal rate Respiratory/Chest: normal breath sounds, no respiratory distress Abdominal Exam: normal bowel sounds, non tender, soft Extremities: normal range of motion, non-tender Cathy Bosch N.PLisa Jan 25, 2017 11:00
--- NOTE | 2017-01-25 11:00 | GI Progress Note ---
Assessment/Plan Problems: (1) Ischemic colitis ICD Codes: K55.9 - Vascular disorder of intestine, unspecified SNOMED: 63874238 (2) Blood in stool ICD Codes: K92.1 - Melena SNOMED: 85197069, 803125337 (3) Colitis ICD Codes: K52.9 - Noninfective gastroenteritis and colitis, unspecified SNOMED: 71762319 (4) Gastroenteritis ICD Codes: K52.9 - Noninfective gastroenteritis and colitis, unspecified SNOMED: 59667650 (5) Dehydration ICD Codes: E86.0 - Dehydration SNOMED: 53939482 (6) Diabetes mellitus ICD Codes: E11.9 - Type 2 diabetes mellitus without complications SNOMED: 87009535 Status: stable, progressing Status Narrative Discussed with Dr. Richmond. Assessment/Plan s/p EGD/Colonoscopy SUMMARY OF FINDINGS: 1. Duodenal diverticulum. 2. Gastritis, status post biopsy. 3. Numerous gastric polyps, highly suspicious for fundic gland polyps status post biopsy. 4. Ischemic colitis status post biopsy. 5. Peridiverticulitis and colitis. 6. Diverticulosis. 7. Internal hemorrhoids. Assessment - N/V - resolved - HH - Hematochezia - diarrhea - C Diff (-) >> resolved - lactic acidosis - thickened GB - OB (+) - DM - HTN - CRF Recommendations >> okay for DC per GI standpoint Flagyl IV follow up biopsy results and treat adv diet, tolerating venofer monitor H&H, prn transfusion outpatient follow up Subjective Subjective diarrhea resolved Objective Last 24 Hour Vital Signs Date Time Temp Pulse Resp B/P (MAP) Pulse Ox O2 Delivery O2 Flow Rate FiO2 01/25/17 10:05 57 163/67 01/25/17 09:01 93 Nasal Cannula 2.0 28 01/25/17 09:01 Nasal Cannula 2.0 28 01/25/17 09:00 53 01/25/17 08:00 56 01/25/17 07:45 98.2 59 20 186/68 96 Nasal Cannula 2.0 01/25/17 04:00 97.7 58 20 156/66 97 Nasal Cannula 2.0 01/25/17 04:00 49 01/25/17 00:00 97.2 52 18 169/61 92 Nasal Cannula 2.0 01/25/17 00:00 53 01/24/17 21:24 67 155/63 01/24/17 20:00 56 01/24/17 20:00 97.2 59 20 175/70 Nasal Cannula 2.0 01/24/17 19:00 92 Nasal Cannula 2.0 28 01/24/17 19:00 Nasal Cannula 2.0 28 01/24/17 16:00 74 01/24/17 16:00 98.1 85 18 149/61 95 Nasal Cannula 2.0 01/24/17 12:00 103 01/24/17 11:53 98.2 92 18 138/78 96 Nasal Cannula 2.0 01/24/17 11:25 120 173/64 Intake and Output 01/25/17 01/26/17 19:00 07:00 Intake Total 240 ml Balance 240 ml Intake Oral 240 ml Laboratory Tests Test 01/25/17 07:35 White Blood Count 7.6 K/UL (4.8-10.8) Red Blood Count 3.03 M/UL (4.70-6.10) L Hemoglobin 10.0 G/DL (14.2-18.0) L Hematocrit 27.7 % (42.0-52.0) L Mean Corpuscular Volume 91 FL (80-99) Mean Corpuscular Hemoglobin 33.1 PG (27.0-31.0) H Mean Corpuscular Hemoglobin Concent 36.3 G/DL (32.0-36.0) H Red Cell Distribution Width 12.6 % (11.6-14.8) Platelet Count 260 K/UL (150-450) Mean Platelet Volume 6.1 FL (6.5-10.1) L Neutrophils (%) (Auto) 69.1 % (45.0-75.0) Lymphocytes (%) (Auto) 17.1 % (20.0-45.0) L Monocytes (%) (Auto) 8.1 % (1.0-10.0) Eosinophils (%) (Auto) 5.0 % (0.0-3.0) H Basophils (%) (Auto) 0.7 % (0.0-2.0) Sodium Level 141 MMOL/L (136-145) Potassium Level 3.6 MMOL/L (3.5-5.1) Chloride Level 109 MMOL/L (98-107) H Carbon Dioxide Level 19 MMOL/L (21-32) L Anion Gap 13 mmol/L (5-15) Blood Urea Nitrogen 29 mg/dL (7-18) H Creatinine 2.9 MG/DL (0.55-1.30) H Estimat Glomerular Filtration Rate mL/min (>60) Glucose Level 168 MG/DL (74-106) H Calcium Level 8.2 MG/DL (8.5-10.1) L Phosphorus Level 2.9 MG/DL (2.5-4.9) Magnesium Level 1.3 MG/DL (1.8-2.4) L Total Bilirubin 0.4 MG/DL (0.2-1.0) Aspartate Amino Transf (AST/SGOT) 38 U/L (15-37) H Alanine Aminotransferase (ALT/SGPT) 24 U/L (12-78) Alkaline Phosphatase 85 U/L (46-116) Total Protein 6.4 G/DL (6.4-8.2) Albumin 2.6 G/DL (3.4-5.0) L Globulin 3.8 g/dL Albumin/Globulin Ratio 0.7 (1.0-2.7) L Height (Feet): 5 Height (Inches): 11.00 Weight (Pounds): 178 General Appearance: WD/WN, no apparent distress, alert Cardiovascular: normal rate Respiratory/Chest: normal breath sounds, no respiratory distress Abdominal Exam: normal bowel sounds, non tender, soft Extremities: normal range of motion, non-tender Cathy Bosch N.PLisa Jan 25, 2017 11:00
--- NOTE | 2017-01-25 11:00 | GI Progress Note ---
Assessment/Plan Problems: (1) Ischemic colitis ICD Codes: K55.9 - Vascular disorder of intestine, unspecified SNOMED: 25765475 (2) Blood in stool ICD Codes: K92.1 - Melena SNOMED: 25110651, 058913792 (3) Colitis ICD Codes: K52.9 - Noninfective gastroenteritis and colitis, unspecified SNOMED: 92075364 (4) Gastroenteritis ICD Codes: K52.9 - Noninfective gastroenteritis and colitis, unspecified SNOMED: 76133371 (5) Dehydration ICD Codes: E86.0 - Dehydration SNOMED: 85227521 (6) Diabetes mellitus ICD Codes: E11.9 - Type 2 diabetes mellitus without complications SNOMED: 64516848 Status: stable, progressing Status Narrative Discussed with Dr. Richmond. Assessment/Plan s/p EGD/Colonoscopy SUMMARY OF FINDINGS: 1. Duodenal diverticulum. 2. Gastritis, status post biopsy. 3. Numerous gastric polyps, highly suspicious for fundic gland polyps status post biopsy. 4. Ischemic colitis status post biopsy. 5. Peridiverticulitis and colitis. 6. Diverticulosis. 7. Internal hemorrhoids. Assessment - N/V - resolved - HH - Hematochezia - diarrhea - C Diff (-) >> resolved - lactic acidosis - thickened GB - OB (+) - DM - HTN - CRF Recommendations >> okay for DC per GI standpoint Flagyl IV follow up biopsy results and treat adv diet, tolerating venofer monitor H&H, prn transfusion outpatient follow up Subjective Subjective diarrhea resolved Objective Last 24 Hour Vital Signs Date Time Temp Pulse Resp B/P (MAP) Pulse Ox O2 Delivery O2 Flow Rate FiO2 01/25/17 10:05 57 163/67 01/25/17 09:01 93 Nasal Cannula 2.0 28 01/25/17 09:01 Nasal Cannula 2.0 28 01/25/17 09:00 53 01/25/17 08:00 56 01/25/17 07:45 98.2 59 20 186/68 96 Nasal Cannula 2.0 01/25/17 04:00 97.7 58 20 156/66 97 Nasal Cannula 2.0 01/25/17 04:00 49 01/25/17 00:00 97.2 52 18 169/61 92 Nasal Cannula 2.0 01/25/17 00:00 53 01/24/17 21:24 67 155/63 01/24/17 20:00 56 01/24/17 20:00 97.2 59 20 175/70 Nasal Cannula 2.0 01/24/17 19:00 92 Nasal Cannula 2.0 28 01/24/17 19:00 Nasal Cannula 2.0 28 01/24/17 16:00 74 01/24/17 16:00 98.1 85 18 149/61 95 Nasal Cannula 2.0 01/24/17 12:00 103 01/24/17 11:53 98.2 92 18 138/78 96 Nasal Cannula 2.0 01/24/17 11:25 120 173/64 Intake and Output 01/25/17 01/26/17 19:00 07:00 Intake Total 240 ml Balance 240 ml Intake Oral 240 ml Laboratory Tests Test 01/25/17 07:35 White Blood Count 7.6 K/UL (4.8-10.8) Red Blood Count 3.03 M/UL (4.70-6.10) L Hemoglobin 10.0 G/DL (14.2-18.0) L Hematocrit 27.7 % (42.0-52.0) L Mean Corpuscular Volume 91 FL (80-99) Mean Corpuscular Hemoglobin 33.1 PG (27.0-31.0) H Mean Corpuscular Hemoglobin Concent 36.3 G/DL (32.0-36.0) H Red Cell Distribution Width 12.6 % (11.6-14.8) Platelet Count 260 K/UL (150-450) Mean Platelet Volume 6.1 FL (6.5-10.1) L Neutrophils (%) (Auto) 69.1 % (45.0-75.0) Lymphocytes (%) (Auto) 17.1 % (20.0-45.0) L Monocytes (%) (Auto) 8.1 % (1.0-10.0) Eosinophils (%) (Auto) 5.0 % (0.0-3.0) H Basophils (%) (Auto) 0.7 % (0.0-2.0) Sodium Level 141 MMOL/L (136-145) Potassium Level 3.6 MMOL/L (3.5-5.1) Chloride Level 109 MMOL/L (98-107) H Carbon Dioxide Level 19 MMOL/L (21-32) L Anion Gap 13 mmol/L (5-15) Blood Urea Nitrogen 29 mg/dL (7-18) H Creatinine 2.9 MG/DL (0.55-1.30) H Estimat Glomerular Filtration Rate mL/min (>60) Glucose Level 168 MG/DL (74-106) H Calcium Level 8.2 MG/DL (8.5-10.1) L Phosphorus Level 2.9 MG/DL (2.5-4.9) Magnesium Level 1.3 MG/DL (1.8-2.4) L Total Bilirubin 0.4 MG/DL (0.2-1.0) Aspartate Amino Transf (AST/SGOT) 38 U/L (15-37) H Alanine Aminotransferase (ALT/SGPT) 24 U/L (12-78) Alkaline Phosphatase 85 U/L (46-116) Total Protein 6.4 G/DL (6.4-8.2) Albumin 2.6 G/DL (3.4-5.0) L Globulin 3.8 g/dL Albumin/Globulin Ratio 0.7 (1.0-2.7) L Height (Feet): 5 Height (Inches): 11.00 Weight (Pounds): 178 General Appearance: WD/WN, no apparent distress, alert Cardiovascular: normal rate Respiratory/Chest: normal breath sounds, no respiratory distress Abdominal Exam: normal bowel sounds, non tender, soft Extremities: normal range of motion, non-tender Cathy Bosch N.PLisa Jan 25, 2017 11:00
[2017-01-25 11:20] VITALS: BP 169/62
[2017-01-25] MEDS ORDERED: LOPRESSOR25 M1 ORAL (12:54)
--- NOTE | 2017-01-25 13:02 | Pulmonology Progress Note ---
Assessment/Plan Problems: (1) Septic shock (2) Acute encephalopathy (3) ATN (acute tubular necrosis) (4) Atrial fibrillation (5) Urinary incontinence (6) Colitis (7) Diabetes mellitus Assessment/Plan renal function improving, slowly anemia w/u in process check electrolytes check cultures heart rate controlled f/u cardio recommendations. dilcia resumed dc home with HH today after clearance. Subjective ROS Limited/Unobtainable: No Constitutional: Reports: no symptoms HEENT: Repors: no symptoms Respiratory: Reports: no symptoms Allergies: Coded Allergies: No Known Allergies (Unverified , 12/05/16) Objective Last 24 Hour Vital Signs Date Time Temp Pulse Resp B/P (MAP) Pulse Ox O2 Delivery O2 Flow Rate FiO2 01/25/17 11:20 97.3 54 20 169/62 97 Nasal Cannula 2.0 01/25/17 10:05 57 163/67 01/25/17 09:01 93 Nasal Cannula 2.0 28 01/25/17 09:01 Nasal Cannula 2.0 28 01/25/17 09:00 56 01/25/17 09:00 53 01/25/17 07:45 98.2 59 20 186/68 96 Nasal Cannula 2.0 01/25/17 04:00 97.7 58 20 156/66 97 Nasal Cannula 2.0 01/25/17 04:00 49 01/25/17 00:00 97.2 52 18 169/61 92 Nasal Cannula 2.0 01/25/17 00:00 53 01/24/17 21:24 67 155/63 01/24/17 20:00 56 01/24/17 20:00 97.2 59 20 175/70 Nasal Cannula 2.0 01/24/17 19:00 92 Nasal Cannula 2.0 28 01/24/17 19:00 Nasal Cannula 2.0 28 01/24/17 16:00 74 01/24/17 16:00 98.1 85 18 149/61 95 Nasal Cannula 2.0 Intake and Output 01/25/17 01/26/17 19:00 07:00 Intake Total 480 ml Balance 480 ml Intake Oral 480 ml General Appearance: WD/WN HEENT: normocephalic, atraumatic Respiratory/Chest: chest wall non-tender, lungs clear Cardiovascular: normal peripheral pulses, normal rate Abdomen: normal bowel sounds, soft, non tender Genitourinary: normal external genitalia Extremities: no cyanosis, no clubbing Skin: no lesions 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, no motor/sensory deficits Lymphatic: no neck adenopathy Laboratory Tests 01/25/17 07:35: White Blood Count 7.6, Red Blood Count 3.03L, Hemoglobin 10.0L, Hematocrit 27.7L , Mean Corpuscular Volume 91, Mean Corpuscular Hemoglobin 33.1H, Mean Corpuscular Hemoglobin Concent 36.3H, Red Cell Distribution Width 12.6, Platelet Count 260, Mean Platelet Volume 6.1L, Neutrophils (%) (Auto) 69.1, Lymphocytes (%) (Auto) 17.1L, Monocytes (%) (Auto) 8.1, Eosinophils (%) (Auto) 5.0H, Basophils (%) (Auto) 0.7, Sodium Level 141, Potassium Level 3.6, Chloride Level 109H, Carbon Dioxide Level 19L, Anion Gap 13, Blood Urea Nitrogen 29H, Creatinine 2.9H, Estimat Glomerular Filtration Rate , Glucose Level 168H, Calcium Level 8.2L, Phosphorus Level 2.9, Magnesium Level 1.3L, Total Bilirubin 0.4, Aspartate Amino Transf (AST/SGOT) 38H, Alanine Aminotransferase (ALT/SGPT) 24, Alkaline Phosphatase 85, Total Protein 6.4, Albumin 2.6L, Globulin 3.8, Albumin/Globulin Ratio 0.7L Current Medications Medications (Trade) Dose Ordered Sig/Nitin Route PRN Reason Start Time Stop Time Status Last Admin Dose Admin Acetaminophen (Tylenol) 650 mg Q4H PRN ORAL fever 01/19/17 18:45 02/18/17 18:44 01/21/17 00:12 Amiodarone HCl (Cordarone) 200 mg DAILY ORAL 01/20/17 09:00 02/19/17 08:59 01/25/17 08:29 Apixaban (Eliquis) 2.5 mg BID ORAL 01/24/17 18:00 02/23/17 17:59 01/25/17 08:29 Atorvastatin Calcium (Lipitor) 20 mg BEDTIME ORAL 01/23/17 21:00 02/18/17 20:59 01/24/17 21:25 Dextrose (Dextrose 50%) STAT PRN IV Hypoglycemia 01/19/17 18:45 12/2/17 18:44 Diphenhydramine HCl (Benadryl) 25 mg Q6H PRN ORAL Itching/Pruritis 01/19/17 18:45 02/18/17 18:44 Insulin Aspart (NovoLOG) BEFORE MEALS AND HS SUBQ 01/19/17 21:00 02/18/17 20:59 01/25/17 12:01 Iron Sucrose 100 mg/Sodium Chloride 60 ml @ 240 mls/hr BEDTIME IVPB 01/21/17 21:00 01/25/17 21:14 01/24/17 21:25 Magnesium Sulfate 100 ml @ 100 mls/hr Q1H IVPB 01/25/17 10:00 01/25/17 12:59 01/25/17 11:07 Metoprolol Tartrate (Lopressor) 25 mg Q12HR ORAL 01/24/17 21:00 02/23/17 20:59 01/24/17 21:24 Metronidazole 100 ml @ 100 mls/hr Q8HR IVPB 01/20/17 14:00 01/27/17 13:59 01/25/17 05:48 Nitroglycerin (Ntg) 0.4 mg Q5M X 3 DOSES PRN SL Prn Chest Pain 01/19/17 18:45 02/18/17 18:44 Ondansetron HCl (Zofran) 4 mg Q6H PRN IVP Nausea & Vomiting 01/19/17 18:45 02/18/17 18:44 Pantoprazole (Protonix) 40 mg DAILY ORAL 01/25/17 09:00 02/24/17 08:59 01/25/17 08:29 Polyethylene Glycol (Miralax) 17 gm HSPRN PRN ORAL Constipation 01/19/17 18:45 02/18/17 18:44 Temazepam (Restoril) 15 mg HSPRN PRN ORAL Insomnia 01/19/17 18:45 01/26/17 18:44 ENOC BUSCH Jan 25, 2017 13:02
--- NOTE | 2017-01-25 13:27 | Infectious Diseases Prog Note ---
Assessment/Plan Assessment/Plan A: UCx : Enterococcus ( Colonizer ) Sepsis, SP Leukocytosis, SP Diarrhea ( Bloody ), Isch Colitis O/P : neg SP s/p EGD/Colonoscopy 1. Duodenal diverticulum. 2. Gastritis, status post biopsy. 3. Numerous gastric polyps, highly suspicious for fundic gland polyps status post biopsy. 4. Ischemic colitis status post biopsy. 5. Peridiverticulitis and colitis. 6. Diverticulosis. 7. Internal hemorrhoids. CDiff Neg CT: Colitis vs Enteritis LACosis , SP US: Cholelithiasis. Portal and gallbladder wall thickening, likely an artifact of incomplete distention. DM HTN, Prostate Ca s/p radical prostatectomy Pacemaker P: monitor pt off of AB Rx ,possible DC today 01/25 SP IV Rocephin and Flagyl d# 5 Monitor CBC Monitor BMP GI is following Subjective Constitutional: Denies: no symptoms, fever, chills, fatigue, anorexia, drenching sweats, other Allergies: Coded Allergies: No Known Allergies (Unverified , 12/05/16) Subjective SP EGD and colonoscopy Objective Vital Signs Last 24 Hour Vital Signs Date Time Temp Pulse Resp B/P (MAP) Pulse Ox O2 Delivery O2 Flow Rate FiO2 01/25/17 11:20 97.3 54 20 169/62 97 Nasal Cannula 2.0 01/25/17 10:05 57 163/67 01/25/17 09:01 93 Nasal Cannula 2.0 28 01/25/17 09:01 Nasal Cannula 2.0 28 01/25/17 09:00 56 01/25/17 09:00 53 01/25/17 07:45 98.2 59 20 186/68 96 Nasal Cannula 2.0 01/25/17 04:00 97.7 58 20 156/66 97 Nasal Cannula 2.0 01/25/17 04:00 49 01/25/17 00:00 97.2 52 18 169/61 92 Nasal Cannula 2.0 01/25/17 00:00 53 01/24/17 21:24 67 155/63 01/24/17 20:00 56 01/24/17 20:00 97.2 59 20 175/70 Nasal Cannula 2.0 01/24/17 19:00 92 Nasal Cannula 2.0 28 01/24/17 19:00 Nasal Cannula 2.0 28 01/24/17 16:00 74 01/24/17 16:00 98.1 85 18 149/61 95 Nasal Cannula 2.0 Height (Feet): 5 Height (Inches): 11.00 Weight (Pounds): 178 HEENT: atraumatic Respiratory/Chest: no respiratory distress Cardiovascular: regularly irregular Abdomen: non distended Laboratory Tests Test 01/25/17 07:35 White Blood Count 7.6 K/UL (4.8-10.8) Red Blood Count 3.03 M/UL (4.70-6.10) L Hemoglobin 10.0 G/DL (14.2-18.0) L Hematocrit 27.7 % (42.0-52.0) L Mean Corpuscular Volume 91 FL (80-99) Mean Corpuscular Hemoglobin 33.1 PG (27.0-31.0) H Mean Corpuscular Hemoglobin Concent 36.3 G/DL (32.0-36.0) H Red Cell Distribution Width 12.6 % (11.6-14.8) Platelet Count 260 K/UL (150-450) Mean Platelet Volume 6.1 FL (6.5-10.1) L Neutrophils (%) (Auto) 69.1 % (45.0-75.0) Lymphocytes (%) (Auto) 17.1 % (20.0-45.0) L Monocytes (%) (Auto) 8.1 % (1.0-10.0) Eosinophils (%) (Auto) 5.0 % (0.0-3.0) H Basophils (%) (Auto) 0.7 % (0.0-2.0) Sodium Level 141 MMOL/L (136-145) Potassium Level 3.6 MMOL/L (3.5-5.1) Chloride Level 109 MMOL/L (98-107) H Carbon Dioxide Level 19 MMOL/L (21-32) L Anion Gap 13 mmol/L (5-15) Blood Urea Nitrogen 29 mg/dL (7-18) H Creatinine 2.9 MG/DL (0.55-1.30) H Estimat Glomerular Filtration Rate mL/min (>60) Glucose Level 168 MG/DL (74-106) H Calcium Level 8.2 MG/DL (8.5-10.1) L Phosphorus Level 2.9 MG/DL (2.5-4.9) Magnesium Level 1.3 MG/DL (1.8-2.4) L Total Bilirubin 0.4 MG/DL (0.2-1.0) Aspartate Amino Transf (AST/SGOT) 38 U/L (15-37) H Alanine Aminotransferase (ALT/SGPT) 24 U/L (12-78) Alkaline Phosphatase 85 U/L (46-116) Total Protein 6.4 G/DL (6.4-8.2) Albumin 2.6 G/DL (3.4-5.0) L Globulin 3.8 g/dL Albumin/Globulin Ratio 0.7 (1.0-2.7) L Current Medications Medications (Trade) Dose Ordered Sig/Nitin Route PRN Reason Start Time Stop Time Status Last Admin Dose Admin Acetaminophen (Tylenol) 650 mg Q4H PRN ORAL fever 01/19/17 18:45 02/18/17 18:44 01/21/17 00:12 Amiodarone HCl (Cordarone) 200 mg DAILY ORAL 01/20/17 09:00 02/19/17 08:59 01/25/17 08:29 Apixaban (Eliquis) 2.5 mg BID ORAL 01/24/17 18:00 02/23/17 17:59 01/25/17 08:29 Atorvastatin Calcium (Lipitor) 20 mg BEDTIME ORAL 01/23/17 21:00 02/18/17 20:59 01/24/17 21:25 Dextrose (Dextrose 50%) STAT PRN IV Hypoglycemia 01/19/17 18:45 02/18/17 18:44 Diphenhydramine HCl (Benadryl) 25 mg Q6H PRN ORAL Itching/Pruritis 01/19/17 18:45 02/18/17 18:44 Insulin Aspart (NovoLOG) BEFORE MEALS AND HS SUBQ 01/19/17 21:00 02/18/17 20:59 01/25/17 12:01 Iron Sucrose 100 mg/Sodium Chloride 60 ml @ 240 mls/hr BEDTIME IVPB 01/21/17 21:00 01/25/17 21:14 01/24/17 21:25 Metoprolol Tartrate (Lopressor) 25 mg Q12HR ORAL 01/24/17 21:00 02/23/17 20:59 01/24/17 21:24 Metronidazole 100 ml @ 100 mls/hr Q8HR IVPB 01/20/17 14:00 01/27/17 13:59 01/25/17 05:48 Nitroglycerin (Ntg) 0.4 mg Q5M X 3 DOSES PRN SL Prn Chest Pain 01/19/17 18:45 02/18/17 18:44 Ondansetron HCl (Zofran) 4 mg Q6H PRN IVP Nausea & Vomiting 01/19/17 18:45 02/18/17 18:44 Pantoprazole (Protonix) 40 mg DAILY ORAL 01/25/17 09:00 02/24/17 08:59 01/25/17 08:29 Polyethylene Glycol (Miralax) 17 gm HSPRN PRN ORAL Constipation 01/19/17 18:45 02/18/17 18:44 Temazepam (Restoril) 15 mg HSPRN PRN ORAL Insomnia 01/19/17 18:45 01/26/17 18:44 VALERIA PATIÑO M.D. Jan 25, 2017 13:27
[2017-01-25 15:20] VITALS: BP 172/70
--- NOTE | 2017-01-25 15:35 | Nephrology Progress Note ---
Assessment/Plan Problem List: (1) ATN (acute tubular necrosis) (2) Hypotension (3) Renal insufficiency Assessment Renal failure , ATN , superimposed on chronic , Cr lower peaked 4.5 now 2.9 Hypotension on admit, Etiology?? Improved Anemia, likely chronic HTN DM Atrial fibrillation - h/o Prostate Ca and surgery- incontinent h/o Back surgery Plan Plan: Hydrate- Keep BP above 100 syst Avoid nephrotoxics Monitor renal parameters watch for CHF per orders Subjective ROS Limited/Unobtainable: No Constitutional: Reports: malaise, weakness Objective Objective Last 24 Hour Vital Signs Date Time Temp Pulse Resp B/P (MAP) Pulse Ox O2 Delivery O2 Flow Rate FiO2 01/25/17 15:20 97.9 58 20 172/70 96 Room Air 01/25/17 11:20 97.3 54 20 169/62 97 Nasal Cannula 2.0 01/25/17 10:05 57 163/67 01/25/17 09:01 93 Nasal Cannula 2.0 28 01/25/17 09:01 Nasal Cannula 2.0 28 01/25/17 09:00 56 01/25/17 09:00 53 01/25/17 07:45 98.2 59 20 186/68 96 Nasal Cannula 2.0 01/25/17 04:00 97.7 58 20 156/66 97 Nasal Cannula 2.0 01/25/17 04:00 49 01/25/17 00:00 97.2 52 18 169/61 92 Nasal Cannula 2.0 01/25/17 00:00 53 01/24/17 21:24 67 155/63 01/24/17 20:00 56 01/24/17 20:00 97.2 59 20 175/70 Nasal Cannula 2.0 01/24/17 19:00 92 Nasal Cannula 2.0 28 01/24/17 19:00 Nasal Cannula 2.0 28 01/24/17 16:00 74 01/24/17 16:00 98.1 85 18 149/61 95 Nasal Cannula 2.0 Intake and Output 01/25/17 01/26/17 19:00 07:00 Intake Total 480 ml Balance 480 ml Intake Oral 480 ml Laboratory Tests 01/25/17 07:35: White Blood Count 7.6, Red Blood Count 3.03L, Hemoglobin 10.0L, Hematocrit 27.7L , Mean Corpuscular Volume 91, Mean Corpuscular Hemoglobin 33.1H, Mean Corpuscular Hemoglobin Concent 36.3H, Red Cell Distribution Width 12.6, Platelet Count 260, Mean Platelet Volume 6.1L, Neutrophils (%) (Auto) 69.1, Lymphocytes (%) (Auto) 17.1L, Monocytes (%) (Auto) 8.1, Eosinophils (%) (Auto) 5.0H, Basophils (%) (Auto) 0.7, Sodium Level 141, Potassium Level 3.6, Chloride Level 109H, Carbon Dioxide Level 19L, Anion Gap 13, Blood Urea Nitrogen 29H, Creatinine 2.9H, Estimat Glomerular Filtration Rate , Glucose Level 168H, Calcium Level 8.2L, Phosphorus Level 2.9, Magnesium Level 1.3L, Total Bilirubin 0.4, Aspartate Amino Transf (AST/SGOT) 38H, Alanine Aminotransferase (ALT/SGPT) 24, Alkaline Phosphatase 85, Total Protein 6.4, Albumin 2.6L, Globulin 3.8, Albumin/Globulin Ratio 0.7L Height (Feet): 5 Height (Inches): 11.00 Weight (Pounds): 178 General Appearance: no apparent distress Cardiovascular: bradycardia Respiratory/Chest: decreased breath sounds Abdomen: soft Objective other PE not changed MILKA VALDEZ Jan 25, 2017 15:35
[2017-01-25] MEDS ORDERED: NS 275ml ONE (15:40)
[2017-01-25] MEDS ORDERED: Tubing IV Secondary IV ONE ×2 (15:40→17:59)
--- NOTE | 2017-01-25 23:16 | General Progress Note ---
Assessment/Plan Assessment/Plan ASSESSMENT AND RECOMMENDATIONS: 1. Anemia secondary to chronic disease. I have reviewed the workup. No evidence of hemolysis at this time. 2. Anemia 2/2Gastrointestinal bleed with hematochezia, on antibiotics. Has been seen by Gastrointestinal service. 3. Ischemic colitis, status post biopsy. 4. Diverticulosis. 5. Internal hemorrhoids. 6. Nausea and vomiting, resolved. 7. Hypertension. 8. Lactic acidosis. Subjective ROS Limited/Unobtainable: Yes Allergies: Coded Allergies: No Known Allergies (Unverified , 12/05/16) Subjective no events ovenrnight Objective Last 24 Hour Vital Signs Date Time Temp Pulse Resp B/P (MAP) Pulse Ox O2 Delivery O2 Flow Rate FiO2 01/25/17 16:00 59 01/25/17 15:20 97.9 58 20 172/70 96 Room Air 01/25/17 11:20 97.3 54 20 169/62 97 Nasal Cannula 2.0 01/25/17 10:05 57 163/67 01/25/17 09:01 93 Nasal Cannula 2.0 28 01/25/17 09:01 Nasal Cannula 2.0 28 01/25/17 09:00 56 01/25/17 09:00 53 01/25/17 07:45 98.2 59 20 186/68 96 Nasal Cannula 2.0 01/25/17 04:00 97.7 58 20 156/66 97 Nasal Cannula 2.0 01/25/17 04:00 49 01/25/17 00:00 97.2 52 18 169/61 92 Nasal Cannula 2.0 01/25/17 00:00 53 Intake and Output 01/25/17 01/26/17 19:00 07:00 Intake Total 895 ml Output Total 700 ml Balance 195 ml Intake Oral 895 ml Output Urine Total 700 ml Laboratory Tests 01/25/17 07:35: White Blood Count 7.6, Red Blood Count 3.03L, Hemoglobin 10.0L, Hematocrit 27.7L , Mean Corpuscular Volume 91, Mean Corpuscular Hemoglobin 33.1H, Mean Corpuscular Hemoglobin Concent 36.3H, Red Cell Distribution Width 12.6, Platelet Count 260, Mean Platelet Volume 6.1L, Neutrophils (%) (Auto) 69.1, Lymphocytes (%) (Auto) 17.1L, Monocytes (%) (Auto) 8.1, Eosinophils (%) (Auto) 5.0H, Basophils (%) (Auto) 0.7, Sodium Level 141, Potassium Level 3.6, Chloride Level 109H, Carbon Dioxide Level 19L, Anion Gap 13, Blood Urea Nitrogen 29H, Creatinine 2.9H, Estimat Glomerular Filtration Rate , Glucose Level 168H, Calcium Level 8.2L, Phosphorus Level 2.9, Magnesium Level 1.3L, Total Bilirubin 0.4, Aspartate Amino Transf (AST/SGOT) 38H, Alanine Aminotransferase (ALT/SGPT) 24, Alkaline Phosphatase 85, Total Protein 6.4, Albumin 2.6L, Globulin 3.8, Albumin/Globulin Ratio 0.7L Height (Feet): 5 Height (Inches): 11.00 Weight (Pounds): 178 General Appearance: no apparent distress EENT: normal ENT inspection Neck: normal alignment Cardiovascular: normal peripheral pulses Skin: normal pigmentation Leonard Conte Jan 25, 2017 23:16
--- NOTE | 2017-01-27 09:29 | Discharge Summary ---
Discharge Summary Hospital Course Date of Admission Jan 19, 2017 at 16:29 Date of Discharge Jan 25, 2017 at 18:00 Admitting Diagnosis hypotension HPI Kaiden Guo is a 86 year old male who was admitted on Jan 19, 2017 at 16:29 for Hypotension Hospital Course [id number] Discharge Discharge Disposition Patient was discharged to Home with Home Health(06) Discharge Diagnoses: Ally Ryan NP Jan 27, 2017 09:28
--- NOTE | 2017-01-27 09:29 | Discharge Summary ---
Discharge Summary Hospital Course Date of Admission Jan 19, 2017 at 16:29 Date of Discharge Jan 25, 2017 at 18:00 Admitting Diagnosis hypotension HPI Kaiden Guo is a 86 year old male who was admitted on Jan 19, 2017 at 16:29 for Hypotension Hospital Course [id number] Discharge Discharge Disposition Patient was discharged to Home with Home Health(06) Discharge Diagnoses: Ally Ryan NP Jan 27, 2017 09:28
--- NOTE | 2017-01-27 09:29 | Discharge Summary ---
Discharge Summary Hospital Course Date of Admission Jan 19, 2017 at 16:29 Date of Discharge Jan 25, 2017 at 18:00 Admitting Diagnosis hypotension HPI Kaiden Guo is a 86 year old male who was admitted on Jan 19, 2017 at 16:29 for Hypotension Hospital Course [id number] Discharge Discharge Disposition Patient was discharged to Home with Home Health(06) Discharge Diagnoses: Ally Ryan NP Jan 27, 2017 09:28
--- NOTE | 2017-01-27 19:00 | Discharge Summary 2 SIG ---
DATE OF ADMISSION: 01/19/2017 DATE OF DISCHARGE: 01/25/2017 CONSULTANTS: 1. Terrance Richmond M.D. 2. Fan Sheikh M.D. 3. Leonard Conte M.D. 4. Hussein Lamas M.D. 5. Seth Loredo M.D. BRIEF HOSPITAL COURSE: The patient is an 86-year-old male, who was taken by EMS to the ED for complaints of acute onset of nausea, vomiting, and abdominal pain and was noted to have blood in the stool. He has history of diabetes mellitus, hypertension, prostate CA, status post radical prostatectomy, and pacemaker. He presented to ED with altered mental status and reported little urine output. Workup in the ED showed low blood pressure 87/41. Laboratories with evidence of renal failure with BUN of [address] of the abdomen and pelvis showed possible enteritis, possible colitis, and cholelithiasis. Chest x-ray showed no acute pathology. He was seen by urologist, Dr. Loredo. 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 It has worked reasonably well until when he presented to the hospital where he was noted to have little urine output. On evaluation, sphincter was functioning well. There was no obstruction noted. Oliguria/anuria was possibly secondary to dehydration. Frias catheter was inserted. He was given IV hydration. Renal failure, possibly ATN superimposed on chronic. He was also followed by Dr. Sheikh as the patient has atrial fibrillation. He complained of bloody stool. Eliquis was placed on hold. The patient underwent endoscopy with EGD and colonoscopy on 01/23/2017. Findings showed multiple gastric polyps, duodenal diverticulum, gastritis, ischemic colitis, diverticulosis and internal hemorrhoids. He was also having diarrhea. Stool C. difficile, salmonella, shigella, and Campylobacter were negative. He was Flagyl. Urine culture with enterococcus and was given Rocephin. He had paroxysmal atrial fibrillation. Echocardiogram done showed EF of 60% with normal left ventricular size, function, and wall motion, RVSP 42 consistent with mild pulmonary hypertension. He was given amiodarone and metoprolol. He eventually converted to sinus rhythm, however, with 3.8 second pause. Metoprolol was decreased back to 25 mg. He was resumed on Eliquis and creatinine function improved. Frias catheter was discontinued and the patient was eventually discharged home. FINAL DIAGNOSES: 1. Sepsis with septic shock. 2. Acute toxic metabolic encephalopathy. 3. Hypotension. 4. Dehydration. 5. Acute renal failure, possible acute tubular necrosis on chronic renal failure. 6. Possible gastroenteritis. 7. Ischemic colitis. 8. Gastritis. 9. Duodenal diverticulum. 10. Gastric polyps. 11. Diverticulitis. 12. Internal hemorrhoids. 13. Diverticulosis. 14. Anemia secondary to chronic disease. 15. Anemia secondary to gastrointestinal bleed. 16. Paroxysmal atrial fibrillation. 17. History of prostate cancer, status post resection. 18. Pause, 3.8 seconds, and conversion to sinus from atrial fibrillation. DISPOSITION: The patient was discharged home with home health. 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 Lilli Nickerson M.D. I have been assigned to dictate discharge summary on this account and I was not involved in the patient's management. Ally Ryan N.P. DR: LIANNA JOB#: [id number] CC: KESHIA
== END 2017-01-25 18:00 | disposition home health service (06) | DRG 871 ==
LOC: EDBD 15:15 → EMR 16:16 → 2E 16:29 → EDBEDREQ 18:02 → 2E 01-24 00:41
DX: A41.9 Sepsis, unspecified organism (principal); N17.0 Acute kidney failure with tubular necrosis; R65.21 Severe sepsis with septic shock; K55.9 Vascular disorder of intestine, unspecified; I95.9 Hypotension, unspecified; G92 Toxic encephalopathy; I48.0 Paroxysmal atrial fibrillation; E11.22 Type 2 diabetes mellitus with diabetic chronic kidney disease; E86.0 Dehydration; D64.9 Anemia, unspecified; I12.9 Hypertensive chronic kidney disease with stage 1 through stage 4 chronic kidney disease, or unspecified chronic kidney disease; N18.9 Chronic kidney disease, unspecified; Z95.0 Presence of cardiac pacemaker; Z96.0 Presence of urogenital implants; K57.90 Diverticulosis of intestine, part unspecified, without perforation or abscess without bleeding; K57.10 Diverticulosis of small intestine without perforation or abscess without bleeding; K64.8 Other hemorrhoids; K29.70 Gastritis, unspecified, without bleeding; K31.7 Polyp of stomach and duodenum
CPT/HCPCS: 36415; 70450; 71010; 73502; 74176; 76700; 76775; 80048; 80053; 80061; 81001; 82150; 82270; 82550; 82553; 82607; 82728; 82746; 82962; 82977; 83036; 83540; 83550; 83605; 83615; 83690; 83735; 83880; 84100; 84153; 84154; 84439; 84443; 84484; 84550; 85007; 85025; 85044; 85060; 85610; 85651; 85730; 87040; 87045; 87086; 87181; 87324; 93005; 93306; 93970; 94003; 94150; 94760; J1815; J2250; J2405; J3490

== ENCOUNTER 2017-02-02 14:15 | Outpatient (CLI) | payer MEDICARE, OTHER ==
[~2017-02-02 14:15] MED LIST changes: +ACETAMINOPHEN-1 EAC1 ORAL; +AMIODARONE HCL400 M1 ORAL; +ATORVASTATIN CA20 MG ORAL; +GLIPIZIDE5 MG ORAL; +LOPRESSOR25 M1 ORAL; +OMEPRAZOLE40 M1 ORAL; +RAMIPRIL5 MG ORAL; +ZANTAC150 MG ORAL
[2017-02-02 14:24] VITALS: BP 142/59
--- NOTE | 2017-02-02 14:52 | GI Progress Note ---
Assessment/Plan Problems: (1) Ischemic colitis ICD Codes: K55.9 - Vascular disorder of intestine, unspecified SNOMED: 40088167 (2) Colitis ICD Codes: K52.9 - Noninfective gastroenteritis and colitis, unspecified SNOMED: 63072669 (3) Blood in stool ICD Codes: K92.1 - Melena SNOMED: 09593218, 074006471 (4) Diabetes mellitus ICD Codes: E11.9 - Type 2 diabetes mellitus without complications SNOMED: 61852824 (5) Hypertension ICD Codes: I10 - Essential (primary) hypertension SNOMED: 16271874 Status: stable Status Narrative Seen with Dr. Richmond. Assessment/Plan SUMMARY OF FINDINGS: 1. Duodenal diverticulum. 2. Gastritis, status post biopsy. 3. Numerous gastric polyps, highly suspicious for fundic gland polyps status post biopsy. 4. Ischemic colitis status post biopsy. 5. Peridiverticulitis and colitis. 6. Diverticulosis. 7. Internal hemorrhoids. RECOMMENDATIONS: see pathology report >> ischemic colitis RTC prn repeat colonoscopy x 1 year The patient was seen and examined at bedside and all new and available data was reviewed in the patients chart. I agree with the above findings, impression and plan. (Patient seen earlier today. Signature stamp does not reflect patient encounter time.). - Ramesh Richmond MD Subjective Gastrointestinal/Abdominal: Reports: no symptoms Subjective no current bloody stools EGD/colonoscopy review Objective T 98.1 BP 142/59 P 56 96 RA General Appearance: WD/WN, no apparent distress, alert Cardiovascular: normal rate Respiratory/Chest: normal breath sounds, no respiratory distress Abdominal Exam: normal bowel sounds, non tender, soft Extremities: normal range of motion, non-tender Cathy Bosch N.P. Feb 02, 2017 14:52 DWIGHT RICHMOND Feb 03, 2017 07:43
[2017-02-02] MEDS ORDERED: RAMIPRIL5 MG ORAL (14:53)
== END 2017-02-02 14:55 | disposition home or self-care (01) ==
LOC: PAN 14:15
DX: K55.9 Vascular disorder of intestine, unspecified (principal); K52.9 Noninfective gastroenteritis and colitis, unspecified; K92.1 Melena; E11.9 Type 2 diabetes mellitus without complications; I10 Essential (primary) hypertension; K57.10 Diverticulosis of small intestine without perforation or abscess without bleeding; K29.70 Gastritis, unspecified, without bleeding; K31.7 Polyp of stomach and duodenum; K57.92 Diverticulitis of intestine, part unspecified, without perforation or abscess without bleeding; K57.90 Diverticulosis of intestine, part unspecified, without perforation or abscess without bleeding; K64.8 Other hemorrhoids
CPT/HCPCS: 99211

== ENCOUNTER 2017-05-25 14:13 | Outpatient (CLI) | payer MEDICARE, OTHER ==
--- NOTE | 2017-05-25 15:57 | GI Progress Note ---
Assessment/Plan Problems: (1) Constipation ICD Codes: K59.00 - Constipation, unspecified SNOMED: 99267393 (2) Ischemic colitis ICD Codes: K55.9 - Vascular disorder of intestine, unspecified SNOMED: 08047616 Status: stable Status Narrative Seen with Dr. Richmond. Assessment/Plan SUMMARY OF FINDINGS: 1. Duodenal diverticulum. 2. Gastritis, status post biopsy. 3. Numerous gastric polyps, highly suspicious for fundic gland polyps status post biopsy. 4. Ischemic colitis status post biopsy. 5. Peridiverticulitis and colitis. 6. Diverticulosis. 7. Internal hemorrhoids. RECOMMENDATIONS: amitiza 24mcg BID RTC x 3 months, will consider repeat colonoscopy The patient was seen and examined at bedside and all new and available data was reviewed in the patients chart. I agree with the above findings, impression and plan. (Patient seen earlier today. Signature stamp does not reflect patient encounter time.). - Ramesh Richmond MD Subjective Gastrointestinal/Abdominal: Reports: no symptoms Subjective denies rectal bleeding constipation Objective T 97.6 BP 131/57 P 60 98 RA General Appearance: WD/WN, no apparent distress, alert Cardiovascular: normal rate Respiratory/Chest: normal breath sounds, no respiratory distress Abdominal Exam: normal bowel sounds, non tender, soft Extremities: normal range of motion, non-tender Cathy Bosch N.P. May 25, 2017 15:56 DWIGHT RICHMOND May 31, 2017 11:36
== END 2017-05-25 14:45 | disposition home or self-care (01) ==
LOC: PAN 14:13
DX: K59.00 Constipation, unspecified (principal); K55.9 Vascular disorder of intestine, unspecified; K57.90 Diverticulosis of intestine, part unspecified, without perforation or abscess without bleeding; K29.20 Alcoholic gastritis without bleeding; K31.7 Polyp of stomach and duodenum; K64.8 Other hemorrhoids

== ENCOUNTER 2017-08-22 10:57 | Outpatient (CLI) | payer MEDICARE, OTHER ==
--- NOTE | 2017-08-23 09:43 | GI Progress Note ---
Assessment/Plan Problems: (1) Constipation ICD Codes: K59.00 - Constipation, unspecified SNOMED: 36038856 (2) Ischemic colitis ICD Codes: K55.9 - Vascular disorder of intestine, unspecified SNOMED: 28021206 Status: doing well Status Narrative Seen with Dr. Richmond. Assessment/Plan PA for trulance approved Trial of Trulance RTC x 1 month Subjective Subjective occasional constipation, has been taking dulcolax and stool softeners with min effects no further rectal bleeding Objective T 97.5 BP 135/62 P 61 97 RA General Appearance: WD/WN, no apparent distress, alert Cardiovascular: normal rate Respiratory/Chest: normal breath sounds, no respiratory distress Abdominal Exam: normal bowel sounds, non tender, soft Extremities: normal range of motion, non-tender Hesham Bosch NP Aug 23, 2017 09:43
== END 2017-08-22 11:30 | disposition home or self-care (01) ==
LOC: PAN 10:57
DX: K59.00 Constipation, unspecified (principal); K55.9 Vascular disorder of intestine, unspecified
CPT/HCPCS: 99212

== ENCOUNTER 2017-11-21 10:03 | Outpatient (CLI) | payer MEDICARE, OTHER ==
--- NOTE | 2017-11-21 10:55 | GI Progress Note ---
Assessment/Plan Problems: (1) Constipation ICD Codes: K59.00 - Constipation, unspecified SNOMED: 93437071 (2) Colitis ICD Codes: K52.9 - Noninfective gastroenteritis and colitis, unspecified SNOMED: 02712202 (3) Hypertension ICD Codes: I10 - Essential (primary) hypertension SNOMED: 68290648 (4) Ischemic colitis ICD Codes: K55.9 - Vascular disorder of intestine, unspecified SNOMED: 52073950 Status: stable Status Narrative Seen with Dr. Richmond. Assessment/Plan Trial Amitiza RTC x 1 month The patient was seen and examined at bedside and all new and available data was reviewed in the patients chart. I agree with the above findings, impression and plan. (Patient seen earlier today. Signature stamp does not reflect patient encounter time.). - Terrance Richmond MD Subjective Gastrointestinal/Abdominal: Reports: constipated Subjective still has constipation did not refill trulance due to the high cost taking dulcolax and colace BM once q 3-4 days Objective T 96.7 BP 148/70 P 60 95 RA General Appearance: WD/WN, no apparent distress, alert Cardiovascular: normal rate Respiratory/Chest: normal breath sounds, no respiratory distress Abdominal Exam: normal bowel sounds, non tender, soft Extremities: normal range of motion, non-tender Hesham Bosch NP Nov 21, 2017 10:55
[2017-11-21 10:56] VITALS: BP 148/70
== END 2017-11-21 10:33 | disposition home or self-care (01) ==
LOC: PAN 10:03
DX: K59.00 Constipation, unspecified (principal); K52.9 Noninfective gastroenteritis and colitis, unspecified; I10 Essential (primary) hypertension; K55.9 Vascular disorder of intestine, unspecified
CPT/HCPCS: 99212